=== PATIENT | female | born 1980 | race Caucasian/White ===

== ENCOUNTER 2017-05-14 09:42 | Emergency (ER) | payer BC ==
[2017-05-14 13:01] VITALS: BP 119/74
--- NOTE | 2017-05-14 14:42 | UC ---
Throat Pain/Nasal Amos HPI - HPI Summary HPI Summary: Patient presents with complaints of runny nose, sore throat and swollen glands x three days. SHe also complains of generalized fatigue and malaise. She states tomorrow is [place] and wants to feel better. She denies any chest pain, abdominal pain, nausea, vomiting or diarrhea. - History of Current Complaint Chief Complaint: UCRespiratory Stated Complaint: SINUS ISSUE Time Seen by Provider: 05/14/17 14:32 Hx Obtained From: Patient Hx Last Menstrual Period: 05/10/17 Onset/Duration: Gradual Onset, Lasting Days Severity: Mild Cough: Nonproductive Associated Signs & Symptoms: Positive: Sinus Discomfort, Nasal Discharge - Epiglottits Risk Factors Epiglottis Risk Factors: Negative - Allergies/Home Medications Allergies/Adverse Reactions: Allergies Allergy/AdvReac Type Severity Reaction Status Date / Time Azithromycin [From Zithromax] Allergy Severe Hives Verified 05/14/17 13:01 Red Dye Allergy Severe Hives Verified 05/14/17 13:01 Lactose Intolerance (GI) Allergy Mild GI Upset Verified 05/14/17 13:01 Clarithromycin [From Biaxin] Allergy Hives Verified 05/14/17 13:01 Penicillins Allergy Hives Verified 05/14/17 13:01 PMH/Surg Hx/FS Hx/Imm Hx Previously Healthy: Yes - Surgical History Surgical History: Yes Surgery Procedure, Year, and Place: Tonsillectomy. Laproscopy for Endometriosis. cholecystectomy July 2013. wisdom teeth - Family History Known Family History: Positive: Hypertension, Diabetes, Respiratory Disease - Social History Occupation: Employed Full-time Lives: Alone Alcohol Use: Occasionally Alcohol Amount: states a couple times a month Substance Use Type: None Smoking Status (MU): Former Smoker Type: Cigarettes Amount Used/How Often: 1/2PPD Length of Time of Smoking/Using Tobacco: 10YRS Have You Smoked in the Last Year: Yes When Did the Patient Quit Smoking/Using Tobacco: mar 2015 Household Exposure Type: Cigarettes - Immunization History Most Recent Influenza Vaccination: 2016 Most Recent Tetanus Shot: 2013 Most Recent Pneumonia Vaccination: NONE Review of Systems Constitutional: Negative Skin: Negative Eyes: Negative ENT: Sore Throat, Ear Ache, Nasal Discharge, Sinus Congestion, Sinus Pain/ Tenderness Respiratory: Negative Cardiovascular: Negative Gastrointestinal: Negative Genitourinary: Negative Motor: Negative Neurovascular: Negative Musculoskeletal: Negative Neurological: Negative Psychological: Negative Is Patient Immunocompromised?: No All Other Systems Reviewed And Are Negative: Yes Physical Exam Triage Information Reviewed: Yes Appearance: Well-Appearing Vital Signs: Initial Vital Signs Temp 98.9 F 05/14/17 12:55 Pulse 96 05/14/17 12:55 Resp 14 05/14/17 12:55 BP 119/74 05/14/17 12:55 Pulse Ox 100 05/14/17 12:55 Vital Signs Reviewed: Yes Eye Exam: Normal ENT Exam: Normal Neck exam: Normal Neck: Positive: 1 Respiratory Exam: Normal Cardiovascular Exam: Normal Abdominal Exam: Normal Musculoskeletal Exam: Normal Neurological Exam: Normal Psychological Exam: Normal Skin Exam: Normal Throat Pain/Nasal Course/Dx - Course Course Of Treatment: Patient presents with complaints of runny nose, sore throat and chest congestion. VSS. Nontoxic appearance. Rapid strep negative. Symtpoms consistent with viral syndrome. Recommend that the patient increase fluidis, rest, tylenol for pain or temp greater that 100. and if symptoms do not improve as anticipated to follow up with pcp. - Differential Dx/Diagnosis Differential Diagnosis/HQI/PQRI: URI Provider Diagnoses: uri Discharge - Discharge Plan Condition: Stable Disposition: HOME Patient Education Materials: Upper Respiratory Infection (ED) Referrals: Lucero Escalante NP [Primary Care Provider] -
== END 2017-05-14 15:00 | disposition home or self-care (01) ==
LOC: UCEAST 09:42
DX: J06.9 Acute upper respiratory infection, unspecified (principal); Z88.1 Allergy status to other antibiotic agents; Z88.0 Allergy status to penicillin; Z91.02 Food additives allergy status; Z91.011 Allergy to milk products; Z87.891 Personal history of nicotine dependence
CPT/HCPCS: 87651; 99211; G0463

== ENCOUNTER 2018-08-13 10:21 | Emergency (ER) | payer BC ==
[2018-08-13 10:49] VITALS: BP 109/71
--- NOTE | 2018-08-13 10:59 | UC ---
Throat Pain/Nasal Amos HPI - HPI Summary HPI Summary: started 5-6 days ago with sinus congestion. congestion is no better and now has facial pressure and ear pain - History of Current Complaint Chief Complaint: UCRespiratory Stated Complaint: SINUS COMPLAINT Time Seen by Provider: 08/13/18 10:46 Hx Obtained From: Patient Hx Last Menstrual Period: 05/10/17 ?: No Onset/Duration: Gradual Onset Severity: Moderate Pain Intensity: 7 Cough: None Associated Signs & Symptoms: Positive: Sinus Discomfort, Nasal Discharge Related History: Seasonal Allergies - Allergies/Home Medications Allergies/Adverse Reactions: Allergies Allergy/AdvReac Type Severity Reaction Status Date / Time azithromycin [From Zithromax] Allergy Hives Verified 08/13/18 10:50 clarithromycin [From Biaxin] Allergy Hives Verified 08/13/18 10:50 lactose Allergy GI Upset Verified 08/13/18 10:50 Penicillins Allergy Hives Verified 08/13/18 10:50 red dye Allergy Hives Verified 08/13/18 10:50 Home Medications: Home Medications Cholecalciferol (Vitamin D3) [Vitamin D3] 2,000 unit PO 08/13/18 [History] Multivitamin [Multivitamins] 1 cap PO 08/13/18 [History] PMH/Surg Hx/FS Hx/Imm Hx Previously Healthy: Yes - Surgical History Surgical History: Yes Surgery Procedure, Year, and Place: Tonsillectomy. Laproscopy for Endometriosis. cholecystectomy July 2013. wisdom teeth - Family History Known Family History: Positive: Hypertension, Diabetes, Respiratory Disease - Social History Occupation: Employed Full-time - cost accountant Lives: With Family Alcohol Use: Occasionally Alcohol Amount: states a couple times a month Substance Use Type: None Smoking Status (MU): Former Smoker Type: Cigarettes Amount Used/How Often: 1/2PPD Length of Time of Smoking/Using Tobacco: 10YRS Have You Smoked in the Last Year: Yes When Did the Patient Quit Smoking/Using Tobacco: mar 2015 Household Exposure Type: Cigarettes - Immunization History Most Recent Influenza Vaccination: 2016 Most Recent Tetanus Shot: 2012 Most Recent Pneumonia Vaccination: NONE Review of Systems All Other Systems Reviewed And Are Negative: Yes Constitutional: Positive: Fatigue Skin: Positive: Negative Eyes: Positive: Negative ENT: Positive: Ear Ache, Sinus Congestion, Sinus Pain/Tenderness. Negative: Sore Throat Respiratory: Positive: Negative. Negative: Cough Cardiovascular: Positive: Negative Musculoskeletal: Positive: Negative Neurological: Positive: Negative. Negative: Headache Psychological: Positive: Negative Is Patient Immunocompromised?: No Physical Exam Triage Information Reviewed: Yes Appearance: Well-Appearing, No Pain Distress, Well-Nourished Vital Signs: Initial Vital Signs Temp 98.5 F 08/13/18 10:46 Pulse 81 08/13/18 10:46 Resp 18 08/13/18 10:46 BP 109/71 08/13/18 10:46 Pulse Ox 98 08/13/18 10:46 Vital Signs Reviewed: Yes Eyes: Positive: Conjunctiva Clear ENT: Positive: Pharynx normal, Nasal congestion, Nasal drainage, TMs normal, Other - white PND Neck: Positive: Supple, No Lymphadenopathy Respiratory Exam: Normal Respiratory: Positive: Lungs clear Cardiovascular Exam: Normal Cardiovascular: Positive: RRR Neurological Exam: Normal Psychological Exam: Normal Skin Exam: Normal Skin: Negative: Rashes Throat Pain/Nasal Course/Dx - Differential Dx/Diagnosis Differential Diagnosis/HQI/PQRI: Influenza, Otitis Media, Pharyngitis, Sinusitis Provider Diagnosis: Sinusitis Discharge - Sign-Out/Discharge Documenting (check all that apply): Patient Departure All imaging exams completed and their final reports reviewed: No Studies - Discharge Plan Condition: Good Disposition: HOME Prescriptions: Doxycycline Hyclate 100 mg PO BID #20 tablet Patient Education Materials: Sinusitis (ED) Referrals: Lucero Escalante NP [Primary Care Provider] - 2 Days (if no better) Additional Instructions: drink plenty of fluids and rest use sudafed (from behind the counter) as directed start antibiotic and take as directed - Billing Disposition and Condition Condition: GOOD Disposition: Home
== END 2018-08-13 11:14 | disposition home or self-care (01) ==
LOC: UCEAST 10:21
DX: J32.9 Chronic sinusitis, unspecified (principal); Z87.891 Personal history of nicotine dependence; Z88.1 Allergy status to other antibiotic agents; Z88.0 Allergy status to penicillin; Z91.09 Other allergy status, other than to drugs and biological substances; Z91.011 Allergy to milk products
CPT/HCPCS: 99212; G0463

== ENCOUNTER → 2018-09-07 12:02 | Emergency (ER) | payer BC ==
[~2018-09-07 12:02] MED LIST: KCL 20 MEQ/100 ML IVPREMIX* 20 MEQ/100 ML BAG IV ONE; NS 0.9% 1000 ML** 2,000 ML IV ONE; Ondansetron INJ* 2 MG/ML VIAL IV ONE; Potassium Chloride LIQUID* 20 MEQ PACKET PO ONE
[2018-09-07 12:46] LABS: ABS Basophils 0 10^3/ul (0-0.2); ABS Eosinophils 0 10^3/ul (0-0.6); ABS Monocytes 0.3 10^3/ul (0-0.8); ABS Nucleated RBC 0 10^3/ul; Eosinophil % 0 %; Hematocrit 39 % (33-41); Hemoglobin 13.4 g/dL (12.0-16.0); Lymphocyte % 10.8 %; Mean Corpuscular HGB Conc 35 g/dL (31-36); Mean Corpuscular Hemoglobin 31 pg (27-31); Mean Corpuscular Volume 89 fL (80-97); Mean Platelet Volume 8.3 fL (7.4-10.4); Nucleated Red Blood Cells % 0.1; Platelet Count 225 10^3/uL (150-450); Red Blood Count 4.35 10^6 /uL (3.70-4.87); Red Cell Distribution Width 12 % (10.5-15); White Blood Count 9.3 10^3/uL (3.5-10.8)
[2018-09-07 13:11] LABS: ALT 15 U/L (7-52); AST 18 U/L (13-39); Albumin 4.4 g/dL (3.2-5.2); Albumin/Globulin Ratio 1.6 (1-3); Alkaline Phosphatase 71 U/L (34-104); Anion Gap 12 mmol/L (2-11); Blood Urea Nitrogen 18 mg/dL (6-24); C Reactive Protein 48.86 mg/L (<8.01); CO2 Carbon Dioxide 23 mmol/L (22-32); Calcium 9.3 mg/dL (8.6-10.3); Chloride 103 mmol/L (101-111); EGFR African American 104.6 (>60); EGFR Non-African American 86.5 (>60); Globulin 2.7 g/dL (2-4); Glucose 105 mg/dL (70-100); Magnesium 1.9 mg/dL (1.9-2.7); Potassium 2.8 mmol/L (3.5-5.0); Sodium 138 mmol/L (135-145); Total Protein 7.1 g/dL (6.4-8.9)
[2018-09-07 13:16] LABS: HCG Pregnancy < 0.60 mIU/mL
--- NOTE | 2018-09-07 13:34 | ED ---
GI/ HPI - HPI Summary HPI Summary: 38-year-old female presents with nausea and vomiting for the past day. She states she started to get some cramping into her hand. Patient been able to keep anything down. States she also has bilateral flank pain. She denies any dysuria but she states she cannot feel her urination at baseline. She denies any fever. has had intermittent abdominal pain. no cough, chest pain or SOB. - History of Current Complaint Chief Complaint: EDAbdPain Time Seen by Provider: 09/07/18 12:13 Stated Complaint: NAUSEA/VOMITING PER EMS Hx Last Menstrual Period: 05/10/17 Pain Intensity: 6 - Allergy/Home Medications Allergies/Adverse Reactions: Allergies Allergy/AdvReac Type Severity Reaction Status Date / Time azithromycin [From Zithromax] Allergy Hives Verified 09/07/18 12:13 clarithromycin [From Biaxin] Allergy Hives Verified 09/07/18 12:13 lactose Allergy GI Upset Verified 09/07/18 12:13 Penicillins Allergy Hives Verified 09/07/18 12:13 red dye Allergy Hives Verified 09/07/18 12:13 PMH/Surg Hx/FS Hx/Imm Hx Endocrine/Hematology History: Denies: Hx Diabetes, Hx Thyroid Disease Cardiovascular History: Denies: Hx Hypertension Respiratory History: Denies: Hx Asthma, Hx Chronic Obstructive Pulmonary Disease (COPD) GI History: Denies: Hx Ulcer - Cancer History Hx Chemotherapy: No Hx Radiation Therapy: No - Surgical History Surgery Procedure, Year, and Place: Tonsillectomy. Laproscopy for Endometriosis. cholecystectomy July 2013. wisdom teeth Hx Anesthesia Reactions: No - Immunization History Immunizations Up to Date: Yes Infectious Disease History: No Infectious Disease History: Denies: Hx Clostridium Difficile, Hx Hepatitis, Hx Human Immunodeficiency Virus (HIV), Hx of Known/Suspected MRSA, Hx Shingles, Hx Tuberculosis, Hx Known/ Suspected VRE, Hx Known/Suspected VRSA, History Other Infectious Disease, Traveled Outside the [place] in Last 30 Days - Family History Known Family History: Positive: Hypertension, Diabetes, Respiratory Disease - Social History Alcohol Use: Occasionally Alcohol Amount: states a couple times a month Substance Use Type: Reports: None Smoking Status (MU): Former Smoker Type: Cigarettes Amount Used/How Often: 1/2PPD Length of Time of Smoking/Using Tobacco: 10YRS Have You Smoked in the Last Year: Yes Review of Systems Negative: Fever Negative: Chest Pain Negative: Shortness Of Breath Positive: Abdominal Pain, Vomiting, Diarrhea, Nausea Positive: Other - muscle cramps All Other Systems Reviewed And Are Negative: Yes Physical Exam Triage Information Reviewed: Yes Vital Signs On Initial Exam: Initial Vitals Temp Pulse Resp BP Pulse Ox 99.5 F 88 18 109/87 100 09/07/18 12:06 09/07/18 12:06 09/07/18 12:06 09/07/18 12:06 09/07/18 12:06 Vital Signs Reviewed: Yes Appearance: Positive: Well-Appearing Skin: Positive: Warm, Dry Head/Face: Positive: Normal Head/Face Inspection Eyes: Positive: Normal, EOMI, TOMMY, Conjunctiva Clear ENT: Positive: Normal ENT inspection, Pharynx normal, TMs normal Respiratory/Lung Sounds: Positive: Clear to Auscultation, Breath Sounds Present Cardiovascular: Positive: Normal, RRR Abdomen Description: Positive: Nontender, Soft. Negative: CVA Tenderness (R), CVA Tenderness (L) Bowel Sounds: Positive: Present Musculoskeletal: Positive: Normal Neurological: Positive: Normal Psychiatric: Positive: Normal Diagnostics - Vital Signs Vital Signs Temp Pulse Resp BP Pulse Ox 09/07/18 12:51 90 120/82 99 09/07/18 12:09 97 109/87 100 09/07/18 12:07 91 100 09/07/18 12:06 99.5 F 88 18 109/87 100 - Laboratory Lab Results: Lab Results 09/07/18 09/07/18 09/07/18 Range/Units 12:38 12:38 12:38 WBC 9.3 (3.5-10.8) 10^3/uL RBC 4.35 (3.70-4.87) 10^6 /uL Hgb 13.4 (12.0-16.0) g/dL Hct 39 (33-41) % MCV 89 (80-97) fL MCH 31 (27-31) pg MCHC 35 (31-36) g/dL RDW 12 (10.5-15) % Plt Count 225 (150-450) 10^3/uL MPV 8.3 (7.4-10.4) fL Neut % (Auto) 85.4 % Lymph % (Auto) 10.8 % [place] % (Auto) 3.5 % Eos % (Auto) 0 % Baso % (Auto) 0.3 % Absolute Neuts (auto) 8.0 H (1.5-7.7) 10^3/ul Absolute Lymphs (auto) 1.0 (1.0-4.8) 10^3/ul Absolute Monos (auto) 0.3 (0-0.8) 10^3/ul Absolute Eos (auto) 0 (0-0.6) 10^3/ul Absolute Basos (auto) 0 (0-0.2) 10^3/ul Absolute Nucleated RBC 0 10^3/ul Nucleated RBC % 0.1 Sodium 138 (135-145) mmol/L Potassium 2.8 L (3.5-5.0) mmol/L Chloride 103 (101-111) mmol/L Carbon Dioxide 23 (22-32) mmol/L Anion Gap 12 H (2-11) mmol/L BUN 18 (6-24) mg/dL Creatinine 0.75 (0.51-0.95) mg/dL Est GFR ( Amer) 104.6 (>60) Est GFR (Non-Af Amer) 86.5 (>60) BUN/Creatinine Ratio 24.0 H (8-20) Glucose 105 H (70-100) mg/dL Lactic Acid 2.0 (0.5-2.0) mmol/L Calcium 9.3 (8.6-10.3) mg/dL Magnesium 1.9 (1.9-2.7) mg/dL Total Bilirubin 1.40 H (0.2-1.0) mg/dL AST 18 (13-39) U/L ALT 15 (7-52) U/L Alkaline Phosphatase 71 (34-104) U/L C-Reactive Protein 48.86 H (<8.01) mg/L Total Protein 7.1 (6.4-8.9) g/dL Albumin 4.4 (3.2-5.2) g/dL Globulin 2.7 (2-4) g/dL Albumin/Globulin Ratio 1.6 (1-3) Lipase < 10 L (11.0-82.0) U/L Beta HCG, Quant < 0.60 mIU/mL Result Diagrams: 09/07/18 12:38 09/07/18 12:38 Lab Statement: Any lab studies that have been ordered have been reviewed, and results considered in the medical decision making process. - EKG No standard instances Cardiac Rate: NL EKG Rhythm: Sinus Rhythm Summary of EKG Findings: sinus rhythm Re-Evaluation - Re-Evaluation First Eval Re-Evaluation Time: 13:33 Change: Improved Comment: feeling better Second Eval Re-Evaluation Time: 15:35 Comment: tolerating potassium oral Third Eval Re-Evaluation Time: 16:29 Change: Improved Comment: feeling ready to go home GIGU Course/Dx - Course Course Of Treatment: 38-year-old female presents with nausea and vomiting for the past day. She states she started to get some cramping into her hand. Patient been able to keep anything down. States she also has bilateral flank pain. She denies any dysuria but she states she cannot feel her urination at baseline. She denies any fever. has had intermittent abdominal pain. no cough, chest pain or SOB. on exam neg CVA tenderness. nontender abd. wbc normal. potassium 2.98 so gave run of potassium and oral potassium. urine no infection. patient is feeling better. will discharge with zofran and two dose of potassium for next two days. patient understand and agrees with plan. - Diagnoses Differential Diagnoses - Female: Gastroenteritis (Viral), Gastroenteritis ( Bacterial), Urinary Tract Infection Provider Diagnoses: Vomiting, Hypokalemia Discharge - Sign-Out/Discharge Documenting (check all that apply): Patient Departure Patient Received Moderate/Deep Sedation with Procedure: No - Discharge Plan Condition: Good Disposition: HOME Prescriptions: Ondansetron ODT TAB* [Zofran 4 MG Odt TAB*] 4 mg PO Q6H PRN #16 tab.odt PRN Reason: Nausea Potassium Chlor TAB* [Potassium Chlor TAB 20 MEQ*] 20 meq PO DAILY #2 tab.er Patient Education Materials: Acute Nausea and Vomiting (ED) Referrals: Lucero Escalante NP [Primary Care Provider] - Additional Instructions: Can take Zofran every 6 hours as needed for nausea take potassium daily for 2 more days Drink small amounts of fluid as tolerated When able to eat follow BRAT diet: Bananas, rice, applesauce, toast Take ibuprofen or Tylenol for pain as needed every 6 hours Follow up with primary within 5 days Return to ED if develop any new or worsening symptoms - Billing Disposition and Condition Condition: GOOD Disposition: Home
[2018-09-07 16:11] LABS: Urine Appearance Clear; Urine Bilirubin Negative (Negative); Urine Blood Negative (Negative); Urine Color Yellow; Urine Glucose Negative (Negative); Urine Ketones 1+ (Negative); Urine Nitrite Negative (Negative); Urine Protein Negative (Negative); Urine Specific Gravity 1.021 (1.010-1.030); Urine Urobilinogen Negative (Negative)
[2018-09-07 16:38] VITALS: BP 125/80
== END | disposition home or self-care (01) ==
LOC: ED 12:02
DX: R11.10 Vomiting, unspecified (principal); R94.31 Abnormal electrocardiogram [ECG] [EKG]; E87.6 Hypokalemia; Z88.3 Allergy status to other anti-infective agents; Z88.0 Allergy status to penicillin
CPT/HCPCS: 36415; 80053; 81003; 83605; 83690; 83735; 84702; 85025; 86140; 93005; 96361; 96365; 96366; 96375; 99283; A9270-GY; J2405; J3480

== ENCOUNTER 2018-11-30 12:44 | Observation (INO) | payer BC ==
--- OUTSIDE RECORDS SUMMARY | 2018-11-30 13:08 | XMS REPORT | Continuity of Care Document ---
:1980 External Reference #:[id number] Author Name Lucinda Mccurdy Care Team Providers Name Role Phone Dulce Cm MD Primary Care Physician Unavailable Payers Date Identification Numbers Payment Provider Subscriber Effective: 2013 Policy Number: [id number] [employer] Facets Theresa Marie PayID: [id number] [address] [address] [place] [address] Effective: 2010 Policy Number: [id number] [employer] Theresa Marie Expires: 2013 PayID: [id number] [address] [address] [place] [address] Problems Active Problems Provider Date Mixed hypercholesterolemia and Gerardo Gaviria NP Onset: 01/30/2015 hypertriglyceridemia Resolved Problems Tobacco user Myrna Li M.D. Onset: 08/25/2011 Resolved: 05/25/2017 Family History Date Family Member(s) Observation Comments Father NE (age 50's),Stents, HTN, Hyperlipidemia Age 66 Mother Hypercholesterolemia Arthritis - Total Knee Replacement Age 65 Siblings 3 2 Sisters - Healthy 1 Brother - Healthy, ? diverticulosis Paternal Grandfather Emphysema Pneumonia age 70 Paternal Grandmother Emphysema age 70 Maternal Grandfather Coronary Artery Disease (CAD) CABG 4 vessel at age 84 Age 85 Maternal Grandmother Cancer Maternal Grandmother Breast Cancer (postmenopausal) Social History Type Date Description Comments Sex Unknown ETOH Use Currently consumes 0 - 5 per week alcohol Tobacco Use Start: Unknown End: Patient is a former Started age 18; Quit Unknown smoker Mar 2015; smoked less than 10 cigs per day Smoking Status Reviewed: 11/29/18 Patient is a former Started age 18; Quit smoker Mar 2015; smoked less than 10 cigs per day Exercise Exercises sporadically Type/Frequency Allergies, Adverse Reactions, Alerts Active Allergies Reaction Severity Comments Date Zithromax hives Moderate 08/25/2011 Augmentin 04/01/2015 Penicillins 04/11/2015 Biaxin Nausea, Hives, swelling 05/27/2016 Medications Active Medications SIG Qnty Indications Ordering Date Provider Omeprazole 1 by mouth every 90caps R14.0 Arlene Marie, 11/16/[address] day 1/2 hour THERAPEUTIC RADIOLOGIST before breakfast Simethicone Extra one by mouth four 60caps R14.0 Lucero Escalante, 11/13/2018 Strength times a day as N.P. 125mg Capsules needed Ondansetron HCL one by mouth 30tabs Lucero Escalante, 11/10/2018 4mg Tablets every 6 hours as N.P. needed for nausea Sudafed 12 Hour 1 by mouth twice 14tabs Lucero Escalante, 10/31/2017 120mg day as needed N.P. Tablets ER 12HR Vitamin D-3 2 by mouth every Lucero Escalante, 11/01/2016 1000Unit day N.P. Capsules Aleve 1-2 po qd prn 60caps Unknown 220mg Capsules during periods Levocetirizine Unknown Dihydrochloride 5mg Tablets Nasonex Unknown 50mcg/Act Suspension Complete 1 by mouth every Unknown 14-0.4mg day Tablets Cranberry one daily Unknown 450mg Tablets Fibercon one to two Unknown 625mg Tablets tablets daily Miralax 17 grams by mouth Unknown Powder every day as needed Probiotic 1 by mouth every Unknown Capsules day History Medications Omeprazole 1 by mouth every 30tabs R14.0 Lucero Escalante, 09/12/2018 - 20mg day N.P. 11/16/2018 Tablets Doxycycline Hyclate Twice Daily 20tabs Unknown 08/13/2018 - 09/11/2018 100mg Tablets Doxycycline Hyclate 1 po bid x 10 20tabs L03.032 Lucero Escalante, 2018 - days N.P. 06/25/2018 100mg Tablets Doxycycline Hyclate 1 po bid x 10 20tabs L03.032 Lucero Escalante, 2017 - days N.P. 05/29/2018 100mg Tablets Levofloxacin one by mouth 7tabs J01.90 Lucero Escalante, 10/31/2017 - 500mg daily for 7 days N.P. 11/07/2017 Tablets Meclizine HCL take one tablet 30tabs H81.10 Jigar Martinez, PARUL 08/15/2017 - 25mg every 6 hours as 10/31/2017 Tablets needed for dizziness Doxycycline Hyclate 1 tablet twice a 20tabs J01.90 Azucena Grady, 2017 - day x 10 days M.D. 06/04/2017 100mg Tablets Ciprofloxacin HCL one by mouth 14tabs N39.0 Lucero Escalante, 11/01/2016 - twice a day for N.P. 11/08/2016 250mg Tablets 7 days Biaxin one by mouth 20tabs Z00.01 Lucero Escalante, 05/19/2016 - 500mg Tablets twice daily for N.P. 05/27/2016 10 days Vitamin D3 one by mouth 8caps Lucero Escalante, 04/26/2016 - [id number] once weekly N.P. 06/25/2016 Capsules Tobramycin 2 drops in 5ml H10.9 Dulce 10/21/2015 - 0.3% affected eye Cotton, M.D. 03/15/2016 Solution every 4 hours Biaxin one by mouth 20tabs Z00.01 Lucero Escalante, 04/11/2015 - 500mg Tablets twice daily for N.P. 04/21/2015 10 days Fluconazole one by mouth september 3tabs Z00.01 Lucero Escalante, 02/17/2015 - 150mg repeat in 3 days N.P. 04/11/2015 Tablets as needed Amoxicillin/Clavulan one tablet by 20tabs Z00.01 Lucero Escalante, 2014 - ate Potassium mouth twice N.P. 02/27/2015 daily for 10 875-125mg Tablets days Benadryl Allergy 1 tab as needed 2tabs Gerardo Gaviria, PARUL 02/06/2015 - 25mg 04/11/2015 Tablets Flonase Allergy Use as Directed 16units Lucero Escalante, 01/17/2015 - Relief 2 Sprays In Each N.P. 02/05/2015 50mcg/Act Nostril Daily as Suspension Needed Flonase Use as Directed 16units Jigar Martinez NP 01/17/2015 - 50mcg/Act 2 Sprays In Each 04/11/2015 Suspension Nostril Daily as Needed Benzonatate one by mouth 30caps 465.9 Lucero Renteriabrennan, 06/20/2014 - 200mg three times N.P. 02/05/2015 Capsules daily as needed for cough Biaxin one by mouth 20tabs 461.9 Lucero Renteriabrennan, 06/18/2014 - 500mg Tablets twice daily for N.P. 06/28/2014 10 days Benzonatate take one or two 30caps 465.9 Lucero Ava, 04/24/2014 - 100mg capsules every 8 N.P. 06/20/2014 Capsules hours as needed for cough. Cleocin-T apply thin layer 30units 706.1 Gerardo Gaviria NP 02/15/2014 - 1% Gel once daily as 10/14/2015 directed Loratadine 1 tablet by 30units 477.9 Myrna Li, 02/14/2013 - 10mg mouth daily as M.D. 04/11/2015 needed Kariva Take One Tablet 28tabs Lucero Escalante, 01/25/2013 - 0.15-0.02/0.01 By Mouth Once N.P. 04/23/2016 mg (21/5) Tablets Daily as Directed Ondansetron Odt take 1-2 tablets 60tabs 787.03 Myrna Li, 12/22/2012 - 4mg every 8hours as M.D. 02/14/2013 Tablets Dispers needed for nausea Tramadol HCL 1-2 tablets 30tabs 733.6 Myrna Li, 12/22/2012 - 50mg every 8 hours as M.D. 02/14/2013 Tablets needed Diflucan take 1 tablet 3tabs Myrna Li, 07/31/2012 - 150mg every 72 hrs for M.D. 12/22/2012 Tablets 3 doses Prednisone Take 2 tablets 30tabs Myrna Li, 07/14/2012 - 20mg twice daily for M.D. 07/28/2012 Tablets 5 days, then 1 tablet twice daily for 5 days Amoxicillin/Clavulan take 1 tablet 28tabs Myrna Li, 07/14/2012 - ate Potassium twice daily M.D. 12/22/2012 until gone. 500-125mg Tablets Tylenol prn Myrna Suarezell, 07/07/2012 - 325mg Tablets M.D. 02/14/2013 Biaxin one by mouth 20tabs 461.9 Lucero Escalante, 03/28/2012 - 500mg Tablets twice daily for N.P. 04/07/2012 10 days Benzonatate one by mouth 30caps 461.9 Lucero Escalante, 03/28/2012 - 100mg three times N.P. 04/11/2012 Capsules daily as needed for cough Mircette 1 po qd 30tabs Myrna Li, 02/28/2012 - M.D. 03/28/2012 0.15-0.02/0.01 mg (2 Tablets Cryselle-28 1 po qd 1tabs Myrna Guillermo, - M.D. 02/28/2012 0.3-30mg-mcg Tablets Kariva 1 po qd 28tabs Myrna Li, - 0.15-0.02/0.01 M.D. 01/25/2013 mg (2 Tablets Percocet 1-2 po q4-6h prn 60tabs Unknown - 5-325mg pain 02/15/2014 Tablets Ultracet 1 - 2 po q4-6hr 60tabs Unknown - 37.5-325mg prn pain 02/15/2014 Tablets Flonase Use as Directed 16units Jigar Martinez NP - 50mcg/Act 2 Sprays In Each 01/17/2015 Suspension Nostril Daily as Needed Immunizations CPT Code Status Date Vaccine Reaction Lot # [id number] Given 03/21/2018 Influenza Virus Vaccine, [id number] Quadrivalent, Split, Preservative Free 67529 Given 03/17/2017 Influenza Virus Vaccine, [id number] Quadrivalent, Split, Preservative Free 78156 Given 03/15/2016 Influ Virus Vaccine, no reaction noted ... [id number] Quadrivalent, Split Virus, [place] [address] Given 02/06/2015 Influenza Virus Vaccine, [id number] Quadrivalent, Split, Preservative Free 69243 Given 02/15/2014 Influenza Virus Vaccine, [id number] Quadrivalent, Split, Preservative Free 94331 Given 03/14/2013 Tdap - Tetanus/Diptheria/Acellular Pertussis 70841 Given 03/14/2013 Tdap - [id number] Tetanus/Diptheria/Acellular Pertussis 04069 Given 03/14/2013 Flu Vaccine Split Virus [id number] Preservative Free For Indiv 3Yr Older Vital Signs Date Vital Result Comment 11/29/2018 10:02am Height 62.5 inches 5'2.50" Weight 155.00 lb Heart Rate 91 /min BP Systolic 105 mmHg BP Diastolic 77 mmHg Body Temperature 100.6 F O2 % BldC Oximetry 99 % BMI (Body Mass Index) 27.9 kg/m2 11/16/2018 10:17am Height 62.5 inches 5'2.50" Weight 158.00 lb Heart Rate 67 /min BP Systolic 108 mmHg BP Diastolic 73 mmHg O2 % BldC Oximetry 100 % BMI (Body Mass Index) 28.4 kg/m2 11/13/2018 3:58pm Height 62.5 inches 5'2.50" Weight 159.25 lb Heart Rate 73 /min BP Systolic 104 mmHg BP Diastolic 69 mmHg Body Temperature 98.7 F O2 % BldC Oximetry 98 % BMI (Body Mass Index) 28.7 kg/m2 09/12/2018 4:03pm Height 62.5 inches 5'2.50" Weight 161.38 lb Heart Rate 65 /min BP Systolic 117 mmHg Body Temperature 98.3 F O2 % BldC Oximetry 98 % BMI (Body Mass Index) 29.0 kg/m2 06/15/2018 11:09am Height 62.5 inches 5'2.50" Heart Rate 67 /min BP Systolic 102 mmHg BP Diastolic 67 mmHg Body Temperature 98.0 F O2 % BldC Oximetry 96 % 05/19/2018 10:04am Height 62.5 inches 5'2.50" Weight 166.25 lb Heart Rate 72 /min BP Systolic 117 mmHg BP Diastolic 78 mmHg Body Temperature 98.9 F O2 % BldC Oximetry 98 % BMI (Body Mass Index) 29.9 kg/m2 03/21/2018 9:16am Height 62.5 inches 5'2.50" Weight 166.00 lb Heart Rate 89 /min BP Systolic 115 mmHg BP Diastolic 72 mmHg Body Temperature 97.2 F O2 % BldC Oximetry 98 % BMI (Body Mass Index) 29.9 kg/m2 10/31/2017 11:44am Weight 160.00 lb Heart Rate 88 /min BP Systolic 100 mmHg BP Diastolic 60 mmHg Body Temperature 99.2 F O2 % BldC Oximetry 98 % 08/15/2017 2:50pm Weight 160.50 lb Heart Rate 70 /min BP Systolic 124 mmHg BP Diastolic 76 mmHg Body Temperature 98.3 F O2 % BldC Oximetry 99 % 05/25/2017 1:30pm Weight 158.00 lb Heart Rate 87 /min BP Systolic Sitting 110 mmHg BP Diastolic Sitting 84 mmHg Body Temperature 98.7 F O2 % BldC Oximetry 97 % 03/17/2017 9:17am Height 62.5 inches 5'2.50" Weight 157.50 lb Heart Rate 74 /min BP Systolic 116 mmHg BP Diastolic 66 mmHg Body Temperature 97.5 F O2 % BldC Oximetry 97 % BMI (Body Mass Index) 28.3 kg/m2 11/01/2016 10:33am Weight 153.75 lb Heart Rate 63 /min BP Systolic 112 mmHg BP Diastolic 60 mmHg Body Temperature 98.6 F O2 % BldC Oximetry 98 % 05/19/2016 3:17pm Weight 156.00 lb with shoes Heart Rate 95 /min BP Systolic Sitting 100 mmHg BP Diastolic Sitting 70 mmHg Body Temperature 97.9 F O2 % BldC Oximetry 99 % 04/23/2016 9:52am Weight 157.00 lb Heart Rate 73 /min BP Systolic Sitting 114 mmHg BP Diastolic Sitting 74 mmHg O2 % BldC Oximetry 99 % 03/15/2016 1:41pm Height 61.5 inches 5'1.50" Weight 156.00 lb Heart Rate 73 /min BP Systolic 122 mmHg BP Diastolic 79 mmHg Body Temperature 99.4 F O2 % BldC Oximetry 98 % BMI (Body Mass Index) 29.0 kg/m2 10/21/2015 11:33am Heart Rate 82 /min BP Systolic Sitting 127 mmHg BP Diastolic Sitting 84 mmHg Body Temperature 99.1 F O2 % BldC Oximetry 98 % 10/14/2015 9:36am Heart Rate 87 /min BP Systolic Sitting 128 mmHg BP Diastolic Sitting 84 mmHg Body Temperature 98.8 F O2 % BldC Oximetry 98 % 04/11/2015 1:31pm Weight 144.00 lb Heart Rate 88 /min BP Systolic Sitting 108 mmHg BP Diastolic Sitting 64 mmHg Body Temperature 99.1 F O2 % BldC Oximetry 98 % 02/25/2015 1:19pm Heart Rate 89 /min BP Systolic Sitting 118 mmHg BP Diastolic Sitting 85 mmHg Body Temperature 99.1 F O2 % BldC Oximetry 98 % 02/17/2015 2:26pm Heart Rate 95 /min BP Systolic Sitting 117 mmHg BP Diastolic Sitting 81 mmHg Body Temperature 99.3 F O2 % BldC Oximetry 98 % 02/06/2015 9:55am Height 62 inches 5'2" Weight 139.12 lb Heart Rate 83 /min BP Systolic Sitting 116 mmHg BP Diastolic Sitting 72 mmHg Body Temperature 98.4 F O2 % BldC Oximetry 99 % BMI (Body Mass Index) 25.4 kg/m2 06/18/2014 4:13pm Height 62.75 inches 5'2.75" Weight 135.00 lb Heart Rate 97 /min BP Systolic Sitting 108 mmHg BP Diastolic Sitting 64 mmHg Body Temperature 98.2 F O2 % BldC Oximetry 98 % BMI (Body Mass Index) 24.1 kg/m2 04/24/2014 9:38am Height 62.75 inches 5'2.75" Weight 134.00 lb Heart Rate 76 /min BP Systolic 114 mmHg BP Diastolic 70 mmHg Body Temperature 98.5 F BMI (Body Mass Index) 23.9 kg/m2 02/15/2014 10:50am Height 62.75 inches 5'2.75" Weight 130.50 lb Heart Rate 76 /min BP Systolic Sitting 118 mmHg BP Diastolic Sitting 74 mmHg O2 % BldC Oximetry 98 % BMI (Body Mass Index) 23.3 kg/m2 08/03/2013 10:03am Weight 132.31 lb Heart Rate 72 /min BP Systolic Sitting 102 mmHg BP Diastolic Sitting 64 mmHg Body Temperature 98.1 F 06/28/2013 11:24am Weight 138.00 lb Heart Rate 76 /min BP Systolic Sitting 110 mmHg BP Diastolic Sitting 68 mmHg Body Temperature 98.5 F 02/14/2013 2:13pm Height 62.5 inches 5'2.50" Weight 133.00 lb Heart Rate 70 /min BP Systolic Sitting 104 mmHg BP Diastolic Sitting 60 mmHg BMI (Body Mass Index) 23.9 kg/m2 12/22/2012 2:31pm Weight 132.00 lb Heart Rate 82 /min BP Systolic Sitting 104 mmHg BP Diastolic Sitting 62 mmHg O2 % BldC Oximetry 98 % 07/28/2012 1:22pm Height 62 inches 5'2" Weight 137.75 lb Heart Rate 100 /min BP Systolic Sitting 118 mmHg BP Diastolic Sitting 70 mmHg Body Temperature 99.7 F BMI (Body Mass Index) 25.2 kg/m2 07/07/2012 11:36am Height 62 inches 5'2" Weight 133.00 lb Heart Rate 80 /min BP Systolic Sitting 110 mmHg BP Diastolic Sitting 70 mmHg Body Temperature 99.8 F BMI (Body Mass Index) 24.3 kg/m2 03/28/2012 10:41am Height 62 inches 5'2" Weight 138.00 lb Heart Rate 104 /min BP Systolic Sitting 122 mmHg BP Diastolic Sitting 68 mmHg Body Temperature 99.0 F BMI (Body Mass Index) 25.2 kg/m2 01/07/2012 2:01pm Height 62 inches 5'2" Weight 134.00 lb Heart Rate 76 /min BP Systolic Sitting 114 mmHg BP Diastolic Sitting 66 mmHg BMI (Body Mass Index) 24.5 kg/m2 11/03/2011 11:25am Height 62 inches 5'2" Weight 135.00 lb Heart Rate 72 /min BP Systolic Sitting 120 mmHg BP Diastolic Sitting 76 mmHg O2 % BldC Oximetry 98 % BMI (Body Mass Index) 24.7 kg/m2 08/25/2011 10:05am Height 62 inches 5'2" Weight 139.00 lb Heart Rate 74 /min BP Systolic Sitting 114 mmHg BP Diastolic Sitting 62 mmHg BMI (Body Mass Index) 25.4 kg/m2 Results Test Date Facility Test Result H/L Range Note Basic Metabolic 09/12/2018 [facility] Sodium 140 mmol/L N 135- [address] [place] [address] [phone] Potassium 3.9 mmol/L N 3.5-5.0 Chloride 107 mmol/L N 101-111 Co2 Carbon Dioxide 27 mmol/L N 22-32 Anion Gap 6 mmol/L N 2-11 Glucose 81 mg/dL N 70-100 Blood Urea Nitrogen 12 mg/dL N 6-24 Creatinine 0.75 mg/dL N 0.51-0.95 BUN/Creatinine Ratio 16.0 N 8-20 Calcium 9.1 mg/dL N 8.6-10.3 Egfr Non- 86.5 >60 Egfr 104.6 >60 1 Laboratory test 09/07/2018 [facility] Magnesium 1.9 mg/dL N 1.9-2.7 finding [address] [place] [address] [phone] Lipase < 10 U/L Low 11.0-82.0 C Reactive Protein 48.86 mg/L High <8.01 HCG < 0.60 mIU/mL 2 Lactic Acid 2.0 mmol/L N 0.5-2.0 3 Urinalysis Profile 09/07/2018 [facility] Urine Color Yellow [address] [place] [address] [phone] Urine Appearance Clear Urine Specific [place] 1.021 N 1.010-1.030 Urine pH 8.0 N 5-9 Urine Urobilinogen Negative Negative Urine Ketones 1+ Abnormal Negative Urine Protein Negative Negative Urine Leukocytes Negative Negative Urine Blood Negative Negative Urine Nitrite Negative Negative Urine Bilirubin Negative Negative Urine Glucose Negative Negative Comp Metabolic Panel 09/07/2018 [facility] Sodium 138 mmol/L N 135-145 [address] [place] [address] [phone] Potassium 2.8 mmol/L Low 3.5-5.0 Chloride 103 mmol/L N 101-111 Co2 Carbon Dioxide 23 mmol/L N 22-32 Anion Gap 12 mmol/L High 2-11 Glucose 105 mg/dL High 70-100 Blood Urea Nitrogen 18 mg/dL N 6-24 Creatinine 0.75 mg/dL N 0.51-0.95 BUN/Creatinine Ratio 24.0 High 8-20 Calcium 9.3 mg/dL N 8.6-10.3 Total Protein 7.1 g/dL N 6.4-8.9 Albumin 4.4 g/dL N 3.2-5.2 Globulin 2.7 g/dL N 2-4 Albumin/Globulin Ratio 1.6 N 1-3 Total Bilirubin 1.40 mg/dL High 0.2-1.0 Alkaline Phosphatase 71 U/L N 34-104 Alt 15 U/L N 7-52 Ast 18 U/L N 13-39 Egfr Non- 86.5 >60 Egfr 104.6 >60 4 CBC Auto Diff 09/07/2018 [facility] White Blood 9.3 10^3/uL N 3.5-10.[address] [place] [address] [phone] Red Blood Count 4.35 10^6/uL N 3.70-4.87 Hemoglobin 13.4 g/dL N 12.0-16.0 Hematocrit 39 % N 33-41 Mean Corpuscular Volume 89 fL N 80-97 Mean Corpuscular Hemoglobin 31 pg N 27-31 Mean Corpuscular HGB Conc 35 g/dL N 31-36 Red Cell Distribution Width 12 % N 10.5-15 Platelet Count 225 10^3/uL N 150-450 Mean Platelet Volume 8.3 fL N 7.4-10.4 Abs Neutrophils 8.0 10^3/uL High 1.5-7.7 Abs Lymphocytes 1.0 10^3/uL N 1.0-4.8 Abs Monocytes 0.3 10^3/uL N 0-0.8 Abs Eosinophils 0 10^3/uL N 0-0.6 Abs Basophils 0 10^3/uL N 0-0.2 Abs Nucleated RBC 0 10^3/uL Granulocyte % 85.4 % Lymphocyte % 10.8 % Monocyte % 3.5 % Eosinophil % 0 % Basophil % 0.3 % Nucleated Red Blood Cells % 0.1 Comp Metabolic Panel 03/09/2018 [facility] Sodium 139 mmol/L N 135-[address] [place] [address] [phone] Potassium 4.0 mmol/L N 3.5-5.0 Chloride 106 mmol/L N 101-111 Co2 Carbon Dioxide 26 mmol/L N 22-32 Anion Gap 7 mmol/L N 2-11 Glucose 90 mg/dL N 70-100 Blood Urea Nitrogen 13 mg/dL N 6-24 Creatinine 0.78 mg/dL N 0.51-0.95 BUN/Creatinine Ratio 16.7 N 8-20 Calcium 9.3 mg/dL N 8.6-10.3 Total Protein 6.5 g/dL N 6.4-8.9 Albumin 4.3 g/dL N 3.2-5.2 Globulin 2.2 g/dL N 2-4 Albumin/Globulin Ratio 2.0 N 1-3 Total Bilirubin 0.70 mg/dL N 0.2-1.0 Alkaline Phosphatase 67 U/L N 34-104 Alt 13 U/L N 7-52 Ast 16 U/L N 13-39 Egfr Non- 83.1 >60 Egfr 100.6 >60 5 Lipid Profile 03/09/2018 [facility] Triglycerides 233 mg/dL 6 (Trig/Chol/HDL) [address] [place] [address] [phone] Cholesterol 231 mg/dL 7 HDL Cholesterol 44.4 mg/dL 8 LDL Cholesterol 140 mg/dL 9 Laboratory test 05/14/2017 [facility] Rapid Strep Negative Negative 10 finding 101 [facility] [place] [address] [phone] Comp Metabolic 03/28/2017 [facility] Sodium 139 mmol/L N 133- 145 Panel [address] [place] [address] [phone] Potassium 4.1 mmol/L N 3.5-5.0 Chloride 104 mmol/L N 101-111 Co2 Carbon Dioxide 29 mmol/L N 22-32 Anion Gap 6 mmol/L N 2-11 Glucose 89 mg/dL N 70-100 Blood Urea Nitrogen 15 mg/dL N 6-24 Creatinine 0.81 mg/dL N 0.51-0.95 BUN/Creatinine Ratio 18.5 N 8-20 Calcium 9.6 mg/dL N 8.6-10.3 Total Protein 6.8 g/dL N 6.4-8.9 Albumin 4.2 g/dL N 3.2-5.2 Globulin 2.6 g/dL N 2-4 Albumin/Globulin Ratio 1.6 N 1-3 Total Bilirubin 0.60 mg/dL N 0.2-1.0 Alkaline Phosphatase 53 U/L N 34-104 Alt 15 U/L N 7-52 Ast 18 U/L N 13-39 Egfr Non- 80.0 N >60 Egfr 102.9 N >60 11 Lipid Profile 03/28/2017 [facility] Triglycerides 154 mg/dL N 12 (Trig/Chol/HDL) [address] [place] [address] [phone] Cholesterol 254 mg/dL N 13 HDL Cholesterol 52.8 mg/dL N 14 LDL Cholesterol 170 mg/dL N 15 Laboratory test 03/17/2017 [facility] Cytology SEE RESULT BELOW 16 finding [address] [place] [address] [phone] HPV Rna Ww/Reflex Genotype Negative N Negative 17 Urine Culture And 11/01/2016 [facility] Urine Culture SEE RESULT [address] [place] [address] [phone] Ua Routine 11/01/2016 [facility] Ua Specific 1015 [place] Ua PH 5 Ua Color yellow Ua Appera cloudy Ua WBC positive Ua Protein normal Ua Glucose negative Ua Ketones normal Ua Bilirubin negative Ua Urobilinogen normal Ua Nitrite negative Ua Occult Blood trace Laboratory test 06/23/2016 [facility] Vitamin D 41.1 ng/mL N 30-[address] Total 25(Oh) [place] [address] [phone] Laboratory test 04/23/2016 [facility] TSH (Thyroid 3.03 N 0.34 -5.[address] Stim Horm) mcIU/[place] [address] [phone] Comp Metabolic 04/23/2016 [facility] Sodium 138 mmol/L N 133- [address] [place] [address] [phone] Potassium 4.1 mmol/L N 3.5-5.0 Chloride 104 mmol/L N 101-111 Co2 Carbon Dioxide 26 mmol/L N 22-32 Anion Gap 8 mmol/L N 2-11 Glucose 85 mg/dL N 70-100 Blood Urea Nitrogen 13 mg/dL N 6-24 Creatinine 0.71 mg/dL N 0.51-0.95 BUN/Creatinine Ratio 18.3 N 8-20 Calcium 9.3 mg/dL N 8.6-10.3 Total Protein 6.5 g/dL N 6.4-8.9 Albumin 4.0 g/dL N 3.2-5.2 Globulin 2.5 g/dL N 2-4 Albumin/Globulin Ratio 1.6 N 1-3 Total Bilirubin 0.50 mg/dL N 0.2-1.0 Alkaline Phosphatase 60 U/L N 34-104 Alt 73 U/L High 7-52 Ast 48 U/L High 13-39 Egfr Non- 93.7 N >60 Egfr 120.5 N >60 19 CBC Auto Diff 04/23/2016 [facility] White Blood 7.6 10^3/uL N 3.5-10.[address] [place] [address] [phone] Red Blood Count 4.45 10^6/uL N 4.0-5.4 Hemoglobin 13.1 g/dL N 12.0-16.0 Hematocrit 39 % N 35-47 Mean Corpuscular Volume 88 fL N 80-97 Mean Corpuscular Hemoglobin 30 pg N 27-31 Mean Corpuscular HGB Conc 34 g/dL N 31-36 Red Cell Distribution Width 13 % N 10.5-15 Platelet Count 227 10^3/uL N 150-450 Mean Platelet Volume 8 um3 N 7.4-10.4 Abs Neutrophils 3.6 10^3/uL N 1.5-7.7 Abs Lymphocytes 3.4 10^3/uL N 1.0-4.8 Abs Monocytes 0.4 10^3/uL N 0-0.8 Abs Eosinophils 0.1 10^3/uL N 0-0.6 Abs Basophils 0 10^3/uL N 0-0.2 Abs Nucleated RBC 0 10^3/uL N Granulocyte % 47.3 % N 38-83 Lymphocyte % 45.1 % N 25-47 Monocyte % 5.8 % N 1-9 Eosinophil % 1.3 % N 0-6 Basophil % 0.5 % N 0-2 Nucleated Red Blood Cells % 0 N Laboratory test 04/23/2016 [facility] Ferritin 24.2 ng/mL N 11 -307 finding [address] [place] [address] [phone] Vitamin D Total 25(Oh) 18.4 ng/mL Low 30-50 Vitamin B12 467 pg/mL N 180-914 20 Lipid Profile 03/08/2016 [facility] Triglycerides 252 mg/dL N 21 (Trig/Chol/HDL) [address] [place] [address] [phone] Cholesterol 239 mg/dL N 22 HDL Cholesterol 58.2 mg/dL N 23 LDL Cholesterol 130 mg/dL N 24 Laboratory test 03/08/2016 [facility] Glucose 85 mg/dL N 70- 100 finding [address] [place] [address] [phone] Lipid Profile 01/30/2015 [facility] Triglycerides 359 mg/dL N 25 (Trig/Chol/HDL) [address] [place], [place] [id number] [phone] Cholesterol 275 mg/dL N 26 HDL Cholesterol 56.9 mg/dL N 27 LDL Cholesterol 146 mg/dL N 28 Laboratory test 01/30/2015 [facility] Glucose 87 mg/dL N 70- 100 [address] [place] [address] [phone] Throat-Beta 05/21/2014 [facility] Throat Beta Strep (SEE [address] Culture NOTE) [place] [address] [phone] Laboratory test 02/15/2014 [facility] Cytology RUN DATE: [address] 02/18/ [place] [address] <SEE [phone] NOTE> Lipid Profile 02/12/2014 [facility] Triglycerides 356 mg/dL N 32, 33 (Trig/Chol/HDL) [address] [place] [address] [phone] Cholesterol 257 mg/dL N 34 HDL Cholesterol 51.9 mg/dL N 35 LDL Cholesterol 134 mg/dL N 36 Comp Metabolic Panel 02/12/2014 [facility] Sodium 138 mmol/L N 133-[address] [place] [address] [phone] Potassium 3.8 mmol/L N 3.7-5.6 Chloride 104 mmol/L N 101-111 Co2 Carbon Dioxide 28 mmol/L N 22-32 Anion Gap 6 mmol/L N 2-11 Glucose 84 mg/dL N 70-100 Blood Urea Nitrogen 10 mg/dL N 6-24 Creatinine 0.86 mg/dL N 0.51-0.95 BUN/Creatinine Ratio 11.6 N 8-20 Calcium 9.3 mg/dL N 8.6-10.3 Total Protein 6.8 g/dL N 6.4-8.9 Albumin 4.2 g/dL N 3.2-5.2 Globulin 2.6 g/dL N 2-4 Albumin/Globulin Ratio 1.6 N 1-3 Total Bilirubin 0.40 mg/dL N 0.2-1.0 Alkaline Phosphatase 45 U/L N 34-104 Alt 11 U/L N 7-52 Ast 15 U/L N 13-39 Egfr Non- 76.0 N >60 Egfr 97.7 N >60 37 Laboratory test finding 08/03/2013 [facility] Amylase 35 U/L 29-[address] [place] [address] [phone] D Dimer Quantitative < 200 ng/mL Less Than 230 38 Throat-Beta 04/26/2013 [facility] Throat Beta Strep (SEE 39 Strept [address] [facility] Culture NOTE) [place] [address] [phone] Lipid Profile 02/20/2013 [facility] Triglycerides 240 mg/dL High 40-2 (Trig/Chol/HDL) [address] [place] [address] [phone] Cholesterol 275 mg/dL High Less than 200 HDL Cholesterol 65 mg/dL High 40-60 40 Cholesterol/HDL Ratio 4.2 Average 1-4.44 LDL Cholesterol 162.0 High Less Than 100 41 Laboratory test 02/20/2013 [facility] [facility] Glucose 79 mg/dL 70- 100 42 finding 101 [place] [address] [phone] Ua Routine 12/22/2012 Condition[facility] Tender In House Ua Specific 1.010 [place]vonia Ua PH 5 Ua Color bright orange Ua Appera clear Ua WBC trace Ua Protein 300+ Ua Glucose neg Ua Ketones neg Ua Bilirubin small Ua Urobilinogen neg Ua Nitrite neg Ua Occult Blood neg Laboratory test 08/25/2011 [facility] Cytology <SEE 43 finding 101 [facility] NOTE> [place] [address] [phone] GC/Chlamydia 08/25/2011 [facility] M <SEE [address] [place] [address] NOTE> [place] [address] [phone] 1 Because ethnic data is not always readily available, this report includes an eGFR for both -Americans and non- Americans. The National Kidney Disease Education Program (NKDEP) does not endorse the use of the MDRD equation for patients that are not between the ages of 18 and 70, are , have extremes of body size, muscle mass, or nutritional status, or are non- or non-. According to the National Kidney Foundation, irrespective of diagnosis, the stage of the disease is based on the level of kidney function: Stage Description GFR(mL/min/1.73 m(2)) 1 Kidney damage with normal or decreased GFR 90 2 Kidney damage with mild decrease in GFR 60-89 3 Moderate decrease in GFR 30-59 4 Severe decrease in GFR 15-29 5 Kidney failure <15 (or dialysis) 2 <5.0 Negative 5.0 - 25.0 Indeterminate (Repeat testing recommended after 72 hours) >25.0 Positive Perimenopausal women can display HCG levels of up to 20 mIU/mL 3 [facility] Severe Sepsis and Septic Shock Management Bundle Measure requires all lactic acids initially measuring >2.0 mmol/L be repeated. 4 Because ethnic data is not always readily available, this report includes an eGFR for both -Americans and non- Americans. The National Kidney Disease Education Program (NKDEP) does not endorse the use of the MDRD equation for patients that are not between the ages of 18 and 70, are , have extremes of body size, muscle mass, or nutritional status, or are non- or non-. According to the National Kidney Foundation, irrespective of diagnosis, the stage of the disease is based on the level of kidney function: Stage Description GFR(mL/min/1.73 m(2)) 1 Kidney damage with normal or decreased GFR 90 2 Kidney damage with mild decrease in GFR 60-89 3 Moderate decrease in GFR 30-59 4 Severe decrease in GFR 15-29 5 Kidney failure <15 (or dialysis) 5 Because ethnic data is not always readily available, this report includes an eGFR for both -Americans and non- Americans. The National Kidney Disease Education Program (NKDEP) does not endorse the use of the MDRD equation for patients that are not between the ages of 18 and 70, are , have extremes of body size, muscle mass, or nutritional status, or are non- or non-. According to the National Kidney Foundation, irrespective of diagnosis, the stage of the disease is based on the level of kidney function: Stage Description GFR(mL/min/1.73 m(2)) 1 Kidney damage with normal or decreased GFR 90 2 Kidney damage with mild decrease in GFR 60-89 3 Moderate decrease in GFR 30-59 4 Severe decrease in GFR 15-29 5 Kidney failure <15 (or dialysis) 6 Desirable: <150 Borderline High: 150-199 High: 200-499 Very High: >500 7 Desirable: <200 Borderline High: 200-239 High: >239 8 Low: <40 Desirable: 40-60 High: >60 9 Desirable: <100 Near Optimal: 100-129 Borderline High: 130-159 High: 160-189 Very High: >189 10 Fur Cleaner: [id number] 11 Because ethnic data is not always readily available, this report includes an eGFR for both -Americans and non- Americans. The National Kidney Disease Education Program (NKDEP) does not endorse the use of the MDRD equation for patients that are not between the ages of 18 and 70, are , have extremes of body size, muscle mass, or nutritional status, or are non- or non-. According to the National Kidney Foundation, irrespective of diagnosis, the stage of the disease is based on the level of kidney function: Stage Description GFR(mL/min/1.73 m(2)) 1 Kidney damage with normal or decreased GFR 90 2 Kidney damage with mild decrease in GFR 60-89 3 Moderate decrease in GFR 30-59 4 Severe decrease in GFR 15-29 5 Kidney failure <15 (or dialysis) 12 Desirable: <150 Borderline High: 150-199 High: 200-499 Very High: >500 13 Desirable: <200 Borderline High: 200-239 High: >239 14 Low: <40 Desirable: 40-60 High: >60 15 Desirable: <100 Near Optimal: 100-129 Borderline High: 130-159 High: 160-189 Very High: >189 16 SEE RESULT BELOW Name: THERESA MARIE : [address]: Lucero Escalante NP Acct: [id number] Unit: [id number] AGE: 36 Location: [facility] Re03/17/17 SEX: F Status: REG REF SPEC: [id number] URSZULA: 03/17/17-[address] [facility] [address]: Lucero Escalante THERAPEUTIC RADIOLOGIST REQ: [id number] RECD: 03/18/17 STATUS: SOUT _ ORDERED: TP IMAGE ANAL, HPV/Thin Prep, HPV 16/18 GENE COMMENTS: [id number] FINAL DIAGNOSIS Negative for Intraepithelial lesion or Malignancy A. Ectocervical/Endocervical Specimen Adequacy: Satisfactory of evaluation Transformation zone component identified Patient Information: HPV: High risk HPV RNA testing regardless of pap results. HPV 16/18 Genotype Reflex Actual Specimen Date: 03/17/17 Last Menstrual Date: 03/14/17 Spec Date if unknown: 2013 ?: N Post Menopausal?: N Hysterectomy?: N Previous Abnormal Pap Smears?:N Date Time Test Result Flag (u) Normal Range 03/17/17 1018 HPV RNA RFLX GE Negative Negative The high-risk HPV types detected by the assay include: 16, 18, 31, 33, 35, 39, 45, 51, 52, 56, 58, 59, 66, and 68. Signed (signature on file) TRUNG Hutton (ASCP) 03/21 1314 This Pap test was evaluated with the assistance of the StartersFundPrep Test Imaging System. Due to cytologic findings at the laser engraver microscope, comprehensive manual rescreening by a Flying I Instructor may be required. The Pap Smear is a screening test designed to aid in the detection of premalignant and malignant conditions of the uterine cervix. It is not a diagnostic procedure and should not be used as the sole means of detecting cervical cancer. Both false- positive and false- negative reports do occur. Depending on your risk status, a Pap smear should be obtained and evaluated every 1-3 years. END OF REPORT * ML=Testing performed at Main Lab DEPARTMENT OF PATHOLOGY, [address] [place] [address] RUN DATE: 03/21/17 [facility] LAB LIVE PAGE 1 Patient: THERESA MARIE [id number] (Continued) Reece Padilla M.D. Director [facility] # [id number] The high-risk HPV types detected by the assay include: 16, 18, 31, 33, 35, 39, 45, 51, 52, 56, 58, 59, 66, and 68. 18 SEE RESULT BELOW Name: THERESA MARIE : [address]: Lucero Escalante NP Acct: [id number] Unit: [id number] AGE: 36 Location: [facility] Re11/01/16 SEX: F Status: REG REF SPEC: [id number] URSZULA: 11/01/16-[address] [facility] [address]: Lucero Escalante NP REQ: [id number] RECD: 11/01/16 STATUS: COMP _ SOURCE: URINE SPDESC: ORDERED: Urine Culture COMMENTS: [id number] Urine Source: Random Procedure Result Reported Site Urine Culture Final 11/03/16- 722 ML Organism 1 ESCHERICHIA COLI Minerva Count 50-75,000 (Many) CFU/ML 1. ESCHERICHIA COLI M.I.C. RX --------- ------ Ampicillin <=2 S Cefazolin <=4 S Cefepime <=1 S Ceftriaxone <=1 S Ciprofloxacin <=0.25 S Gentamicin <=1 S Levofloxacin <=0.12 S Meropenem <=0.25 S Nitrofurantoin <=16 S Tetracycline <=1 S Pipercillin/Tazobactam <=4 S Trimethoprim/Sulfamethoxazole <=20 S Amoxicillin/Clavulanic Acid <=2 S Aztreonam <=1 S Contact the Microbiology Department for any additional antibiotic reporting. * ML - MAIN LAB ([facility]) . END OF REPORT * ML=Testing performed at Main Lab DEPARTMENT OF PATHOLOGY, [address] [place] [address] Reece Padilla M.D. Director [facility] # [id number] 19 Because ethnic data is not always readily available, this report includes an eGFR for both -Americans and non- Americans. The National Kidney Disease Education Program (NKDEP) does not endorse the use of the MDRD equation for patients that are not between the ages of 18 and 70, are , have extremes of body size, muscle mass, or nutritional status, or are non- or non-. According to the National Kidney Foundation, irrespective of diagnosis, the stage of the disease is based on the level of kidney function: Stage Description GFR(mL/min/1.73 m(2)) 1 Kidney damage with normal or decreased GFR 90 2 Kidney damage with mild decrease in GFR 60-89 3 Moderate decrease in GFR 30-59 4 Severe decrease in GFR 15-29 5 Kidney failure <15 (or dialysis) 20 Normal Range 180 to 914 Indeterminate Range 145 to 180 Deficient Range <145 21 Desirable <150 Borderline high 150-199 High 200-499 Very High >500 22 Desirable <200 Borderline high 200-239 High >239 23 Low <40 Desirable: 40-60 High: >60 24 Desirable: <100 mg/dL Near Optimal: 100-129 mg/dL Borderline High: 130-159 mg/dL High: 160-189 mg/dL Very High: >189 mg/dL 25 Desirable <150 Borderline high 150-199 High 200-499 Very High >500 26 Desirable <200 Borderline high 200-239 High >239 27 Low <40 Desirable: 40-60 High: >60 28 Desirable: <100 mg/dL Near Optimal: 100-129 mg/dL Borderline High: 130-159 mg/dL High: 160-189 mg/dL Very High: >189 mg/dL 29 FASTING 10 HOUR 30 RUN DATE: 05/24/14 [facility] LAB LIVE PAGE 1 RUN TIME: [address] [place] [address] Specimen Inquiry Name: FRANKTHERESA : [address]: Arthur Moore MD Acct: [id number] Unit: [id number] AGE: 34 Location: [facility] Re05/21/14 SEX: F Status: DEP ER SPEC: [id number] URSZULA: 05/21/[address] [facility] [address]: Arthur Moore MD REQ: [id number] RECD: 05/22/14 STATUS: ANGEL ELIZAB[facility] DR: Lucero Escalante THERAPEUTIC RADIOLOGIST _ SOURCE: THROAT SPDESC: ORDERED: Throat Beta Str Procedure Result Verified Site Throat Beta Strep Culture Final 05/24/14842 ML Negative For Group A Beta Streptococcus END OF REPORT * ML=Testing performed at Main Lab DEPARTMENT OF PATHOLOGY, [address] [place] [address] Reece Padilla M.D. Director [facility] # [id number] RUN DATE: 02/18/14 [facility] LAB LIVE PAGE 1 RUN TIME: 0542 007 [place], [place] [address] Specimen Inquiry Name: THERESA MARIE : [address]: Lucero Escalante NP Acct: [id number] Unit: [id number] AGE: 33 Location: [facility] Re02/15/14 SEX: F Status: REG REF SPEC: [id number] URSZULA: 02/15/14-[address] [facility] [address]: Lucero Escalante NP REQ: [id number] RECD: 02/17/14-3051 STATUS: SOUT _ ORDERED: IMAGE ANALYSIS FINAL DIAGNOSIS Negative for Intraepithelial lesion or Malignancy A. Ectocervical/Endocervical Specimen Adequacy: Satisfactory of evaluation Transformation zone component identified Patient Information: HPV: Thin Layer Pap Test w/reflex to high risk HPV DNA testing when ASCUS Actual Specimen Date: 02/15/14 Last Menstrual Date: 01/30/14 ?: N Post Menopausal?: N Hysterectomy?: N Previous Abnormal Pap Smears?:Y If Yes, enter Diagnosis: had abnormal pap in past, have been normal since. Signed (signature on file) TRUNG Hutton (ASCP) 02/18 1458 This Pap test was evaluated with the assistance of the Pogoappp Test Imaging System. Due to cytologic findings at the laser engraver microscope, comprehensive manual rescreening by a Flying I Instructor may be required. The Pap Smear is a screening test designed to aid in the detection of premalignant and malignant conditions of the uterine cervix. It is not a diagnostic procedure and should not be used as the sole means of detecting cervical cancer. Both false- positive and false- negative reports do occur. Depending on your risk status, a Pap smear shoudl be obtained and evaluated every 1-3 years. END OF REPORT * ML=Testing performed at Main Lab DEPARTMENT OF PATHOLOGY, [address] [place] [address] Reece Padilla M.D. Director [facility] # [id number] 32 FASTING 33 Desirable <150 Borderline high 150-199 High 200-499 Very High >500 34 Desirable <200 Borderline high 200-239 High >239 35 Low <40 Desirable: 40-60 High: >60 36 Desirable <100 Near Optimal 100-129 Borderline high 130-159 High 160-189 Very High >189 37 Because ethnic data is not always readily available, this report includes an eGFR for both -Americans and non- Americans. The National Kidney Disease Education Program (NKDEP) does not endorse the use of the MDRD equation for patients that are not between the ages of 18 and 70, are , have extremes of body size, muscle mass, or nutritional status, or are non- or non-. According to the National Kidney Foundation, irrespective of diagnosis, the stage of the disease is based on the level of kidney function: Stage Description GFR(mL/min/1.73 m(2)) 1 Kidney damage with normal or decreased GFR 90 2 Kidney damage with mild decrease in GFR 60-89 3 Moderate decrease in GFR 30-59 4 Severe decrease in GFR 15-29 5 Kidney failure <15 (or dialysis) 38 Please note: The following may produce a false positive D Dimer test: - Rheumatoid factor greater than 60 IU/ml - Plasma hemoglobin greater than 0.05 gm/dl - Bilirubin greater than 50 mg/dl - Lipids greater than 1000 mg/dl - FDP greater than 20 ug/ml 39 RUN DATE: 04/28/13 [facility] LAB LIVE PAGE 1 RUN TIME: [address] [place] [address] Specimen Inquiry Name: THERESA MARIE : [address]: Arthur Moore MD Acct: [id number] Unit: [id number] AGE: 32 Location: [facility] Re04/26/13 SEX: F Status: DEP ER SPEC: [id number] URSZULA: 04/26/[address] [facility] [address]: Arthur Moore MD REQ: [id number] RECD: 04/26/136 STATUS: COMP FITOHR DR: Myrna Li MD _ SOURCE: THROAT SPDESC: ORDERED: Throat Beta Str Procedure Result Verified Site Throat Beta Strep Culture Final 04/28/13- 810 ML Negative For Group A Beta Streptococcus END OF REPORT * ML=Testing performed at Main Lab DEPARTMENT OF PATHOLOGY, [address] [place] [address] Reece Padilla M.D. Director [facility] Permit #[id number] HDL Interpretation: Undesirable: High Risk: Less than 40 mg/dL Desirable: Low Risk: Greater than 60 mg/dL 41 LDL Interpretation: Low Risk Optimal Level: LDL Less than 100 mg/dL Near or Above Optimal: LDL 100-129 mg/dL Borderline High Risk: LDL 130-159 mg/dL High Risk: LDL 160-189 mg/dL Very High Risk: LDL Greater than 189 mg/dL 42 FASTING 10 HOUR 43 ---- RUN DATE: 08/26/11 [facility] NMI LIVE PAGE 1 RUN TIME: 1331 Specimen Inquiry RUN USER: INTERFACE -- Name: THERESA MARIE Status: REG REF Re08/25/11 Age/Sex: 31/F Unit#: [id number] Location: [facility] : [birth year] -- Specimen: [id number] SOUT Spec Date:08/25/11-[address]: Myrna Ryan Spec Type: CYTOLOGY Received:08/26/114400 Copies to: SOURCE ECTOCERVICAL/ENDOCERVICAL Thin Prep with Reflex HPV Test PATIENT INFORMATION ACTUAL COLLECTION DATE: 08/25/11 ? No POST MENOPAUSAL? No HYSTERECTOMY? No PREVIOUS ABNORMAL PAP SMEARS Yes If YES, diagnosis: Pt unsre, a few yrs ago, Normal since LAST MENSTRUAL PERIOD: 08/18/11 ADEQUACY OF SPECIMEN Satisfactory for evaluation * Transformation zone component identified * DIAGNOSIS NEGATIVE FOR INTRAEPITHELIAL LESION OR MALIGNANCY * This Pap test was evaluated with the assistance of the ThinPrep Pap Test Imaging System. The Pap Smear is a screening test designed to aid in the detection of premalign ant and malignant conditions of the uterine cervix. It is not a diagnostic procedure a nd should not be used as the sole means of detecting cervical cancer. Both false- positiv e and false-negative reports do occur. Depending on your risk status, a Pap smear gary uld be obtained and evaluated every one to three years. Final Interpretation electronically signed by: Connor VILLAR([facility]) 08/26/11 133 1 -- -- DEPARTMENT OF PATHOLOGY, [address] [place] [address] [facility] Permit #[id number] Ramírez Ovalles M.D. Assistant Dir ector -- 44 RUN DATE: 08/27/11 [facility] NMI LIVE PAGE 1 RUN TIME: 1358 Specimen Inquiry RUN USER: INTERFACE Name: THERESA MARIE Status: REG REF Re08/25/11 Age/Sex: 31/F Unit#: [id number] Location: [facility] : 80 SPEC #: [id number] URSZULA: 08/25/11 STATUS: COMP REQ #: [id number] RECD: 08/25/[address]: Myrna Li MD SOURCE: ENDOCERVIX ENTR: 08/25/[address]: JOAN: ORDERED: GC/CHL APTIMA QUERIES: MEDENT REQUISITION # [id number] ACT WKST: GCCHL 08/27/11 #1 Procedure Result Verified Site > CHLAMYDIA TRACHOMATIS RNA Final 08/27/11- 1357 ML NEGATIVE FOR CHLAMYDIA TRACHOMATIS rRNA A negative result does not preclude the presence of a C.trachomatis or N.gonorrhoeae infection because results are dependent on adequate specimen collection, absence of inhibitors, and sufficient rRNA to be detected. Test results may be affected by improper specimen collection, improper specimen storage, technical error, or specimen mixup. Limitations of the Procedure: The Aptima Combo 2 Assay is not intended for the evaluation of suspected sexual abuse or for other medico-legal indications. For those patients for whom a false positive result may have adverse psychosocial impact, the CDC recommends retesting by a method using an alternate technology. Therapeutic failure or success cannot be determined with the Aptima Combo 2 Assay since nucleic acid may persist following appropriate antimicrobial therapy. Results from the APTIMA Combo 2 Assay should be interpreted in conjunction with other laboraotry and clinical data available to the clinician. Performance characteristics for detecting C. trachomatis and N. gonorrhoeae are derived from high prevalence populations. Positive results in low prevalence populations should be interpreted carefully with the understanding that the likelihood of a false positive may be higher than a true positive. DEPARTMENT OF PATHOLOGY, [address] [place] [address] [facility] Permit #[id number] Reece Padilla M.D. Director Juancarlos Hartmann M.D. Manager Inpatient RUN DATE: 08/27/11 [facility] NMI LIVE PAGE 2 RUN TIME: 1358 Specimen Inquiry RUN USER: INTERFACE Name: THERESA MARIE Deepti Status: REG REF Re08/25/11 Age/Sex: 31/F Unit#: [id number] Location: [facility] : [birth year] -- -- CONTINU ED Procedure Result Verified Site > GC (N. GONORRHOEAE) RNA Final 08/27/11- 1357 ML NEGATIVE FOR NEISSERIA GONORRHOEAE rRNA A negative result does not preclude the presence of a C.trachomatis or N.gonorrhoeae infection because results are dependent on adequate specimen collection, absence of inhibitors, and sufficient rRNA to be detected. Test results may be affected by improper specimen collection, improper specimen storage, technical error, or specimen mixup. Limitations of the Procedure: The Aptima Combo 2 Assay is not intended for the evaluation of suspected sexual abuse or for other medico-legal indications. For those patients for whom a false positive result may have adverse psychosocial impact, the CDC recommends retesting by a method using an alternate technology. Therapeutic failure or success cannot be determined with the Aptima Combo 2 Assay since nucleic acid may persist following appropriate antimicrobial therapy. Results from the APTIMA Combo 2 Assay should be interpreted in conjunction with other laboraotry and clinical data available to the clinician. Performance characteristics for detecting C. trachomatis and N. gonorrhoeae are derived from high prevalence populations. Positive results in low prevalence populations should be interpreted carefully with the understanding that the likelihood of a false positive may be higher than a true positive. - [facility] Permit #[id number] [address] [place] [address] DEPARTMENT OF PATHOLOGY, [address] [place] [address] [facility] Permit #[id number] Reece Padilla M.D. Director Juancarlos Hartmann M.D. Manager Inpatient Procedures Date Code Description Status 04/27/2016 [id number] Mammogram Completed Encounters Type Date Location Provider Dx Diagnosis Office Visit 11/13/2018 Flavia Escalante, R14.0 Abdominal 3:40p Medicine - [facility] N.P. distension (gaseous) Office Visit 09/12/2018 [facility] Corky Escalante, R11.2 Nausea with 4:00p Medicine - [facility] N.P. vomiting, unspecified Office Visit 06/15/2018 [facility] Internal Lucero Escalante, L03.032 Cellulitis of left 11:00a Medicine - [facility] N.P. toe Office Visit 05/19/2018 DoNotUse Flavia Escalante, L60.0 Ingrowing nail 10:20a Internal N.P. Medicine-Arrowwo od Office Visit 03/21/2018 [facility] Internal Lucero Escalante, Z00.00 Encntr for general 9:20a Medicine - Ccmob N.P. adult medical exam w/o abnormal findings E78.00 Pure hypercholesterolemia, unspecified Z23 Encounter for immunization Office Visit 10/31/2017 11:40a [facility] Internal Lucero Escalante, J01.90 Acute sinusitis, Medicine - N.P. unspecified Ccmob Office Visit 08/15/2017 2:40p [facility] Internal Jigar Martinez, THERAPEUTIC RADIOLOGIST H81.10 Benign paroxysmal Medicine - vertigo, [facility]ob unspecified ear Office Visit 05/25/2017 1:40p Leticia [facility] Azucena Grady, J01.90 Acute sinusitis, Internal M.D. unspecified Medicine-Arroww ood Office Visit 03/17/2017 9:00a [facility] Internal Lucero Escalante, Z00.01 Encounter for Medicine - N.P. general adult Ccmob medical exam w abnormal findings E78.00 Pure hypercholesterolemia, unspecified J30.9 Allergic rhinitis, unspecified Z11.51 Encounter for screening for human papillomavirus (HPV) Z23 Encounter for immunization Z00.00 Encntr for general adult medical exam w/o abnormal findings Office Visit 11/01/2016 10:20a [facility] Internal Lucero Escalante, N39.0 Urinary tract Medicine - N.P. infection, site Ccmob not specified Office Visit 05/19/2016 3:20p [facility] Internal Lucero Escalante, J01.00 Acute maxillary Medicine - N.P. sinusitis, Ccmob unspecified Office Visit 04/23/2016 9:40a [facility] Internal Lucero Escalante, R53.81 Other malaise Medicine - N.P. Ccmob Office Visit 03/15/2016 1:40p [facility] Internal Lucero Escalante, Z00.01 Encounter for Medicine - N.P. general adult Ccmob medical exam w abnormal findings Z12.31 Encntr screen mammogram for malignant neoplasm of breast E78.00 Pure hypercholesterolemia, unspecified J30.9 Allergic rhinitis, unspecified Z23 Encounter for immunization Office Visit 10/21/2015 [facility] Internal Dulce H10.9 Unspecified 11:20a Isai Cm M.D. conjunctivitis Ccmob Office Visit 10/14/2015 [facility] Internal Lucero Escalante, J06.9 Acute upper 9:40a Medicine - N.P. respiratory Ccmob infection, unspecified Office Visit 04/11/2015 [facility] Internal Lucero Escalante, J01.00 Acute maxillary 1:20p Medicine - N.P. sinusitis, Ccmob unspecified Office Visit 02/25/2015 [facility] Internal Lucero Escalante, R21 Rash and other 11:40a Medicine - N.P. nonspecific skin Ccmob eruption Office Visit 02/17/2015 [facility] Internal Lucero Escalante, J01.00 Acute maxillary 2:20p Medicine - N.P. sinusitis, Ccmob unspecified Office Visit 02/06/2015 [facility] Internal Gerardo Gaviria, V70.0 Examination General 10:00a Medicine - THERAPEUTIC RADIOLOGIST Medical Routine AT [facility] V72.31 Routine Vice President Fixed Income Examination 272.2 Hyperlipidemia Mixed 706.1 Acne Other V25.09 Contraceptive Management Other V04.81 Need For Prophylactic Vaccination & Inoculation/Influenza 305.1 Tobacco Use Disorder Office Visit 06/18/2014 4:20p [facility] Internal Lucero Escalante, 461.9 Sinusitis Acute Medicine - N.P. Unspec Ccmob Office Visit 04/24/2014 9:30a [facility] Internal Jigar Martinez NP 465.9 URI Upper Medicine - Respiratory Ccmob Infections Acute Unspec Sites Office Visit 02/15/2014 10:40a [facility] Internal Lucero Escalante, V70.0 Examination Medicine - N.P. General [facility] Routine [facility] V72.31 Routine Vice President Fixed Income Examination 305.1 Tobacco Use Disorder V04.81 Need For Prophylactic Vaccination & Inoculation/Influenza 272.4 Hyperlipidemia Other Unspec 706.1 Acne Other Office Visit 08/03/2013 9:40a [facility] Internal Lucero Escalante, 789.01 Pain Abdominal Medicine - N.P. Right Upper [facility] Quadrant Office Visit 06/28/2013 11:20a [facility] Internal Lucero Escalante, 465.9 URI Upper Medicine - N.P. Respiratory [facility] Infections Acute Unspec Sites Office Visit 02/14/2013 2:00p [facility] Internal Myrna Li, 305.1 Tobacco Use Medicine - M.D. Disorder [facility] 477.9 Rhinitis Allergic Cause Unspec V70.0 Examination General Medical Routine AT [facility] V25.09 Contraceptive Management Other Office Visit 12/22/2012 2:20p [facility] Internal Myrna Li, 789.01 Pain Abdominal Medicine - [facility] M.D. Right Upper Quadrant 305.1 Tobacco Use Disorder 733.6 Tietzes Disease 787.03 Vomiting Alone Office Visit 07/28/2012 1:20p [facility] Internal Lucero Escalante, 787.03 Vomiting Alone Medicine - [facility] N.P. Office Visit 07/07/2012 11:20a [facility] Internal Myrna Li, 305.1 Tobacco Use Medicine - [facility] M.D. Disorder 473.8 Sinusitis Chronic Other Office Visit 03/28/2012 10:40a [facility] Internal Lucero Escalante, 461.9 Sinusitis Acute Medicine - [facility] N.P. Unspec Office Visit 01/07/2012 2:00p [facility] Internal Myrna Li, 305.1 Tobacco Use Medicine - [facility] M.D. Disorder V25.09 Contraceptive Management Other Office Visit 11/03/2011 11:20a [facility] Internal Lucero Escalante, 733.6 Tietzes Disease Medicine - N.P. [facility] Office Visit 08/25/2011 10:00a [facility] Internal Myrna Li, V72.31 Routine Vice President Fixed Income Medicine - M.D. Examination [facility] V76.2 Screening Malignant Neoplasm Cervix 305.1 Tobacco Use Disorder Plan of Treatment Future Appointment(s):12/14/2018 10:15 am - Arlene Marie NP at [facility] Enoiatmxhvtuqdqz57/31/2019 10:00 am - Lucero Escalante, N.P. at [facility] Internal Medicine - [facility]11/29/2018 - [place]ero Escalante, N.P.R10.31 Right lower quadrant painNew Xrays:CT Abd/Pel W, Ordered: 11/29/18
--- OUTSIDE RECORDS SUMMARY | 2018-11-30 13:08 | XMS REPORT | Continuity of Care Document ---
:1980 External Reference #:[id number] Author Name Lucinda Mccurdy Care Team Providers Name Role Phone Dulce Cm MD Primary Care Physician Unavailable Payers Date Identification Numbers Payment Provider Subscriber Effective: 2013 Policy Number: [id number] [employer] Theresa Marie PayID: [id number] [address] [address] [place] [address] Effective: 2010 Policy Number: [id number] [employer] Theresa Marie Expires: 2013 PayID: [id number] [address] [address] [place] [address] Problems Active Problems Provider Date Mixed hypercholesterolemia and Gerardo Gaviria NP Onset: 01/30/2015 hypertriglyceridemia Resolved Problems Tobacco user Myrna Li M.D. Onset: 08/25/2011 Resolved: 05/25/2017 Family History Date Family Member(s) Observation Comments Father DC (age 50's),Stents, HTN, Hyperlipidemia Age 66 Mother [...] 11/16/[address] day 1/2 hour ASSISTANT DIRECTOR OF SECURITY before breakfast Simethicone Extra one by mouth [...] by mouth 8caps Lucero Escalante, 04/26/2016 - 44939Amyo once weekly N.P. 06/25/2016 Capsules Tobramycin 2 [...] Code Status Date Vaccine Reaction Lot # [id number] Given 03/21/2018 Influenza Virus Vaccine, [id number] Quadrivalent, Split, Preservative Free 46413 Given 03/17/2017 Influenza Virus Vaccine, [id number] Quadrivalent, Split, Preservative Free 56141 Given 03/15/2016 Influ Virus Vaccine, no reaction noted ... [id number] Quadrivalent, Split Virus, [place] [address] Given 02/06/2015 Influenza Virus Vaccine, [id number] Quadrivalent, Split, Preservative Free 99313 Given 02/15/2014 Influenza Virus Vaccine, [id number] Quadrivalent, Split, Preservative Free 55207 Given 03/14/2013 Tdap - Tetanus/Diptheria/Acellular Pertussis 40355 Given 03/14/2013 Tdap - [id number] Tetanus/Diptheria/Acellular Pertussis 87077 Given 03/14/2013 Flu Vaccine Split Virus [id number] Preservative Free For Indiv 3Yr Older Vital [...] Result H/L Range Note Basic Metabolic 09/12/2018 [facility] Sodium 140 mmol/L N 135- [address] [place] [address] [phone] Potassium 3.9 mmol/L N 3.5-5.0 Chloride 107 mmol/L N 101-111 Co2 Carbon Dioxide 27 mmol/L N 22-32 Anion Gap 6 mmol/L N 2-11 Glucose 81 mg/dL N 70-100 Blood Urea Nitrogen 12 mg/dL N 6-24 Creatinine 0.75 mg/dL N 0.51-0.95 BUN/Creatinine Ratio 16.0 N 8-20 Calcium 9.1 mg/dL N 8.6-10.3 Egfr Non- 86.5 >60 Egfr 104.6 >60 1 Laboratory test 09/07/2018 [facility] Magnesium 1.9 mg/dL N 1.9-2.7 finding [address] [place] [address] [phone] Lipase < 10 U/L Low 11.0-82.0 C Reactive Protein 48.86 mg/L High <8.01 HCG < 0.60 mIU/mL 2 Lactic Acid 2.0 mmol/L N 0.5-2.0 3 Urinalysis Profile 09/07/2018 [facility] Urine Color Yellow [address] [place] [address] [phone] Urine Appearance Clear Urine Specific [place] 1.021 N 1.010-1.030 Urine pH 8.0 N 5-9 Urine Urobilinogen Negative Negative Urine Ketones 1+ Abnormal Negative Urine Protein Negative Negative Urine Leukocytes Negative Negative Urine Blood Negative Negative Urine Nitrite Negative Negative Urine Bilirubin Negative Negative Urine Glucose Negative Negative Comp Metabolic Panel 09/07/2018 [facility] Sodium 138 mmol/L N 135-145 [address] [place] [address] [phone] Potassium 2.8 mmol/L Low 3.5-5.0 Chloride 103 [...] 104.6 >60 4 CBC Auto Diff 09/07/2018 [facility] White Blood 9.3 10^3/uL N 3.5-10.[address] [place] [address] [phone] Red Blood Count 4.35 10^6/uL N 3.70-4.87 [...] Cells % 0.1 Comp Metabolic Panel 03/09/2018 [facility] Sodium 139 mmol/L N 135-[address] [place] [address] [phone] Potassium 4.0 mmol/L N 3.5-5.0 Chloride 106 [...] Egfr 100.6 >60 5 Lipid Profile 03/09/2018 [facility] Triglycerides 233 mg/dL 6 (Trig/Chol/HDL) [address] [place] [address] [phone] Cholesterol 231 mg/dL 7 HDL Cholesterol 44.4 mg/dL 8 LDL Cholesterol 140 mg/dL 9 Laboratory test 05/14/2017 [facility] Rapid Strep Negative Negative 10 finding 101 [facility] [place] [address] [phone] Comp Metabolic 03/28/2017 [facility] Sodium 139 mmol/L N 133- 145 Panel [address] [place] [address] [phone] Potassium 4.1 mmol/L N 3.5-5.0 Chloride 104 [...] 102.9 N >60 11 Lipid Profile 03/28/2017 [facility] Triglycerides 154 mg/dL N 12 (Trig/Chol/HDL) [address] [place] [address] [phone] Cholesterol 254 mg/dL N 13 HDL Cholesterol 52.8 mg/dL N 14 LDL Cholesterol 170 mg/dL N 15 Laboratory test 03/17/2017 [facility] Cytology SEE RESULT BELOW 16 finding [address] [place] [address] [phone] HPV Rna Ww/Reflex Genotype Negative N Negative 17 Urine Culture And 11/01/2016 [facility] Urine Culture SEE RESULT [address] [place] [address] [phone] Ua Routine 11/01/2016 Public Address System Installer In House Ua Specific 101[address] [place] Ua PH 5 Ua Color yellow Ua Appera cloudy Ua WBC positive Ua Protein normal Ua Glucose negative Ua Ketones normal Ua Bilirubin negative Ua Urobilinogen normal Ua Nitrite negative Ua Occult Blood trace Laboratory test 06/23/2016 [facility] Vitamin D 41.1 ng/mL N 30-[address] Total 25(Oh) [place] [address] [phone] Laboratory test 04/23/2016 [facility] TSH (Thyroid 3.03 N 0.34 -5.[address] Stim Horm) mcIU/[place] [address] [phone] Comp Metabolic 04/23/2016 [facility] Sodium 138 mmol/L N 133- [address] [place] [address] [phone] Potassium 4.1 mmol/L N 3.5-5.0 Chloride 104 [...] N >60 19 CBC Auto Diff 04/23/2016 [facility] White Blood 7.6 10^3/uL N 3.5-10.[address] [place] [address] [phone] Red Blood Count 4.45 10^6/uL N 4.0-5.4 [...] Cells % 0 N Laboratory test 04/23/2016 [facility] Ferritin 24.2 ng/mL N 11 -307 finding [address] [place] [address] [phone] Vitamin D Total 25(Oh) 18.4 ng/mL Low 30-50 Vitamin B12 467 pg/mL N 180-914 20 Lipid Profile 03/08/2016 [facility] Triglycerides 252 mg/dL N 21 (Trig/Chol/HDL) [address] [place] [address] [phone] Cholesterol 239 mg/dL N 22 HDL Cholesterol 58.2 mg/dL N 23 LDL Cholesterol 130 mg/dL N 24 Laboratory test 03/08/2016 [facility] Glucose 85 mg/dL N 70- 100 finding [address] [place] [address] [phone] Lipid Profile 01/30/2015 [facility] Triglycerides 359 mg/dL N 25 (Trig/Chol/HDL) [address] [place], [place] [address] [phone] Cholesterol 275 mg/dL N 26 HDL Cholesterol 56.9 mg/dL N 27 LDL Cholesterol 146 mg/dL N 28 Laboratory test 01/30/2015 [facility] Glucose 87 mg/dL N 70- 100 [address] [place] [address] [phone] Throat-Beta 05/21/2014 [facility] Throat Beta Strep (SEE [address] Culture NOTE) [place] [address] [phone] Laboratory test 02/15/2014 [facility] Cytology RUN DATE: [address] 02/18/ [place] [address] <SEE [phone] NOTE> Lipid Profile 02/12/2014 [facility] Triglycerides 356 mg/dL N 32, 33 (Trig/Chol/HDL) [address] [place] [address] [phone] Cholesterol 257 mg/dL N 34 HDL Cholesterol 51.9 mg/dL N 35 LDL Cholesterol 134 mg/dL N 36 Comp Metabolic Panel 02/12/2014 [facility] Sodium 138 mmol/L N 133-[address] [place] [address] [phone] Potassium 3.8 mmol/L N 3.7-5.6 Chloride 104 [...] N >60 37 Laboratory test finding 08/03/2013 [facility] Amylase 35 U/L 29-[address] [place] [address] [phone] D Dimer Quantitative < 200 ng/mL Less Than 230 38 Throat-Beta 04/26/2013 [facility] Throat Beta Strep (SEE 39 Strept 101 [facility] Culture NOTE) [place] [address] [phone] Lipid Profile 02/20/2013 [facility] Triglycerides 240 mg/dL High 40-2 (Trig/Chol/HDL) [address] [place] [address] [phone] Cholesterol 275 mg/dL High Less than 200 HDL Cholesterol 65 mg/dL High 40-60 40 Cholesterol/HDL Ratio 4.2 Average 1-4.44 LDL Cholesterol 162.0 High Less Than 100 41 Laboratory test 02/20/2013 [facility] Glucose 79 mg/dL 70- 100 42 finding [address] [place] [address] [phone] Ua Routine 12/22/2012 [employer] [facility] Install[facility] In House Ua Specific 1.010 [place] Ua PH 5 Ua Color bright orange Ua Appera clear Ua WBC trace Ua Protein 300+ Ua Glucose neg Ua Ketones neg Ua Bilirubin small Ua Urobilinogen neg Ua Nitrite neg Ua Occult Blood neg Laboratory test 08/25/2011 [facility] Cytology <SEE 43 finding 101 [facility] NOTE> [place] [address] [phone] GC/Chlamydia 08/25/2011 [facility] M <SEE [address] [place] [address] NOTE> [place] [address] [phone] 1 Because ethnic data is not always [...] levels of up to 20 mIU/mL 3 [facility] Severe Sepsis and Septic Shock Management Bundle [...] 130-159 High: 160-189 Very High: >189 10 Ophthalmic Photographer: [id number] 11 Because ethnic data is not always [...] [address]: Lucero Escalante NP Acct: [id number] Unit: [id number] AGE: 36 Location: [facility] Re03/17/17 SEX: F Status: REG REF SPEC: [id number] URSZULA: 03/17/17-101[address] [facility] [address]: Lucero Escalante ASSISTANT DIRECTOR OF SECURITY REQ: [id number] RECD: 03/18/17 STATUS: SOUT _ ORDERED: TP IMAGE ANAL, HPV/Thin Prep, HPV 16/18 GENE COMMENTS: [id number] FINAL DIAGNOSIS Negative for Intraepithelial lesion or [...] was evaluated with the assistance of the [employer] Test Imaging System. Due to cytologic findings at the customs investigator microscope, comprehensive manual rescreening by a Airport Security Screener may be required. The Pap Smear is [...] performed at Main Lab DEPARTMENT OF PATHOLOGY, [address] [place] [address] RUN DATE: 03/21/17 [facility] LAB LIVE PAGE 1 Patient: THERESA MARIE [id number] (Continued) Reece Padilla M.D. Director [facility] # [id number] 17 The high-risk HPV types detected by the assay include: 16, 18, 31, 33, 35, 39, 45, 51, 52, 56, 58, 59, 66, and 68. 18 SEE RESULT BELOW Name: THERESA MARIE : [address]: Lucero Escalante NP Acct: [id number] Unit: [id number] AGE: 36 Location: [facility] Re11/01/16 SEX: F Status: REG REF SPEC: [id number] URSZULA: 11/01/16-[address] [facility] [address]: Lucero Escalante NP REQ: [id number] RECD: 11/01/16 STATUS: COMP _ SOURCE: URINE SPDESC: ORDERED: Urine Culture COMMENTS: [id number] Urine Source: Random Procedure Result Reported Site Urine Culture Final 11/03/16- 722 ML Organism 1 ESCHERICHIA COLI [place] Count 50-75,000 (Many) CFU/ML 1. ESCHERICHIA COLI [...] antibiotic reporting. * ML - MAIN LAB ([facility]) . END OF REPORT * ML=Testing performed at Main Lab DEPARTMENT OF PATHOLOGY, [address] [place] [address] Reece Padilla M.D. Director [facility] # [id number] 19 Because ethnic data is not always [...] FASTING 10 HOUR 30 RUN DATE: 05/24/14 [facility] LAB LIVE PAGE 1 RUN TIME: [address] [place] [address] Specimen Inquiry Name: FRANKTHERESA : [address]: Arthur Moore MD Acct: [id number] Unit: [id number] AGE: 34 Location: [facility] Re05/21/14 SEX: F Status: DEP ER SPEC: [id number] URSZULA: 05/21/14 [facility] [address]: Arthur Moore MD REQ: [id number] RECD: 05/22/14 STATUS: ANGEL ELIZABETH DR: Lucero Escalante ASSISTANT DIRECTOR OF SECURITY _ SOURCE: THROAT SPDESC: ORDERED: Throat Beta Str Procedure Result Verified Site Throat Beta Strep Culture Final 05/24/14842 ML Negative For Group A Beta Streptococcus END OF REPORT * ML=Testing performed at Main Lab DEPARTMENT OF PATHOLOGY, [address] [place] [address] Reece Padilla M.D. Director [facility] # [id number] 31 RUN DATE: 02/18/14 [facility] LAB LIVE PAGE 1 RUN TIME: 5[address] [place], [place] [address] Specimen Inquiry Name: THERESA MARIE : [address]: Lucero Escalante NP Acct: [id number] Unit: [id number] AGE: 33 Location: [facility] Re02/15/14 SEX: F Status: REG REF SPEC: [id number] URSZULA: 02/15/14-[address] [facility] [address]: Lucero Escalante NP REQ: [id number] RECD: 02/17/14-7465 STATUS: SOUT _ ORDERED: IMAGE ANALYSIS FINAL [...] was evaluated with the assistance of the [employer]p Test Imaging System. Due to cytologic findings at the customs investigator microscope, comprehensive manual rescreening by a Airport Security Screener may be required. The Pap Smear is [...] performed at Main Lab DEPARTMENT OF PATHOLOGY, [address] [place] [address] Reece Padilla M.D. Director [facility] # [id number] 32 FASTING 33 Desirable <150 Borderline high [...] than 20 ug/ml 39 RUN DATE: 04/28/13 [facility] LAB LIVE PAGE 1 RUN TIME: [address] [place] [address] Specimen Inquiry Name: THERESA MARIE : [address]: Arthur Moore MD Acct: [id number] Unit: [id number] AGE: 32 Location: [facility] Re04/26/13 SEX: F Status: DEP ER SPEC: [id number] URSZULA: 04/26/13 [facility] [address]: Arthur Moore MD REQ: [id number] RECD: 04/26/136 STATUS: COMP FITOHR DR: Myrna Li MD _ SOURCE: THROAT SPDESC: ORDERED: Throat Beta Str Procedure Result Verified Site Throat Beta Strep Culture Final 04/28/13- 810 ML Negative For Group A Beta Streptococcus END OF REPORT * ML=Testing performed at Main Lab DEPARTMENT OF PATHOLOGY, [address] [place] [address] Reece Padilla M.D. Director [facility] Permit #[id number] 40 HDL Interpretation: Undesirable: High Risk: Less [...] 10 HOUR 43 ---- RUN DATE: 08/26/11 [facility] NMI LIVE PAGE 1 RUN TIME: 1331 Specimen Inquiry RUN USER: INTERFACE -- Name: THERESA MARIE Status: REG REF Re08/25/11 Age/Sex: 31/F Unit#: [id number] Location: [facility] : [birth year] -- Specimen: [id number] SOUT Spec Date:08/25/11-[address]: Myrna Ryan Spec Type: CYTOLOGY Received:08/26/113454 Copies to: SOURCE ECTOCERVICAL/ENDOCERVICAL Thin Prep with [...] years. Final Interpretation electronically signed by: Connor VILLAR([facility]) 08/26/11 133 1 -- -- DEPARTMENT OF PATHOLOGY, [address] [place] [address] [facility] Permit #[id number] Ramírez Ovalles M.D. Assistant Dir ector -- 44 RUN DATE: 08/27/11 [facility] NMI LIVE PAGE 1 RUN TIME: 1358 Specimen Inquiry RUN USER: INTERFACE Name: THERESA MARIE Status: REG REF Re08/25/11 Age/Sex: 31/F Unit#: [id number] Location: [facility] : 80 SPEC #: [id number] URSZULA: 08/25/11 STATUS: COMP REQ #: [id number] RECD: 08/25/[address]: Myrna Li MD SOURCE: ENDOCERVIX ENTR: 08/25/[address]: JOAN: ORDERED: GC/CHL APTIMA QUERIES: MEDENT REQUISITION # [id number] ACT WKST: GCCHL 08/27/11 #1 Procedure Result [...] than a true positive. DEPARTMENT OF PATHOLOGY, [address] [place] [address] [facility] Permit #[id number] Reece Padilla M.D. Director Juancarlos Hartmann M.D. Parking Meter Servicer RUN DATE: 08/27/11 [facility] NMI LIVE PAGE 2 RUN TIME: 1358 Specimen Inquiry RUN USER: INTERFACE Name: THERESA MARIE Deepti Status: REG REF Re08/25/11 Age/Sex: 31/F Unit#: [id number] Location: [facility] : 80 -- -- CONTINU [...] be higher than a true positive. - [facility] State Permit #[id number] [address] [place] [address] DEPARTMENT OF PATHOLOGY, [address] [place] [address] [facility] Permit #[id number] Reece Padilla M.D. Director Juancarlos Hartmann M.D. Parking Meter Servicer Procedures Date Code Description Status 04/27/2016 [id number] Mammogram Completed Encounters Type Date Location Provider Dx Diagnosis Office Visit 11/13/2018 Flavia Escalante, R14.0 Abdominal 3:40p Medicine - [facility] N.P. distension (gaseous) Office Visit 09/12/2018 [facility] Corky Escalante, R11.2 Nausea with 4:00p Medicine - [facility] N.P. vomiting, unspecified Office Visit 06/15/2018 [facility] Internal Lucero Escalante, L03.032 Cellulitis of left 11:00a Medicine - [facility] N.P. toe Office Visit 05/19/2018 [facility] Flavia Escalante, L60.0 Ingrowing nail 10:20a Internal N.P. Medicine-Arrowwo od Office Visit 03/21/2018 [facility] Internal Lucero Escalante, Z00.00 Encntr for general 9:20a Medicine - [facility] N.P. adult medical exam w/o abnormal findings E78.00 Pure hypercholesterolemia, unspecified Z23 Encounter for immunization Office Visit 10/31/2017 11:40a [facility] Internal Lucero Escalante, J01.90 Acute sinusitis, Medicine - N.P. unspecified [facility] Office Visit 08/15/2017 2:40p [facility] Internal Jigar Martinez, ASSISTANT DIRECTOR OF SECURITY H81.10 Benign paroxysmal Medicine - vertigo, [facility] unspecified ear Office Visit 05/25/2017 1:40p Leticia [facility] Azucena Grady, J01.90 Acute sinusitis, Internal M.D. unspecified Medicine-Arroww ood Office Visit 03/17/2017 9:00a [facility] Internal Lucero Escalante, Z00.01 Encounter for Medicine - N.P. general adult [facility] medical exam w abnormal findings E78.00 Pure hypercholesterolemia, unspecified J30.9 Allergic rhinitis, unspecified Z11.51 Encounter for screening for human papillomavirus (HPV) Z23 Encounter for immunization Z00.00 Encntr for general adult medical exam w/o abnormal findings Office Visit 11/01/2016 10:20a [facility] Internal Lucero Escalante, N39.0 Urinary tract Medicine - N.P. infection, site [facility] not specified Office Visit 05/19/2016 3:20p [facility] Internal Lucero Escalante, J01.00 Acute maxillary Medicine - N.P. sinusitis, [facility] unspecified Office Visit 04/23/2016 9:40a [facility] Internal Lucero Escalante, R53.81 Other malaise Medicine - N.P. [facility] Office Visit 03/15/2016 1:40p [facility] Internal Lucero Escalante, Z00.01 Encounter for Medicine - N.P. general adult [facility] medical exam w abnormal findings Z12.31 Encntr screen mammogram for malignant neoplasm of breast E78.00 Pure hypercholesterolemia, unspecified J30.9 Allergic rhinitis, unspecified Z23 Encounter for immunization Office Visit 10/21/2015 [facility] Internal Dulce H10.9 Unspecified 11:20a Isai Cm M.D. conjunctivitis [facility] Office Visit 10/14/2015 [facility] Internal Lucero Escalante, J06.9 Acute upper 9:40a Medicine - N.P. respiratory [facility] infection, unspecified Office Visit 04/11/2015 [facility] Internal Lucero Escalante, J01.00 Acute maxillary 1:20p Medicine - N.P. sinusitis, [facility] unspecified Office Visit 02/25/2015 [facility] Internal Lucero Escalante, R21 Rash and other 11:40a Medicine - N.P. nonspecific skin [facility] eruption Office Visit 02/17/2015 [facility] Internal Lucero Escalante, J01.00 Acute maxillary 2:20p Medicine - N.P. sinusitis, [facility] unspecified Office Visit 02/06/2015 [facility] Internal Gerardo Gaviria, V70.0 Examination General 10:00a Medicine - ASSISTANT DIRECTOR OF SECURITY Medical Routine AT [facility] V72.31 Routine Flat Lock Machine Operator Examination 272.2 Hyperlipidemia Mixed 706.1 Acne Other V25.09 Contraceptive Management Other V04.81 Need For Prophylactic Vaccination & Inoculation/Influenza 305.1 Tobacco Use Disorder Office Visit 06/18/2014 4:20p [facility] Internal Lucero Escalante, 461.9 Sinusitis Acute Medicine - N.P. Unspec [facility] Office Visit 04/24/2014 9:30a [facility] Internal Jigar Martinez NP 465.9 URI Upper Medicine - Respiratory [facility] Infections Acute Unspec Sites Office Visit 02/15/2014 10:40a [facility] Internal Lucero Escalante, V70.0 Examination Medicine - N.P. General Medical [facility] Routine AT Health Care Facility V72.31 Routine Flat Lock Machine Operator Examination 305.1 Tobacco Use Disorder V04.81 Need For Prophylactic Vaccination & Inoculation/Influenza 272.4 Hyperlipidemia Other Unspec 706.1 Acne Other Office Visit 08/03/2013 9:40a [facility] Internal Lucero Escalante, 789.01 Pain Abdominal Medicine - N.P. Right Upper [facility] Quadrant Office Visit 06/28/2013 11:20a [facility] Internal Lucero Escalante, 465.9 URI Upper Medicine - N.P. Respiratory [facility] Infections Acute Unspec Sites Office Visit 02/14/2013 2:00p [facility] Internal Myrna Guillermo, 305.1 Tobacco Use Medicine - M.D. Disorder [facility] 477.9 Rhinitis Allergic Cause Unspec V70.0 Examination General Medical Routine AT Health Care Facility V25.09 Contraceptive Management Other Office Visit 12/22/2012 2:20p [facility] Internal Myrna Guillermo, 789.01 Pain Abdominal Medicine - [facility] M.D. Right Upper Quadrant 305.1 Tobacco Use Disorder 733.6 Tietzes Disease 787.03 Vomiting Alone Office Visit 07/28/2012 1:20p [facility] Internal Lucero Escalante, 787.03 Vomiting Alone Medicine - [facility] N.P. Office Visit 07/07/2012 11:20a [facility] Internal Myrna Guillermo, 305.1 Tobacco Use Medicine - [facility] M.D. Disorder 473.8 Sinusitis Chronic Other Office Visit 03/28/2012 10:40a [facility] Internal Lucero Escalante, 461.9 Sinusitis Acute Medicine - [facility] N.P. Unspec Office Visit 01/07/2012 2:00p [facility] Internal Myrna Guillermo, 305.1 Tobacco Use Medicine - [facility] M.D. Disorder V25.09 Contraceptive Management Other Office Visit 11/03/2011 11:20a [facility] Internal Lucero Escalante, 733.6 Tietzes Disease Medicine - N.P. [facility] Office Visit 08/25/2011 10:00a [facility] Internal Myrnapage Li, V72.31 Routine Flat Lock Machine Operator Medicine - M.D. Examination [facility] V76.2 Screening Malignant Neoplasm Cervix 305.1 Tobacco Use Disorder Plan of Treatment Future Appointment(s):12/14/2018 10:15 am - Arlene Marie NP at [facility] [email or web address]/31/2019 10:00 am - Lucero Escalante, N.P. at [facility] Internal Medicine - [facility]11/29/2018 - Lucero Escalante, N.P.R10.31 Right lower quadrant painNew Xrays:CT Abd/Pel W, Ordered: 11/29/18Comments:I am sending you for imaging to figure out what is going on. I will talk to you once your CT is doneto give you your results.
--- OUTSIDE RECORDS SUMMARY | 2018-11-30 13:09 | XMS REPORT | Continuity of Care Document ---
:1980 External Reference #:[id number] Author Name Huan Tejada MD Address [address] [place] [address] Care Team Providers Name Role Phone Lucero Escalante NP Care Team Information Sustainability Project Coordinator Unavailable Lucero Escalante NP Primary Care Physician Unavailable Payers Date Identification Numbers Payment Provider Subscriber Policy Number: [id number] [employer] Theresa Betancourt PayID: [id number] [address] [address] [place] [address] Problems Active Problems Provider Date Allergic urticaria Huan Tejada MD Onset: 11/10/2016 Allergic rhinitis Huan Tejada MD Onset: 04/09/2015 Allergic rhinitis due to pollen Huan Tejada MD Onset: 04/09/2015 Allergy status to unspecified drugs, Huan Tejada MD Onset: 2014 medicaments and biological substances status Allergy status to penicillin Huan Tejada MD Onset: 03/19/2015 Family History Date Family Member(s) Observation Comments Father Allergies PCN and pollen Social History Type Date Description Comments Sex Unknown Tobacco Use Start: Unknown Home is not smoke-free Pets 2 dogs Tobacco Use Start: Unknown Patient is a current smoker, down to 5 per day - - quit smokes every day date is in 3 wks Allergies, Adverse Reactions, Alerts Active Allergies Reaction Severity Comments Date Zithromax hives 03/19/2015 Penicillin 04/09/2015 Biaxin 11/10/2016 Medications Active Medications SIG Qnty Indications Ordering Provider Date Mometasone Furoate Use 2 Sprays 17units Nidhi Perez NP 06/26/2018 In Each 50mcg/Act Suspension Nostril Once Daily Levocetirizine Take One 30tabs Nidhi Perez NP 06/26/2018 Dihydrochloride Tablet By 5mg Mouth Once Tablets Daily as Needed Nasonex spray 2 sprays 17units J30.1 Huan Nieves 04/09/2015 50mcg/Act into each MD [place] Suspension nostril once daily. Benadryl Allergy Unknown 25mg Capsules Vitamin D-3 Unknown Multivitamin/Fluoride Unknown 0.25mg Chewtabs Cranberry Unknown 400mg Capsules Omeprazole Lucero Escalante NP 20mg Capsules DR Ondansetron Unknown 4mg Tablets Dispers History Medications Xyzal Allergy 24HR Take One Tablet 30tabs J30.1 Huan Nieves 11/09/2017 - By Mouth Once MD Terrell 11/10/2018 5mg Tablets Daily as Needed Xyzal Take One Tablet 30tabs J30.1 Huan Nieves 04/09/2015 - 5mg Tablets By Mouth Once MD [place]rell 11/09/2017 Daily as Needed Pimtrea Unknown - 11/09/2017 0.15-0.02/0.01 mg (10/10) Tablets Claritin one tablet by Unknown - 10mg mouth every 10/29/2015 Tablets morning prn Flonase Allergy Unknown - Relief 04/23/2015 50mcg/Act Suspension Loratadine 2 tab everyday Unknown - 10mg as needed 04/23/2015 Tablets Vital Signs Date Vital Result Comment 11/10/2018 1:32pm BP Systolic 102 mmHg BP Diastolic 64 mmHg Height 62 inches 5'2" Weight 163.00 lb BMI (Body Mass Index) 29.8 kg/m2 Heart Rate 64 /min Respiratory Rate 16 /min Body Temperature 98.2 F O2 % BldC Oximetry 98 % 11/09/2017 8:36am BP Systolic 114 mmHg BP Diastolic 76 mmHg Height 62 inches 5'2" Weight 163.00 lb BMI (Body Mass Index) 29.8 kg/m2 Heart Rate 76 /min Respiratory Rate 18 /min Body Temperature 98.2 F O2 % BldC Oximetry 99 % 11/10/2016 9:39am BP Systolic 102 mmHg BP Diastolic 67 mmHg Height 62 inches 5'2" Weight 150.00 lb BMI (Body Mass Index) 27.4 kg/m2 Heart Rate 60 /min Respiratory Rate 14 /min Body Temperature 98.2 F O2 % BldC Oximetry 98 % 10/29/2015 10:06am BP Systolic 111 mmHg BP Diastolic 73 mmHg Height 62 inches 5'2" Weight 145.00 lb BMI (Body Mass Index) 26.5 kg/m2 Heart Rate 63 /min Respiratory Rate 12 /min 04/23/2015 2:54pm BP Systolic 108 mmHg BP Diastolic 66 mmHg Height 62 inches 5'2" Weight 135.00 lb BMI (Body Mass Index) 24.7 kg/m2 Heart Rate 72 /min Respiratory Rate 20 /min 04/09/2015 1:40pm BP Systolic 108 mmHg BP Diastolic 74 mmHg Height 62 inches 5'2" Weight 135.00 lb BMI (Body Mass Index) 24.7 kg/m2 Heart Rate 76 /min Respiratory Rate 16 /min 03/19/2015 10:02am BP Systolic 118 mmHg BP Diastolic 88 mmHg Height 62 inches 5'2" Weight 135.00 lb BMI (Body Mass Index) 24.7 kg/m2 Heart Rate 76 /min Respiratory Rate 16 /min Procedures Date Code Description Status 03/28/2015 34613 Ingestion Challenge Test Sequential & Incremental Completed 03/28/2015 22241 Ingestion Challenge Test Sequential & Incremental Completed 03/19/2015 32992 Allergy Testing Any Combination Of Percutaneous W/Drugs Completed Encounters Type Date Location Provider Dx Diagnosis Office Visit 11/10/2018 1:30p Dilia Perez NP J30.89 Other allergic rhinitis L50.0 Allergic urticaria Office Visit 11/09/2017 8:30a Valeriano Albrecht30.1 Allergic rhinitis MD due to pollen J30.89 Other allergic rhinitis Office Visit 11/10/2016 9:30a Valeriano Albrecht30.1 Allergic rhinitis MD due to pollen J30.89 Other allergic rhinitis L50.0 Allergic urticaria Office Visit 10/29/2015 10:00a Valeriano Albrecht30.1 Allergic rhinitis MD due to pollen J30.89 Other allergic rhinitis Office Visit 04/23/2015 2:30p Valeriano Albrecht30.1 Allergic rhinitis MD due to pollen J30.89 Other allergic rhinitis Z88.0 Allergy status to penicillin Office Visit 04/09/2015 1:30p [place] Huan Tejada J30.1 Allergic rhinitis due to pollen J30.89 Other allergic rhinitis Office Visit 03/19/2015 9:15a [place] Huan Tejada, Z88.0 Allergy status to penicillin Z88.9 Allergy status to unsp drug/meds/biol subst status Plan of Treatment Future Appointment(s):11/16/2019 2:00 pm - Nidhi Perez NP at [id number] - Nidhi Perez NPJ30.89 Other allergic rhinitisComments:Patient presents with annual allergic rhinitis symptoms well controlled with mometasone and Xyzal. No change in current medical plan. Follow-up in one year.L50.0 Allergic urticariaComments:Patient has had no recurrence of urticaria, she reports these developed in the setting of a penicillin allergy. She continue to avoid all penicillin medications. No other medications or treatment indicated at this time.Follow-up in one year.Greater than 50% of the 15-minute visit was spent in discussion of the testing results and treatment options.
--- OUTSIDE RECORDS SUMMARY | 2018-11-30 13:09 | XMS REPORT | Continuity of Care Document ---
:1980 External Reference #:[id number] Author Name Lucinda Mccurdy Care Team Providers Name Role Phone Dulce Cm MD Primary Care Physician Unavailable Payers Date Identification Numbers Payment Provider Subscriber Effective: 2013 Policy Number: [id number] [employer] Facets Theresa Marie PayID: [id number] [address] [address] [place] [address] Effective: 2010 Policy Number: [id number] [employer] Facets Theresa Marie Expires: 2013 PayID: [id number] [address] [address] [place] [address] Problems Active Problems Provider Date Mixed hypercholesterolemia and Gerardo Gaviria NP Onset: 01/30/2015 hypertriglyceridemia Resolved Problems Tobacco user Myrna Li M.D. Onset: 08/25/2011 Resolved: 05/25/2017 Family History Date Family Member(s) Observation Comments Father [place] (age 50's),Stents, HTN, Hyperlipidemia Age 66 Mother [...] 10 cigs per day Smoking Status Reviewed: 11/13/18 Patient is a former Started age 18; Quit smoker Mar 2015; smoked less than 10 cigs per day Exercise Exercises sporadically Type/Frequency Allergies, Adverse Reactions, Alerts Active Allergies Reaction Severity Comments Date Zithromax hives Moderate 08/25/2011 Augmentin 04/01/2015 Penicillins 04/11/2015 Biaxin Nausea, Hives, swelling 05/27/2016 Medications Active Medications SIG Qnty Indications Ordering Date Provider Simethicone Extra one by mouth 60caps R11.2 Lucero Escalante, 11/13/2018 Strength four times a N.P. 125mg Capsules day as needed Ondansetron HCL one by mouth 30tabs Lucero Escalante, 11/10/2018 4mg Tablets every 6 hours N.P. as needed for nausea Omeprazole 1 by mouth 30tabs R11.2 Lucero Escalante, 09/12/[address] every day N.P. Sudafed 12 Hour 1 by mouth 14tabs Lucero Escalante, 10/31/2017 120mg Tablets twice day as N.P. ER 12HR needed Vitamin D-3 2 by mouth Lucero Escalante, 11/01/2016 1000Unit Capsules every day N.P. Aleve 1-2 po qd prn 60caps Unknown 220mg Capsules Levocetirizine Unknown Dihydrochloride 5mg Tablets Nasonex Unknown 50mcg/Act Suspension Complete 1 by mouth Unknown 14-0.4mg every day Tablets Cranberry one daily Unknown 450mg Tablets History Medications Doxycycline Hyclate Twice Daily 20tabs Unknown 08/13/2018 [...] HCL take one tablet 30tabs H81.10 Jigar Martinez NP 08/15/2017 - 25mg every 6 hours as 10/31/2017 Tablets needed for dizziness Doxycycline Hyclate 1 tablet twice a 20tabs J01.90 Azucena Grady, 2017 - day x 10 days M.D. 06/04/2017 100mg Tablets Ciprofloxacin HCL one by mouth 14tabs N39.0 Lucero Escalante, 11/01/2016 - 250mg twice a day for N.P. 11/08/2016 Tablets 7 days Biaxin one by mouth 20tabs Z00.01 Lucero Escalante, 05/19/2016 - 500mg Tablets twice daily for N.P. 05/27/2016 10 days Vitamin D3 one by mouth 8caps Lucero Escalante, 04/26/2016 - 15619Yoby once weekly N.P. 06/25/2016 Capsules Tobramycin 2 drops in 5ml H10.9 Dulce 10/21/2015 - 0.3% affected eye Cotton, M.D. 03/15/2016 Solution every 4 hours Biaxin one by mouth 20tabs Z00.01 Lucero Escalante, 04/11/2015 - 500mg Tablets twice daily for N.P. 04/21/2015 10 days Amoxicillin/Clavulana one tablet by 20tabs Z00.01 Lucero Escalante, 2014 - te Potassium mouth twice N.P. 02/27/2015 875-125mg daily for 10 Tablets days Fluconazole one by mouth september 3tabs Z00.01 Lucero Escalante, 02/17/2015 - 150mg repeat in 3 days N.P. 04/11/2015 Tablets as needed Benadryl Allergy 1 tab as needed 2tabs Gerardo Gaviria NP 02/06/2015 - 25mg 04/11/2015 Tablets Flonase Allergy Use as Directed 16units Lucero Escalante, 01/17/2015 - Relief 2 Sprays In Each N.P. 02/05/2015 50mcg/Act Nostril Daily as Suspension Needed Flonase Use as Directed 16unsana Martinez NP 01/17/2015 - 50mcg/Act 2 Sprays In Each 04/11/2015 Suspension Nostril Daily as Needed Benzonatate one by mouth 30caps 465.9 Lucero Escalante, 06/20/2014 - 200mg three times N.P. 02/05/2015 Capsules daily as needed for cough Biaxin one by mouth 20tabs 461.9 Lucero Escalante, 06/18/2014 - 500mg Tablets twice daily for N.P. 06/28/2014 10 days Benzonatate take one or two 30caps 465.9 Lucero Escalante, 04/24/2014 - 100mg capsules every 8 N.P. [...] 0.15-0.02/0.01 By Mouth Once N.P. 04/23/2016 mg (/) Tablets Daily as Directed Ondansetron Odt take 1-2 tablets 60tabs 787.03 Myrna Li, 12/22/2012 - 4mg every 8hours as M.D. 02/14/2013 Tablets Dispers needed for nausea Tramadol HCL 1-2 tablets 30tabs 733.6 Myrna Li, 12/22/2012 - 50mg every 8 hours as M.D. 02/14/2013 Tablets needed Diflucan take 1 tablet 3tabs Myrna Li, 07/31/2012 - 150mg Tablets every 72 hrs for M.D. 12/22/2012 3 doses Prednisone Take 2 tablets 30tabs Myrna Li, 07/14/2012 - 20mg Tablets twice daily for M.D. 07/28/2012 5 days, then 1 tablet twice daily for 5 days Amoxicillin/Clavulana take 1 tablet 28tabs Myrna Li, 07/14/2012 - te Potassium twice daily M.D. 12/22/2012 500-125mg until gone. Tablets Tylenol prn Myrna Li, 07/07/2012 - 325mg Tablets M.D. 02/14/2013 Biaxin one by mouth 20tabs 461.9 Lucero Escalante, 03/28/2012 - 500mg Tablets twice daily for N.P. 04/07/2012 10 days Benzonatate one by mouth 30caps 461.9 Lucero Escalante, 03/28/2012 - 100mg three times N.P. 04/11/2012 Capsules daily as needed for cough Mircette 1 po qd 30tabs Myrna Li, 02/28/2012 - 0.15-0.02/0.01 M.D. 03/28/2012 mg (2 Tablets Cryselle-28 1 po qd 1tabs Myrna Li, - M.D. 02/28/2012 0.3-30mg-mcg Tablets Kariva 1 po qd 28tabs Myrna Li, - 0.15-0.02/0.01 M.D. 01/25/2013 mg (2 Tablets Percocet 1-2 po q4-6h prn 60tabs Unknown - 5-325mg pain 02/15/2014 Tablets Ultracet 1 - 2 po q4-6hr 60tabs Unknown - 37.5-325mg prn pain 02/15/2014 Tablets Flonase Use as Directed 16units Jigar Martinez, PARUL - 50mcg/Act 2 Sprays In Each 01/17/2015 Suspension Nostril Daily as Needed Immunizations CPT Code Status Date Vaccine Reaction Lot # [id number] Given 03/21/2018 Influenza Virus Vaccine, [id number] Quadrivalent, Split, Preservative Free 28163 Given 03/17/2017 Influenza Virus Vaccine, [id number] Quadrivalent, Split, Preservative Free 86979 Given 03/15/2016 Influ Virus Vaccine, no reaction noted ... [id number] Quadrivalent, Split Virus, [place] [address] Given 02/06/2015 Influenza Virus Vaccine, [id number] Quadrivalent, Split, Preservative Free 06412 Given 02/15/2014 Influenza Virus Vaccine, [id number] Quadrivalent, Split, Preservative Free 55678 Given 03/14/2013 Tdap - Tetanus/Diptheria/Acellular Pertussis 67913 Given 03/14/2013 Tdap - [id number] Tetanus/Diptheria/Acellular Pertussis 19149 Given 03/14/2013 Flu Vaccine Split Virus [id number] Preservative Free For Indiv 3Yr Older Vital Signs Date Vital Result Comment 11/13/2018 3:58pm Height 62.5 inches 5'2.50" Weight [...] Result H/L Range Note Basic Metabolic 09/12/2018 [facility] Sodium 140 mmol/L N 135- [address] [place] [address] [phone] Potassium 3.9 mmol/L N 3.5-5.0 Chloride 107 mmol/L N 101-111 Co2 Carbon Dioxide 27 mmol/L N 22-32 Anion Gap 6 mmol/L N 2-11 Glucose 81 mg/dL N 70-100 Blood Urea Nitrogen 12 mg/dL N 6-24 Creatinine 0.75 mg/dL N 0.51-0.95 BUN/Creatinine Ratio 16.0 N 8-20 Calcium 9.1 mg/dL N 8.6-10.3 Egfr Non- 86.5 >60 Egfr 104.6 >60 1 Urinalysis Profile 09/07/2018 [facility] Urine Color Yellow [address] [place] [address] [phone] Urine Appearance Clear Urine Specific Only 1.021 N 1.010-1.030 Urine pH 8.0 N 5-9 Urine Urobilinogen Negative Negative Urine Ketones 1+ Abnormal Negative Urine Protein Negative Negative Urine Leukocytes Negative Negative Urine Blood Negative Negative Urine Nitrite Negative Negative Urine Bilirubin Negative Negative Urine Glucose Negative Negative CBC Auto Diff 09/07/2018 [facility] White Blood 9.3 10^3/uL N 3.5-10.[address] [place] [address] [phone] Red Blood Count 4.35 10^6/uL N 3.70-4.87 [...] Blood Cells % 0.1 Comp Metabolic Panel 09/07/2018 [facility] Sodium 138 mmol/L N 135-[address] [place] [address] [phone] Potassium 2.8 mmol/L Low 3.5-5.0 Chloride 103 [...] Egfr Non- 86.5 >60 Egfr 104.6 >60 2 Laboratory test 09/07/2018 [facility] Magnesium 1.9 mg/dL N 1.9-2.[address] [place] [address] [phone] Lipase < 10 U/L Low 11.0-82.0 C Reactive Protein 48.86 mg/L High <8.01 HCG < 0.60 mIU/mL 3 Lactic Acid 2.0 mmol/L N 0.5-2.0 4 Comp Metabolic Panel 03/09/2018 [facility] Sodium 139 mmol/L N 135-145 [address] [place] [address] [phone] Potassium 4.0 mmol/L N 3.5-5.0 Chloride 106 [...] Egfr 100.6 >60 5 Lipid Profile 03/09/2018 [facility] Triglycerides 233 mg/dL 6 (Trig/Chol/HDL) [address] [place] [address] [phone] Cholesterol 231 mg/dL 7 HDL Cholesterol 44.4 mg/dL 8 LDL Cholesterol 140 mg/dL 9 Laboratory test 05/14/2017 [facility] Rapid Strep Negative Negative 10 finding [address] [place] [address] [phone] Lipid Profile 03/28/2017 [facility] Triglycerides 154 mg/dL N 11 (Trig/Chol/HDL) [address] [place] [address] [phone] Cholesterol 254 mg/dL N 12 HDL Cholesterol 52.8 mg/dL N 13 LDL Cholesterol 170 mg/dL N 14 Comp Metabolic Panel 03/28/2017 [facility] Sodium 139 mmol/L N 133-[address] [place] [address] [phone] Potassium 4.1 mmol/L N 3.5-5.0 Chloride 104 [...] 80.0 N >60 Egfr 102.9 N >60 15 Laboratory test 03/17/2017 [facility] Cytology SEE RESULT BELOW [address] [place] [address] [phone] HPV Rna Ww/Reflex Genotype Negative N Negative 17 Ua Routine 11/01/2016 [employer] Ua Specific Only 1015 Ua PH 5 Ua Color yellow Ua Appera cloudy Ua WBC positive Ua Protein normal Ua Glucose negative Ua Ketones normal Ua Bilirubin negative Ua Urobilinogen normal Ua Nitrite negative Ua Occult Blood trace Urine Culture And 11/01/2016 [facility] Urine Culture SEE RESULT [address] [place] [address] [phone] Laboratory test 06/23/2016 [facility] Vitamin D 41.1 ng/mL N 30-[address] Total 25(Oh) [place] [address] [phone] Laboratory test 04/23/2016 [facility] TSH (Thyroid 3.03 mcIU/mL N 0.34- finding [address] Stim Horm) 5.60 [place] [address] [phone] Comp Metabolic 04/23/2016 [facility] Sodium 138 mmol/L N 133- [address] [place] [address] [phone] Potassium 4.1 mmol/L N 3.5-5.0 Chloride 104 [...] N >60 19 CBC Auto Diff 04/23/2016 [facility] White Blood 7.6 10^3/uL N 3.5-10.[address] [place] [address] [phone] Red Blood Count 4.45 10^6/uL N 4.0-5.4 [...] Cells % 0 N Laboratory test 04/23/2016 [facility] Ferritin 24.2 ng/mL N 11 -[address] [place] [address] [phone] Vitamin D Total 25(Oh) 18.4 ng/mL Low 30-50 Vitamin B12 467 pg/mL N 180-914 20 Laboratory test 03/08/2016 [facility] Glucose 85 mg/dL N 70- [address] [place] [address] [phone] Lipid Profile 03/08/2016 [facility] Triglycerides 252 mg/dL N 21 (Trig/Chol/HDL) [address] [place] [address] [phone] Cholesterol 239 mg/dL N 22 HDL Cholesterol 58.2 mg/dL N 23 LDL Cholesterol 130 mg/dL N 24 Lipid Profile 01/30/2015 [facility] Triglycerides 359 mg/dL N 25 (Trig/Chol/HDL) [address] [place] [address] [phone] Cholesterol 275 mg/dL N 26 HDL Cholesterol 56.9 mg/dL N 27 LDL Cholesterol 146 mg/dL N 28 Laboratory test 01/30/2015 [facility] Glucose 87 mg/dL N 70- 100 [address] [place] [address] [phone] Throat-Beta 05/21/2014 [facility] Throat Beta Strep (SEE [address] Culture NOTE) [place] [address] [phone] Laboratory test 02/15/2014 [facility] Cytology RUN DATE: [address] 02/18/ [place] [address] <SEE [phone] NOTE> Lipid Profile 02/12/2014 [facility] Triglycerides 356 mg/dL N 32, 33 (Trig/Chol/HDL) [address] [place] [address] [phone] Cholesterol 257 mg/dL N 34 HDL Cholesterol 51.9 mg/dL N 35 LDL Cholesterol 134 mg/dL N 36 Comp Metabolic Panel 02/12/2014 [facility] Sodium 138 mmol/L N 133-[address] [place] [address] [phone] Potassium 3.8 mmol/L N 3.7-5.6 Chloride 104 [...] N >60 37 Laboratory test finding 08/03/2013 [facility] Amylase 35 U/L 29-[address] [place] [address] [phone] D Dimer Quantitative < 200 ng/mL Less Than 230 38 Throat-Beta 04/26/2013 [facility] Throat Beta Strep (SEE [address] Culture NOTE) [place] [address] [phone] Laboratory test 02/20/2013 [facility] Glucose 79 mg/dL 70-[address] [place] [address] [phone] Lipid Profile 02/20/2013 [facility] Triglycerides 240 mg/dL High 40-2 (Trig/Chol/HDL) [address] [place] [address] [phone] Cholesterol 275 mg/dL High Less than 200 HDL Cholesterol 65 mg/dL High 40-60 41 Cholesterol/HDL Ratio 4.2 Average 1-4.44 LDL Cholesterol 162.0 High Less Than 100 42 Ua Routine 12/22/2012 [facility] Ua Specific Only 1.010 Ua PH 5 Ua Color bright orange Ua Appera clear Ua WBC trace Ua Protein 300+ Ua Glucose neg Ua Ketones neg Ua Bilirubin small Ua Urobilinogen neg Ua Nitrite neg Ua Occult Blood neg Laboratory test 08/25/2011 [facility] Cytology <SEE [address] NOTE> [place] [address] [phone] GC/Chlamydia 08/25/2011 [facility] M <SEE [address] NOTE> [place] [address] [phone] 1 Because ethnic data is not always [...] 5 Kidney failure <15 (or dialysis) 2 Because ethnic data is not always readily [...] 15-29 5 Kidney failure <15 (or dialysis) 3 <5.0 Negative 5.0 - 25.0 Indeterminate (Repeat testing recommended after 72 hours) >25.0 Positive Perimenopausal women can display HCG levels of up to 20 mIU/mL 4 [facility] Severe Sepsis and Septic Shock Management Bundle Measure requires all lactic acids initially measuring >2.0 mmol/L be repeated. 5 Because ethnic data is not always [...] 130-159 High: 160-189 Very High: >189 10 Aircraft Inspection Record Clerk: [id number] Desirable: <150 Borderline High: 150-199 High: 200-499 Very High: >500 12 Desirable: <200 Borderline High: 200-239 High: >239 13 Low: <40 Desirable: 40-60 High: >60 14 Desirable: <100 Near Optimal: 100-129 Borderline High: 130-159 High: 160-189 Very High: >189 15 Because ethnic data is not always readily [...] 15-29 5 Kidney failure <15 (or dialysis) 16 SEE RESULT BELOW Name: THERESA MARIE : [address]: Lucero Escalante NP Acct: [id number] Unit: [id number] AGE: 36 Location: [facility] Re03/17/17 SEX: F Status: REG REF SPEC: [id number] URSZULA: 03/17/17-1018 [facility] DR: Lucero Escalante NP REQ: [id number] RECD: 03/18/17 STATUS: SOUT _ ORDERED: TP IMAGE ANAL, HPV/Thin Prep, HPV 16/18 GENE COMMENTS: [id number] FINAL DIAGNOSIS Negative for Intraepithelial lesion or [...] was evaluated with the assistance of the De Correspondent Test Imaging System. Due to cytologic findings at the electric knife operator microscope, comprehensive manual rescreening by a Parcel Post Carrier may be required. The Pap Smear is [...] performed at Main Lab DEPARTMENT OF PATHOLOGY, [address] [place] [address] RUN DATE: 03/21/17 [facility] LAB LIVE PAGE 1 Patient: THERESA MARIE [id number] (Continued) Reece Padilla M.D. Director [facility] # [id number] 17 The high-risk HPV types detected by the assay include: 16, 18, 31, 33, 35, 39, 45, 51, 52, 56, 58, 59, 66, and 68. 18 SEE RESULT BELOW Name: THERESA MARIE : [address]: Lucero Escalante NP Acct: [id number] Unit: [id number] AGE: 36 Location: [facility] Re11/01/16 SEX: F Status: REG REF SPEC: [id number] URSZULA: 11/01/16-[address]: Lucero Escalante NP REQ: [id number] RECD: 11/01/16 STATUS: COMP _ SOURCE: URINE SPDESC: ORDERED: Urine Culture COMMENTS: [id number] Urine Source: Random Procedure Result Reported Site Urine Culture Final 11/03/16- 0723 ML Organism 1 ESCHERICHIA COLI [place] Count 50-75,000 (Many) CFU/ML 1. ESCHERICHIA COLI [...] antibiotic reporting. * ML - MAIN LAB ([facility]) . END OF REPORT * ML=Testing performed at Main Lab DEPARTMENT OF PATHOLOGY, [address] [place] [address] Reece Padilla M.D. Director [facility] # [id number] 19 Because ethnic data is not always [...] FASTING 10 HOUR 30 RUN DATE: 05/24/14 [facility] LAB LIVE PAGE 1 RUN TIME: [address] [place] [address] Specimen Inquiry Name: THERESA MARIE : [address]: Arthur Moore MD Acct: [id number] Unit: [id number] AGE: 34 Location: [facility] Re05/21/14 SEX: F Status: DEP ER SPEC: [id number] URSZULA: 05/21/14-1734 [facility] DR: Arthur Moore MD REQ: [id number] RECD: 05/22/14-1204 STATUS: ANGEL ELIZABETH DR: Lucero Escalante RADIOSONDE OPERATOR _ SOURCE: THROAT SPDESC: ORDERED: Throat Beta Str Procedure Result Verified Site Throat Beta Strep Culture Final 05/24/14- 842 ML Negative For Group A Beta Streptococcus END OF REPORT * ML=Testing performed at Main Lab DEPARTMENT OF PATHOLOGY, [facility] [employer] [place] [address] Reece Padilla M.D. Director [facility] # [id number] RUN DATE: 02/18/14 [facility] LAB LIVE PAGE 1 RUN TIME: 6256 [facility] [employer] [place], [place] [address] Specimen Inquiry Name: THERESA MARIE : [address]: Lucero Escalante NP Acct: [id number] Unit: [id number] AGE: 33 Location: [facility] Re02/15/14 SEX: F Status: REG REF SPEC: [id number] URSZULA: 02/15/14-1149 [facility] DR: Lucero Escalante RADIOSONDE OPERATOR REQ: [id number] RECD: 02/17/14-1541 STATUS: SOUT _ ORDERED: IMAGE ANALYSIS FINAL [...] since. Signed (signature on file) TRUNG Hutton (ASC) 02/18 1458 This Pap test was evaluated with the assistance of the ThinPrep Test Imaging System. Due to cytologic findings at the electric knife operator microscope, comprehensive manual rescreening by a Parcel Post Carrier may be required. The Pap Smear is [...] performed at Main Lab DEPARTMENT OF PATHOLOGY, [address] [place] [address] Reece Padilla M.D. Director [facility] # [id number] 32 FASTING 33 Desirable <150 Borderline high [...] than 20 ug/ml 39 RUN DATE: 04/28/13 [facility] LAB LIVE PAGE 1 RUN TIME: [address] [place] [address] Specimen Inquiry Name: THERESA MARIE : [address]: Arthur Moore MD Acct: [id number] Unit: [id number] AGE: 32 Location: [facility] Re04/26/13 SEX: F Status: DEP ER SPEC: [id number] URSZULA: 04/26/13 [facility] DR: Arthur Moore MD REQ: [id number] RECD: 04/26/13 STATUS: COMP OTHR DR: Myrna Li MD _ SOURCE: THROAT SPDESC: ORDERED: Throat Beta Str Procedure Result Verified Site Throat Beta Strep Culture Final 04/28/13810 ML Negative For Group A Beta Streptococcus END OF REPORT * ML=Testing performed at Main Lab DEPARTMENT OF PATHOLOGY, [address] [place] [address] Reece Padilla M.D. Director [facility] Permit #[id number] FASTING 10 HOUR 41 HDL Interpretation: Undesirable: High Risk: Less than 40 mg/dL Desirable: Low Risk: Greater than 60 mg/dL 42 LDL Interpretation: Low Risk Optimal Level: LDL Less than 100 mg/dL Near or Above Optimal: LDL 100-129 mg/dL Borderline High Risk: LDL 130-159 mg/dL High Risk: LDL 160-189 mg/dL Very High Risk: LDL Greater than 189 mg/dL 43 ---- RUN DATE: 08/26/11 [facility] NMI LIVE PAGE 1 RUN TIME: 1331 Specimen Inquiry RUN USER: INTERFACE -- Name: THERESA MARIE Accnithya#: [id number] Status: REG REF Re08/25/11 Age/Sex: 31/F Unit#: [id number] Location: [facility] : [birth year] -- Specimen: [id number] SOUT Spec Date:08/25/11 [facility] Dr: Myrna Ryan Spec Type: CYTOLOGY Received:08/26/11 Copies to: SOURCE ECTOCERVICAL/ENDOCERVICAL Thin Prep with [...] was evaluated with the assistance of the Figleaves.comPrep Pap Test Imaging System. The Pap Smear [...] years. Final Interpretation electronically signed by: Connor VILLAR(ASC) 08/26/11 133 1 -- -- DEPARTMENT OF PATHOLOGY, [address] [place] [address] [facility] Permit #[id number] Reece Padilla M.D. Director Juancarlos Hartmann M.D. Chef Concierge Dir bita -- 44 RUN DATE: 08/27/11 [facility] NMI LIVE PAGE 1 RUN TIME: 0009 Specimen Inquiry RUN USER: INTERFACE Name: THERESA MARIE Status: REG REF Re08/25/11 Age/Sex: 31/F Unit#: [id number] Location: [email or web address] : [birth year] SPEC #: [id number] URSZULA: 08/25/11 STATUS: COMP REQ #: [id number] RECD: 08/25/[address]: Myrna Li MD SOURCE: ENDOCERVIX ENTR: 08/25/[address]: JOAN: ORDERED: GC/CHL APTIMA QUERIES: MEDENT REQUISITION # [id number] ACT WKST: GCCHL 08/27/11 #1 Procedure Result [...] result may have adverse psychosocial impact, the [facility] recommends retesting by a method using an [...] than a true positive. DEPARTMENT OF PATHOLOGY, [address] [place] [address] [facility] Permit #[id number] Ramírez Ovalles M.D. [employer] Worker Helper RUN DATE: 08/27/11 [facility] NMI LIVE PAGE 2 RUN TIME: 1358 Specimen Inquiry RUN USER: INTERFACE Name: THERESA MARIE Status: REG REF Re08/25/11 Age/Sex: 31/F Unit#: [id number] Location: [facility] : [birth year] -- -- CONTINU ED Procedure [...] may be higher than a true positive. [facility] Permit #[id number] [address] [place] [address] DEPARTMENT OF PATHOLOGY, [address] [place] [address] [facility] Permit #[id number] Reece Padilla M.D. Director Juancarlos Hartmann M.D. [employer] Worker Helper Procedures Date Code Description Status 04/27/2016 [id number] Mammogram Completed Encounters Type Date Location Provider Dx Diagnosis Office Visit 09/12/2018 [facility] Internal Lucero Escalante, R11.2 Nausea with 4:00p Medicine - Ccmob N.P. vomiting, unspecified Office Visit 06/15/2018 [facility] Internal Lucero Escalante, L03.032 Cellulitis of left 11:00a Medicine - Ccmob N.P. toe Office Visit 05/19/2018 Leticia Escalante L60.0 Ingrowing nail 10:20a Internal N.P. Medicine-Arrowwo od Office Visit 03/21/2018 [facility] Internal Lucero Escalante, Z00.00 Encntr for general 9:20a Medicine - Ccmob N.P. adult medical exam w/o abnormal findings E78.00 Pure hypercholesterolemia, unspecified Z23 Encounter for immunization Office Visit 10/31/2017 11:40a [facility] Internal Valeriano Simental01.90 Acute sinusitis, Medicine - N.P. unspecified Ccmob Office Visit 08/15/2017 2:40p [facility] Internal Jigar Martinez NP H81.10 Benign paroxysmal Medicine - vertigo, Ccmob unspecified ear Office Visit 05/25/2017 1:40p [employer] [facility] Valeriano Pop01.90 Acute sinusitis, Internal MKim unspecified Medicine-Arroww ood Office Visit 03/17/2017 9:00a [facility] Internal Lucero Escalante, Z00.01 Encounter for Medicine - N.P. general adult Ccmob medical exam w abnormal findings E78.00 Pure hypercholesterolemia, unspecified J30.9 Allergic rhinitis, unspecified Z11.51 Encounter for screening for human papillomavirus (HPV) Z23 Encounter for immunization Z00.00 Encntr for general adult medical exam w/o abnormal findings Office Visit 11/01/2016 10:20a [facility] Lucero Escalante, N39.0 Urinary tract Medicine - N.P. infection, site Ccmob not specified Office Visit 05/19/2016 3:20p [facility] Lucero Escalante J01.00 Acute maxillary Medicine - N.P. sinusitis, Ccmob unspecified Office Visit 04/23/2016 9:40a [facility] Lucero Escalante, R53.81 Other malaise Medicine - N.P. Ccmob Office Visit 03/15/2016 1:40p [facility] Lucero Escalante, Z00.01 Encounter for Medicine - N.P. general adult Ccmob medical exam w abnormal findings Z12.31 Encntr screen mammogram for malignant neoplasm of breast E78.00 Pure hypercholesterolemia, unspecified J30.9 Allergic rhinitis, unspecified Z23 Encounter for immunization Office Visit 10/21/2015 [facility] Dulce H10.9 Unspecified 11:20a Isai Cm M.D. conjunctivitis Ccmob Office Visit 10/14/2015 [facility] Lucero Escalante, J06.9 Acute upper 9:40a Medicine - N.P. respiratory Ccmob infection, unspecified Office Visit 04/11/2015 [facility] Lucero Escalante, J01.00 Acute maxillary 1:20p Medicine - N.P. sinusitis, Ccmob unspecified Office Visit 02/25/2015 [facility] Lucero Escalante, R21 Rash and other 11:40a Medicine - N.P. nonspecific skin Ccmob eruption Office Visit 02/17/2015 [facility] Lucero Escalante, J01.00 Acute maxillary 2:20p Medicine - N.P. sinusitis, Ccmob unspecified Office Visit 02/06/2015 [facility] Gerardo Gaviria, V70.0 Examination General 10:00a Medicine - RADIOSONDE OPERATOR Medical Routine AT [facility] V72.31 Routine Coconut Jelly Roller Examination 272.2 Hyperlipidemia Mixed 706.1 Acne Other V25.09 Contraceptive Management Other V04.81 Need For Prophylactic Vaccination & Inoculation/Influenza 305.1 Tobacco Use Disorder Office Visit 06/18/2014 4:20p [facility] Lucero Escalante, 461.9 Sinusitis Acute Medicine - N.P. Unspec Ccmob Office Visit 04/24/2014 9:30a [facility] Jigar Martinez RADIOSONDE OPERATOR 465.9 URI Upper Medicine - Respiratory Ccmob Infections Acute Unspec Sites Office Visit 02/15/2014 10:40a [facility] Lucero Escalante, V70.0 Examination Medicine - N.P. General Medical Ccmob Routine AT [facility] V72.31 Routine Coconut Jelly Roller Examination 305.1 Tobacco Use Disorder V04.81 Need For Prophylactic Vaccination & Inoculation/Influenza 272.4 Hyperlipidemia Other Unspec 706.1 Acne Other Office Visit 08/03/2013 9:40a [facility] Lucero Escalante, 789.01 Pain Abdominal Medicine - N.P. Right Upper Ccmob Quadrant Office Visit 06/28/2013 11:20a [facility] Lucero Escalante, 465.9 URI Upper Medicine - N.P. Respiratory Ccmob Infections Acute Unspec Sites Office Visit 02/14/2013 2:00p [facility] Corky Li, 305.1 Tobacco Use Medicine - M.D. Disorder Ccmob 477.9 Rhinitis Allergic Cause Unspec V70.0 Examination General Medical Routine AT [facility] V25.09 Contraceptive Management Other Office Visit 12/22/2012 2:20p [facility] Corky Li, 789.01 Pain Abdominal Medicine - Ccmob M.D. 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 Office Visit 07/07/2012 11:20a [facility] Corky Li, 305.1 Tobacco Use Medicine - Ccmob M.D. Disorder 473.8 Sinusitis Chronic Other Office Visit 03/28/2012 10:40a [facility] Lucero Escalante, 461.9 Sinusitis Acute Medicine - Ccmob N.P. Unspec Office Visit 01/07/2012 2:00p [facility] Myrna Guillermo, 305.1 [facility] V25.09 Contraceptive Management Other Office Visit 11/03/2011 11:20a [facility] Lucero Escalante, 733.6 Tietzes Disease Medicine - N.P. Ccmob Office Visit 08/25/2011 10:00a [facility] Myrna Li, V72.31 Routine Coconut Jelly Roller Medicine - [facility] Screening Malignant Neoplasm Cervix 305.1 Tobacco Use Disorder Plan of Treatment Future Appointment(s):03/22/2019 10:00 am - Lucero Escalante N.P. at [facility] Lucero Escalante N.P.R11.2 Nausea with vomiting, unspecifiedNew Medication:Simethicone Extra Strength 125 mg - one by mouth four times a day as neededComments:For your nausea, bloating, and abdominal pain I want you to take the Omeprazole. If needed take the Ondansetron. To help with the bloating and gas I have prescribed Simethicone 150 mg. You make take this 4 times daily.Since you are continuing to have issues, I am referring you to a GI specialist.Referral:Arlene Marie, RADIOSONDE OPERATOR, Family/RADIOSONDE OPERATOR
--- OUTSIDE RECORDS SUMMARY | 2018-11-30 13:09 | XMS REPORT | Continuity of Care Document ---
:1980 External Reference #:[id number] Author Name Stacey Titus Care Team Providers Name Role Phone Dulce Cm MD Primary Care Physician Unavailable Payers Date Identification Numbers Payment Provider Subscriber Effective: 2013 Policy Number: [id number] BS Facets Theresa Marie PayID: [id number] [address] [address] [place] [address] Effective: 2010 Policy Number: [id number] [employer] Facets Theresa Marie Expires: 2013 PayID: [id number] [address] [address] [place] [address] Problems Active Problems Provider Date Mixed hypercholesterolemia and Gerardo Gaviria NP Onset: 01/30/2015 hypertriglyceridemia Resolved Problems Tobacco user Myrna Li M.D. Onset: 08/25/2011 Resolved: 05/25/2017 Family History Date Family Member(s) Observation Comments Father [place] (age 50's),Stents, HTN, Hyperlipidemia Age 66 Mother [...] by mouth 8caps Lucero Escalante, 04/26/2016 - 62076Lswf once weekly N.P. 06/25/2016 Capsules Tobramycin 2 [...] Code Status Date Vaccine Reaction Lot # 11922 Given 03/21/2018 Influenza Virus Vaccine, [id number] Quadrivalent, Split, Preservative Free 74997 Given 03/17/2017 Influenza Virus Vaccine, [id number] Quadrivalent, Split, Preservative Free 25949 Given 03/15/2016 Influ Virus Vaccine, no reaction noted ... [id number] Quadrivalent, Split Virus, [place] [address] Given 02/06/2015 Influenza Virus Vaccine, [id number] Quadrivalent, Split, Preservative Free 32402 Given 02/15/2014 Influenza Virus Vaccine, [id number] Quadrivalent, Split, Preservative Free 19624 Given 03/14/2013 Tdap - Tetanus/Diptheria/Acellular Pertussis 12522 Given 03/14/2013 Tdap - [id number] Tetanus/Diptheria/Acellular Pertussis 94789 Given 03/14/2013 Flu Vaccine Split Virus [id number] Preservative Free For Indiv 3Yr Older Vital [...] Result H/L Range Note Basic Metabolic 09/12/2018 [facility] Sodium 140 mmol/L N 135- [address] [place] [address] [phone] Potassium 3.9 mmol/L N 3.5-5.0 Chloride 107 mmol/L N 101-111 Co2 Carbon Dioxide 27 mmol/L N 22-32 Anion Gap 6 mmol/L N 2-11 Glucose 81 mg/dL N 70-100 Blood Urea Nitrogen 12 mg/dL N 6-24 Creatinine 0.75 mg/dL N 0.51-0.95 BUN/Creatinine Ratio 16.0 N 8-20 Calcium 9.1 mg/dL N 8.6-10.3 Egfr Non- 86.5 >60 Egfr 104.6 >60 1 Urinalysis Profile 09/07/2018 [facility] Urine Color Yellow [address] [place] [address] [phone] Urine Appearance Clear Urine Specific [place] 1.021 N 1.010-1.030 Urine pH 8.0 N 5-9 Urine Urobilinogen Negative Negative Urine Ketones 1+ Abnormal Negative Urine Protein Negative Negative Urine Leukocytes Negative Negative Urine Blood Negative Negative Urine Nitrite Negative Negative Urine Bilirubin Negative Negative Urine Glucose Negative Negative CBC Auto Diff 09/07/2018 [facility] White Blood 9.3 10^3/uL N 3.5-10.[address] [place] [address] [phone] Red Blood Count 4.35 10^6/uL N 3.70-4.87 [...] Cells % 0.1 Comp Metabolic Panel 09/07/2018 [facility] Sodium 138 mmol/L N 135-[address] [place] [address] [phone] Potassium 2.8 mmol/L Low 3.5-5.0 Chloride 103 [...] Egfr 104.6 >60 2 Laboratory test 09/07/2018 [facility] Magnesium 1.9 mg/dL N 1.9-2.[address] [place] [address] [phone] Lipase < 10 U/L Low 11.0-82.0 C Reactive Protein 48.86 mg/L High <8.01 HCG < 0.60 mIU/mL 3 Lactic Acid 2.0 mmol/L N 0.5-2.0 4 Comp Metabolic Panel 03/09/2018 [facility] Sodium 139 mmol/L N 135-145 [address] [place] [address] [phone] Potassium 4.0 mmol/L N 3.5-5.0 Chloride 106 [...] Egfr 100.6 >60 5 Lipid Profile 03/09/2018 [facility] Triglycerides 233 mg/dL 6 (Trig/Chol/HDL) [address] [place] [address] [phone] Cholesterol 231 mg/dL 7 HDL Cholesterol 44.4 mg/dL 8 LDL Cholesterol 140 mg/dL 9 Laboratory test 05/14/2017 [facility] Rapid Strep Negative Negative 10 finding [address] [place] [address] [phone] Lipid Profile 03/28/2017 [facility] Triglycerides 154 mg/dL N 11 (Trig/Chol/HDL) [address] [place] [address] [phone] Cholesterol 254 mg/dL N 12 HDL Cholesterol 52.8 mg/dL N 13 LDL Cholesterol 170 mg/dL N 14 Comp Metabolic Panel 03/28/2017 [facility] Sodium 139 mmol/L N 133-[address] [place] [address] [phone] Potassium 4.1 mmol/L N 3.5-5.0 Chloride 104 [...] 102.9 N >60 15 Laboratory test 03/17/2017 [facility] Cytology SEE RESULT BELOW [address] [place] [address] [phone] HPV Rna Ww/Reflex Genotype Negative N Negative 17 Ua Routine 11/01/2016 [employer] House Ua Specific [place] 1015 Ua PH 5 Ua Color yellow Ua Appera cloudy Ua WBC positive Ua Protein normal Ua Glucose negative Ua Ketones normal Ua Bilirubin negative Ua Urobilinogen normal Ua Nitrite negative Ua Occult Blood trace Urine Culture And 11/01/2016 [facility] Urine Culture SEE RESULT [address] [place] [address] [phone] Laboratory test 06/23/2016 [facility] Vitamin D 41.1 ng/mL N 30-[address] Total 25(Oh) [place] [address] [phone] Laboratory test 04/23/2016 [facility] TSH (Thyroid 3.03 mcIU/mL N 0.34- finding [address] Stim Horm) 5.60 [place] [address] [phone] Comp Metabolic 04/23/2016 [facility] Sodium 138 mmol/L N 133- [address] [place] [address] [phone] Potassium 4.1 mmol/L N 3.5-5.0 Chloride 104 [...] N >60 19 CBC Auto Diff 04/23/2016 [facility] White Blood 7.6 10^3/uL N 3.5-10.[address] [place] [address] [phone] Red Blood Count 4.45 10^6/uL N 4.0-5.4 [...] Cells % 0 N Laboratory test 04/23/2016 [facility] Ferritin 24.2 ng/mL N 11 -[address] [place] [address] [phone] Vitamin D Total 25(Oh) 18.4 ng/mL Low 30-50 Vitamin B12 467 pg/mL N 180-914 20 Laboratory test 03/08/2016 [facility] Glucose 85 mg/dL N 70- [address] [place] [address] [phone] Lipid Profile 03/08/2016 [facility] Triglycerides 252 mg/dL N 21 (Trig/Chol/HDL) [address] [place] [address] [phone] Cholesterol 239 mg/dL N 22 HDL Cholesterol 58.2 mg/dL N 23 LDL Cholesterol 130 mg/dL N 24 Lipid Profile 01/30/2015 [facility] Triglycerides 359 mg/dL N 25 (Trig/Chol/HDL) [address] [place] [address] [phone] Cholesterol 275 mg/dL N 26 HDL Cholesterol 56.9 mg/dL N 27 LDL Cholesterol 146 mg/dL N 28 Laboratory test 01/30/2015 [facility] Glucose 87 mg/dL N 70- 100 [address] [place] [address] [phone] Throat-Beta 05/21/2014 [facility] Throat Beta Strep (SEE [address] Culture NOTE) [place] [address] [phone] Laboratory test 02/15/2014 [facility] Cytology RUN DATE: [address] 02/18/ [place] [address] <SEE [phone] NOTE> Lipid Profile 02/12/2014 [facility] Triglycerides 356 mg/dL N 32, 33 (Trig/Chol/HDL) [address] [place] [address] [phone] Cholesterol 257 mg/dL N 34 HDL Cholesterol 51.9 mg/dL N 35 LDL Cholesterol 134 mg/dL N 36 Comp Metabolic Panel 02/12/2014 [facility] Sodium 138 mmol/L N 133-[address] [place] [address] [phone] Potassium 3.8 mmol/L N 3.7-5.6 Chloride 104 [...] N >60 37 Laboratory test finding 08/03/2013 [facility] Amylase 35 U/L 29-[address] [place] [address] [phone] D Dimer Quantitative < 200 ng/mL Less Than 230 38 Throat-Beta 04/26/2013 [facility] Throat Beta Strep (SEE [address] Culture NOTE) [place] [address] [phone] Laboratory test 02/20/2013 [facility] Glucose 79 mg/dL 70-[address] [place] [address] [phone] Lipid Profile 02/20/2013 [facility] Triglycerides 240 mg/dL High 40-2 (Trig/Chol/HDL) [address] [place] [address] [phone] Cholesterol 275 mg/dL High Less than 200 HDL Cholesterol 65 mg/dL High 40-60 41 Cholesterol/HDL Ratio 4.2 Average 1-4.44 LDL Cholesterol 162.0 High Less Than 100 42 Ua Routine 12/22/2012 [employer] [facility] Ua Specific [place] 1.010 Ua PH 5 Ua Color bright orange Ua Appera clear Ua WBC trace Ua Protein 300+ Ua Glucose neg Ua Ketones neg Ua Bilirubin small Ua Urobilinogen neg Ua Nitrite neg Ua Occult Blood neg Laboratory test 08/25/2011 [facility] Cytology <SEE [address] NOTE> [place] [address] [phone] GC/Chlamydia 08/25/2011 [facility] M <SEE [address] NOTE> [place] [address] [phone] 1 Because ethnic data is not always [...] levels of up to 20 mIU/mL 4 [facility] Severe Sepsis and Septic Shock Management Bundle [...] 130-159 High: 160-189 Very High: >189 10 Tank Stave Assembler: [id number] Desirable: <150 Borderline High: 150-199 High: [...] [address]: Lucero Escalante NP Acct: [id number] Unit: [id number] AGE: 36 Location: [facility] Re03/17/17 SEX: F Status: REG REF SPEC: [id number] URSZULA: 03/17/17-[address] [facility] [address]: Lucero Escalante NP REQ: [id number] RECD: 03/18/17 STATUS: SOUT _ ORDERED: TP IMAGE ANAL, HPV/Thin Prep, HPV 16/18 GENE COMMENTS: [id number] FINAL DIAGNOSIS Negative for Intraepithelial lesion or [...] was evaluated with the assistance of the [employer] Test Imaging System. Due to cytologic findings at the information technology account manager microscope, comprehensive manual rescreening by a Millwright Helper may be required. The Pap Smear is [...] performed at Main Lab DEPARTMENT OF PATHOLOGY, [address] [place] [address] RUN DATE: 03/21/17 [facility] LAB LIVE PAGE 1 Patient: THERESA MARIE [id number] (Continued) Reece Padilla M.D. Director [facility] # [id number] 17 The high-risk HPV types detected by the assay include: 16, 18, 31, 33, 35, 39, 45, 51, 52, 56, 58, 59, 66, and 68. 18 SEE RESULT BELOW Name: THERESA MARIE : [address]: Lucero Escalante NP Acct: [id number] Unit: [id number] AGE: 36 Location: [facility] Re11/01/16 SEX: F Status: REG REF SPEC: [id number] URSZULA: 11/01/16-[address]: Lucero Escalante NP REQ: [id number] RECD: 11/01/16 STATUS: COMP _ SOURCE: URINE SPDESC: ORDERED: Urine Culture COMMENTS: [id number] Urine Source: Random Procedure Result Reported Site Urine Culture Final 11/03/16- 0723 ML Organism 1 ESCHERICHIA COLI [place] Count 50-75,000 (Many) CFU/ML 1. ESCHERICHIA COLI [...] antibiotic reporting. * ML - MAIN LAB ([facility]) . END OF REPORT * ML=Testing performed at Main Lab DEPARTMENT OF PATHOLOGY, [address] [place] [address] Reece Padilla M.D. Director [facility] # [id number] 19 Because ethnic data is not always [...] FASTING 10 HOUR 30 RUN DATE: 05/24/14 [facility] LAB LIVE PAGE 1 RUN TIME: [address] [place] [address] Specimen Inquiry Name: THERESA MARIE : [address]: Arthur Moore MD Acct: [id number] Unit: [id number] AGE: 34 Location: [facility] Re05/21/14 SEX: F Status: DEP ER SPEC: [id number] URSZULA: 05/21/14-[address] [facility] [address]: Arthur Moore MD REQ: [id number] RECD: 05/22/14-1204 STATUS: ANGEL ELIZABETH DR: Lucero Escalante POWER SYSTEM ELECTRICAL ENGINEER _ SOURCE: THROAT SPDESC: ORDERED: Throat Beta Str Procedure Result Verified Site Throat Beta Strep Culture Final 05/24/14- 842 ML Negative For Group A Beta Streptococcus END OF REPORT * ML=Testing performed at Main Lab DEPARTMENT OF PATHOLOGY, [facility] [place] [facility] [employer] [place] [address] Reece Padilla M.D. Director [facility] # [id number] 31 RUN DATE: 02/18/14 [facility] LAB LIVE PAGE 1 RUN TIME: 3533 [facility] [place] [facility] [employer] [place], [place] [address] Specimen Inquiry Name: THERESA MARIE : [address]: Lucero Escalante NP Acct: [id number] Unit: [id number] AGE: 33 Location: [facility] Re02/15/14 SEX: F Status: REG REF SPEC: [id number] URSZULA: 02/15/14-[address] [facility] [address]: Lucero Escalante POWER SYSTEM ELECTRICAL ENGINEER REQ: [id number] RECD: 02/17/14-1541 STATUS: SOUT _ ORDERED: IMAGE [...] System. Due to cytologic findings at the information technology account manager microscope, comprehensive manual rescreening by a Millwright Helper may be required. The Pap Smear is [...] performed at Main Lab DEPARTMENT OF PATHOLOGY, [address] [place] [address] Reece Padilla M.D. Director [facility] # [id number] 32 FASTING 33 Desirable <150 Borderline high [...] than 20 ug/ml 39 RUN DATE: 04/28/13 [facility] LAB LIVE PAGE 1 RUN TIME: [address] [place] [address] Specimen Inquiry Name: THERESA MARIE : [address]: Arthur Moore MD Acct: [id number] Unit: [id number] AGE: 32 Location: [facility] Re04/26/13 SEX: F Status: DEP ER SPEC: [id number] URSZULA: 04/26/[address] [facility] [address]: Arthur Moore MD REQ: [id number] RECD: 04/26/13 STATUS: COMP OTHR DR: Myrna Li MD _ SOURCE: THROAT SPDESC: ORDERED: Throat Beta Str Procedure Result Verified Site Throat Beta Strep Culture Final 04/28/13810 ML Negative For Group A Beta Streptococcus END OF REPORT * ML=Testing performed at Main Lab DEPARTMENT OF PATHOLOGY, [address] [place] [address] Reece Padilla M.D. Director [facility] Permit #[id number] 40 FASTING 10 HOUR 41 HDL Interpretation: [...] 189 mg/dL 43 ---- RUN DATE: 08/26/11 [facility] NMI LIVE PAGE 1 RUN TIME: 1331 Specimen Inquiry RUN USER: INTERFACE -- Name: THERESA MARIE Accnithya#: [id number] Status: REG REF Re08/25/11 Age/Sex: 31/F Unit#: [id number] Location: [facility] : [birth year] -- Specimen: [id number] SOUT Spec Date:08/25/[address] [facility] [address]: Myrna yRan Spec Type: CYTOLOGY Received:08/26/11 Copies to: SOURCE [...] was evaluated with the assistance of the [employer] Pap Test Imaging System. The Pap Smear [...] 133 1 -- -- DEPARTMENT OF PATHOLOGY, [address] [place] [address] [facility] Permit #[id number] Reece Padilla M.D. Director Juancarlos Hartmann M.D. Air Battle Manager Dir bita -- 44 RUN DATE: 08/27/11 [facility] NMI LIVE PAGE 1 RUN TIME: 7676 Specimen Inquiry RUN USER: INTERFACE Name: THERESA MARIE Status: REG REF Re08/25/11 Age/Sex: 31/F Unit#: [id number] Location: [facility] : 80 SPEC #: [id number] URSZULA: 08/25/11 STATUS: COMP REQ #: [id number] RECD: 08/25/[address]: Myrna Li MD SOURCE: ENDOCERVIX ENTR: 08/25/[address]: JOAN: ORDERED: GC/CHL APTIMA QUERIES: MEDENT REQUISITION # [id number] ACT WKST: GCCHL 08/27/11 #1 Procedure Result [...] result may have adverse psychosocial impact, the [facility] recommends retesting by a method using an [...] than a true positive. DEPARTMENT OF PATHOLOGY, [address] [place] [address] [facility] Permit #[id number] Ramírez Ovalles M.D. Magazine Grinder Loader RUN DATE: 08/27/11 [facility] NMI LIVE PAGE 2 RUN TIME: 1358 Specimen Inquiry RUN USER: INTERFACE Name: THERESA MARIE Status: REG REF Re08/25/11 Age/Sex: 31/F Unit#: [id number] Location: [facility] : 80 -- -- CONTINU ED [...] may be higher than a true positive. [facility] Permit #[id number] [address] [place] [address] DEPARTMENT OF PATHOLOGY, [address] [place] [address] [facility] Permit #[id number] Reece Padilla M.D. Director Juancarlos Hartmann M.D. Magazine Grinder Loader Procedures Date Code Description Status 04/27/2016 [id number] Mammogram Completed Encounters Type Date Location Provider Dx Diagnosis Office Visit 09/12/2018 [facility] Internal Lucero Escalante, R11.2 Nausea with 4:00p Medicine - [facility] N.P. vomiting, unspecified Office Visit 06/15/2018 [facility] Internal Lucero Escalante, L03.032 Cellulitis of left 11:00a Medicine - [facility] N.P. toe Office Visit 05/19/2018 Leticia Escalante L60.0 Ingrowing nail 10:20a Internal N.P. Medicine-Arrowwo od Office Visit 03/21/2018 [facility] Internal Lucero Escalante, Z00.00 Encntr for general 9:20a Medicine - [facility] N.P. adult medical exam w/o abnormal findings E78.00 Pure hypercholesterolemia, unspecified Z23 Encounter for immunization Office Visit 10/31/2017 11:40a [facility] Internal Valeriano Simental01.90 Acute sinusitis, Medicine - N.P. unspecified [facility] Office Visit 08/15/2017 2:40p [facility] Internal Jigar Martinez NP H81.10 Benign paroxysmal Medicine - vertigo, [facility] unspecified ear Office Visit 05/25/2017 1:40p [employer] [facility] Valeriano Pop01.90 Acute sinusitis, Internal MKim unspecified Medicine-Arroww ood Office Visit 03/17/2017 9:00a [facility] Internal Lucero Escalante, Z00.01 Encounter for Medicine - N.P. general adult [facility] medical exam w abnormal findings E78.00 Pure hypercholesterolemia, unspecified J30.9 Allergic rhinitis, unspecified Z11.51 Encounter for screening for human papillomavirus (HPV) Z23 Encounter for immunization Z00.00 Encntr for general adult medical exam w/o abnormal findings Office Visit 11/01/2016 10:20a [facility] Internal Lucero Escalante, N39.0 Urinary tract Medicine - N.P. infection, site [facility] not specified Office Visit 05/19/2016 3:20p [facility] Internal Lucero Escalante J01.00 Acute maxillary Medicine - N.P. sinusitis, [facility] unspecified Office Visit 04/23/2016 9:40a [facility] Internal Lucero Escalante, R53.81 Other malaise Medicine - N.P. [facility] Office Visit 03/15/2016 1:40p [facility] Internal Lucero Escalante, Z00.01 Encounter for Medicine - N.P. general adult [facility] medical exam w abnormal findings Z12.31 Encntr screen mammogram for malignant neoplasm of breast E78.00 Pure hypercholesterolemia, unspecified J30.9 Allergic rhinitis, unspecified Z23 Encounter for immunization Office Visit 10/21/2015 [facility] Internal Dulce H10.9 Unspecified 11:20a Isai Cm M.D. conjunctivitis [facility] Office Visit 10/14/2015 [facility] Internal Lucero Escalante, J06.9 Acute upper 9:40a Medicine - N.P. respiratory [facility] infection, unspecified Office Visit 04/11/2015 [facility] Internal Lucero Escalante, J01.00 Acute maxillary 1:20p Medicine - N.P. sinusitis, [facility] unspecified Office Visit 02/25/2015 [facility] Internal Lucero Escalante, R21 Rash and other 11:40a Medicine - N.P. nonspecific skin [facility] eruption Office Visit 02/17/2015 [facility] Internal Lucero Escalante, J01.00 Acute maxillary 2:20p Medicine - N.P. sinusitis, [facility] unspecified Office Visit 02/06/2015 [facility] Internal Gerardo Gaviria, V70.0 Examination General 10:00a Medicine - POWER SYSTEM ELECTRICAL ENGINEER Medical Routine AT [facility] R [facility] V72.31 Routine Manager Social Work Examination 272.2 Hyperlipidemia Mixed 706.1 Acne Other V25.09 Contraceptive Management Other V04.81 Need For Prophylactic Vaccination & Inoculation/Influenza 305.1 Tobacco Use Disorder Office Visit 06/18/2014 4:20p [facility] Internal Lucero Escalante, 461.9 Sinusitis Acute Medicine - N.P. Unspec [facility] Office Visit 04/24/2014 9:30a [facility] Internal Jigar Martinez POWER SYSTEM ELECTRICAL ENGINEER 465.9 URI Upper Medicine - Respiratory [facility] Infections Acute Unspec Sites Office Visit 02/15/2014 10:40a [facility] Internal Lucero Escalante, V70.0 Examination Medicine - N.P. General Medical [facility] Routine AT [facility] V72.31 Routine Manager Social Work Examination 305.1 Tobacco Use Disorder V04.81 Need For Prophylactic Vaccination & Inoculation/Influenza 272.4 Hyperlipidemia Other Unspec 706.1 Acne Other Office Visit 08/03/2013 9:40a [facility] Internal Lucero Escalante, 789.01 Pain Abdominal Medicine - N.P. Right Upper [facility] Quadrant Office Visit 06/28/2013 11:20a [facility] Internal Lucero Escalante, 465.9 URI Upper Medicine - N.P. Respiratory [facility] Infections Acute Unspec Sites Office Visit 02/14/2013 2:00p [facility] Corky Li, 305.1 Tobacco Use Medicine - M.D. Disorder [facility] 477.9 Rhinitis Allergic Cause Unspec V70.0 Examination General Medical Routine AT [facility] V25.09 Contraceptive Management Other Office Visit 12/22/2012 2:20p [facility] Corky Li, 789.01 Pain Abdominal Medicine - [facility] M.D. Right Upper Quadrant 305.1 Tobacco Use Disorder 733.6 Tietzes Disease 787.03 Vomiting Alone Office Visit 07/28/2012 1:20p [facility] Corky Escalante, 787.03 Vomiting Alone Medicine - [facility] N.P. Office Visit 07/07/2012 11:20a [facility] Corky Li, 305.1 Tobacco Use Medicine - [facility] M.D. Disorder 473.8 Sinusitis Chronic Other Office Visit 03/28/2012 10:40a [facility] Internal Lucero Escalante, 461.9 Sinusitis Acute Medicine - [facility] N.P. Unspec Office Visit 01/07/2012 2:00p [facility] Internal Myrna Guillermo, 305.1 Tobacco [facility] V25.09 Contraceptive Management Other Office Visit 11/03/2011 11:20a [facility] Internal Lucero Escalante, 733.6 Tietzes Disease Medicine - N.P. [facility] Office Visit 08/25/2011 10:00a [facility] Internal Myrna Li, V72.31 Routine Manager Social Work Medicine - M.D. Examination [facility] V76.2 Screening Malignant Neoplasm Cervix 305.1 Tobacco Use Disorder Plan of Treatment Future Appointment(s):03/22/2019 10:00 am - Lucero Escalante N.P. at [facility] Internal [facility] - Lucero Escalante N.P.R11.2 Nausea with [...] referring you to a GI specialist.Referral:Arlene Marie, POWER SYSTEM ELECTRICAL ENGINEER, Family/POWER SYSTEM ELECTRICAL ENGINEER
--- OUTSIDE RECORDS SUMMARY | 2018-11-30 13:09 | XMS REPORT | Continuity of Care Document ---
:1980 External Reference #:[id number] Author Name Geneva Polo Care Team Providers Name Role Phone Lucero Escalante NP Care Team Information Hacksaw Inspector Unavailable Lucero Escalante NP Primary Care Physician Unavailable Payers Date Identification Numbers Payment Provider Subscriber Policy Number: [id number] [employer] Theresa Betancourt PayID: [id number] [address] [address] [place] [address] Problems Active Problems Provider Date Allergic urticaria [...] Date Mometasone Furoate Use 2 Sprays 17units Huan Nieves 06/26/2018 In Each MD [facility] 50mcg/Act Suspension Nostril Once Daily Levocetirizine Take One 30tabs Huan Nieves 06/26/2018 Dihydrochloride Tablet By MD [facility] 5mg Mouth Once Tablets Daily as Needed Nasonex spray 2 sprays 17units J30.1 Huan Nieves 04/09/2015 50mcg/Act into each MD [facility]rell Suspension nostril once daily. Benadryl Allergy Unknown 25mg Capsules Vitamin D-3 Unknown Multivitamin/Fluoride Unknown 0.25mg Chewtabs Cranberry Unknown 400mg Capsules Omeprazole Lucero Escalante NP 20mg Capsules Ondansetron Unknown 4mg Tablets Dispers History Medications Xyzal Allergy 24HR Take One Tablet 30tabs J30.1 Huan Nieves 11/09/2017 - By Mouth Once MD Terrell 11/10/2018 5mg Tablets Daily as Needed Xyzal Take One Tablet 30tabs J30.1 Huan Nieves 04/09/2015 - 5mg Tablets By Mouth Once MD eTrrell 11/09/2017 Daily as Needed Pimtrea Unknown - [...] /min Procedures Date Code Description Status 03/28/2015 80553 Ingestion Challenge Test Sequential & Incremental Completed 03/28/2015 66892 Ingestion Challenge Test Sequential & Incremental Completed 03/19/2015 72984 Allergy Testing Any Combination Of Percutaneous W/Drugs Completed Encounters Type Date Location Provider Dx Diagnosis Office Visit 11/09/2017 Anurag Albrecht.1 Allergic rhinitis 8:30a MD due to pollen J30.89 Other allergic rhinitis Office Visit 11/10/2016 9:30a Anurag Albrecht.1 Allergic rhinitis MD due to pollen J30.89 Other allergic rhinitis L50.0 Allergic urticaria Office Visit 10/29/2015 10:00a Anurag Albrecht.1 Allergic rhinitis MD due to pollen J30.89 Other allergic rhinitis Office Visit 04/23/2015 2:30p Valeriano Albrecht30.1 Allergic rhinitis MD due to pollen J30.89 Other allergic rhinitis Z88.0 Allergy status to penicillin Office Visit 04/09/2015 1:30p Anurag Albrecht.1 Allergic rhinitis MD due to pollen J30.89 Other allergic rhinitis Office Visit 03/19/2015 9:15a [place] H[place], Z88.0 Allergy status to MD lambert Z88.9 Allergy status to unsp drug/meds/biol subst status Plan of Treatment 11/09/2017 - Huan Tejada MDJ30.1 Allergic rhinitis due to pollenNew Medication:Xyzal Allergy 24HR 5 mg - Take One Tablet By Mouth Once Daily as NxdxrjC48.89 Other allergic rhinitis
--- OUTSIDE RECORDS SUMMARY | 2018-11-30 13:09 | XMS REPORT | Continuity of Care Document ---
:1980 External Reference #:[id number] Author Name Stacey Titus Care Team Providers Name Role Phone Dulce Cm MD Primary Care Physician Unavailable Payers Date Identification Numbers Payment Provider Subscriber Effective: 2013 Policy Number: [id number] BS Facets Tehresa Marie PayID: [id number] [address] [address] [place] [address] Effective: 2010 Policy Number: [id number] BS Facets Theresa Marie Expires: 2013 PayID: [id number] [address] [address] [place] [address] Problems Active Problems Provider Date Mixed hypercholesterolemia and Gerardo Gaviria NP Onset: 01/30/2015 hypertriglyceridemia Resolved Problems Tobacco user Myrna Li M.D. Onset: 08/25/2011 Resolved: 05/25/2017 Family History Date Family Member(s) Observation Comments Father [place] (age 50's),Stents, HTN, Hyperlipidemia Age 66 Mother [...] by mouth 8caps Lucero Escalante, 04/26/2016 - [id number] once weekly N.P. 06/25/2016 Capsules Tobramycin 2 [...] (2 Tablets Cryselle-28 1 po qd 1tabs Myran Li, - M.D. 02/28/2012 0.3-30mg-mcg Tablets Kariva [...] Code Status Date Vaccine Reaction Lot # [id number] Given 03/21/2018 Influenza Virus Vaccine, [id number] Quadrivalent, Split, Preservative Free 47958 Given 03/17/2017 Influenza Virus Vaccine, [id number] Quadrivalent, Split, Preservative Free 71274 Given 03/15/2016 Influ Virus Vaccine, no reaction noted ... [id number] Quadrivalent, Split Virus, [place] [address] Given 02/06/2015 Influenza Virus Vaccine, [id number] Quadrivalent, Split, Preservative Free 31772 Given 02/15/2014 Influenza Virus Vaccine, [id number] Quadrivalent, Split, Preservative Free 68573 Given 03/14/2013 Tdap - Tetanus/Diptheria/Acellular Pertussis 21467 Given 03/14/2013 Tdap - [id number] Tetanus/Diptheria/Acellular Pertussis 18236 Given 03/14/2013 Flu Vaccine Split Virus [id number] Preservative Free For Indiv 3Yr Older Vital [...] Result H/L Range Note Basic Metabolic 09/12/2018 [facility] Sodium 140 mmol/L N 135- [address] [place] [address] [phone] Potassium 3.9 mmol/L N 3.5-5.0 Chloride 107 mmol/L N 101-111 Co2 Carbon Dioxide 27 mmol/L N 22-32 Anion Gap 6 mmol/L N 2-11 Glucose 81 mg/dL N 70-100 Blood Urea Nitrogen 12 mg/dL N 6-24 Creatinine 0.75 mg/dL N 0.51-0.95 BUN/Creatinine Ratio 16.0 N 8-20 Calcium 9.1 mg/dL N 8.6-10.3 Egfr Non- 86.5 >60 Egfr 104.6 >60 1 Urinalysis Profile 09/07/2018 [facility] Urine Color Yellow [address] [place] [address] [phone] Urine Appearance Clear Urine Specific [place] 1.021 N 1.010-1.030 Urine pH 8.0 N 5-9 Urine Urobilinogen Negative Negative Urine Ketones 1+ Abnormal Negative Urine Protein Negative Negative Urine Leukocytes Negative Negative Urine Blood Negative Negative Urine Nitrite Negative Negative Urine Bilirubin Negative Negative Urine Glucose Negative Negative CBC Auto Diff 09/07/2018 [facility] White Blood 9.3 10^3/uL N 3.5-10.[address] [place] [address] [phone] Red Blood Count 4.35 10^6/uL N 3.70-4.87 [...] Cells % 0.1 Comp Metabolic Panel 09/07/2018 [facility] Sodium 138 mmol/L N 135-[address] [place] [address] [phone] Potassium 2.8 mmol/L Low 3.5-5.0 Chloride 103 [...] Egfr 104.6 >60 2 Laboratory test 09/07/2018 [facility] Magnesium 1.9 mg/dL N 1.9-2.[address] [place] [address] [phone] Lipase < 10 U/L Low 11.0-82.0 C Reactive Protein 48.86 mg/L High <8.01 HCG < 0.60 mIU/mL 3 Lactic Acid 2.0 mmol/L N 0.5-2.0 4 Comp Metabolic Panel 03/09/2018 [facility] Sodium 139 mmol/L N 135-145 [address] [place] [address] [phone] Potassium 4.0 mmol/L N 3.5-5.0 Chloride 106 [...] Egfr 100.6 >60 5 Lipid Profile 03/09/2018 [facility] Triglycerides 233 mg/dL 6 (Trig/Chol/HDL) [address] [place] [address] [phone] Cholesterol 231 mg/dL 7 HDL Cholesterol 44.4 mg/dL 8 LDL Cholesterol 140 mg/dL 9 Laboratory test 05/14/2017 [facility] Rapid Strep Negative Negative 10 finding [address] [place] [address] [phone] Lipid Profile 03/28/2017 [facility] Triglycerides 154 mg/dL N 11 (Trig/Chol/HDL) [address] [place] [address] [phone] Cholesterol 254 mg/dL N 12 HDL Cholesterol 52.8 mg/dL N 13 LDL Cholesterol 170 mg/dL N 14 Comp Metabolic Panel 03/28/2017 [facility] Sodium 139 mmol/L N 133-[address] [place] [address] [phone] Potassium 4.1 mmol/L N 3.5-5.0 Chloride 104 [...] 102.9 N >60 15 Laboratory test 03/17/2017 [facility] Cytology SEE RESULT BELOW [address] [place] [address] [phone] HPV Rna Ww/Reflex Genotype Negative N Negative 17 Ua Routine 11/01/2016 [employer] In House Ua Specific [place] 1015 Ua PH 5 Ua Color yellow Ua Appera cloudy Ua WBC positive Ua Protein normal Ua Glucose negative Ua Ketones normal Ua Bilirubin negative Ua Urobilinogen normal Ua Nitrite negative Ua Occult Blood trace Urine Culture And 11/01/2016 [facility] Urine Culture SEE RESULT [address] [place] [address] [phone] Laboratory test 06/23/2016 [facility] Vitamin D 41.1 ng/mL N 30-[address] Total 25(Oh) [place] [address] [phone] Laboratory test 04/23/2016 [facility] TSH (Thyroid 3.03 mcIU/mL N 0.34- finding [address] Stim Horm) 5.60 [place] [address] [phone] Comp Metabolic 04/23/2016 [facility] Sodium 138 mmol/L N 133- [address] [place] [address] [phone] Potassium 4.1 mmol/L N 3.5-5.0 Chloride 104 [...] N >60 19 CBC Auto Diff 04/23/2016 [facility] White Blood 7.6 10^3/uL N 3.5-10.[address] [place] [address] [phone] Red Blood Count 4.45 10^6/uL N 4.0-5.4 [...] Cells % 0 N Laboratory test 04/23/2016 [facility] Ferritin 24.2 ng/mL N 11 -[address] [place] [address] [phone] Vitamin D Total 25(Oh) 18.4 ng/mL Low 30-50 Vitamin B12 467 pg/mL N 180-914 20 Laboratory test 03/08/2016 [facility] Glucose 85 mg/dL N 70- [address] [place] [address] [phone] Lipid Profile 03/08/2016 [facility] Triglycerides 252 mg/dL N 21 (Trig/Chol/HDL) [address] [place] [address] [phone] Cholesterol 239 mg/dL N 22 HDL Cholesterol 58.2 mg/dL N 23 LDL Cholesterol 130 mg/dL N 24 Lipid Profile 01/30/2015 [facility] Triglycerides 359 mg/dL N 25 (Trig/Chol/HDL) [address] [place] [address] [phone] Cholesterol 275 mg/dL N 26 HDL Cholesterol 56.9 mg/dL N 27 LDL Cholesterol 146 mg/dL N 28 Laboratory test 01/30/2015 [facility] Glucose 87 mg/dL N 70- 100 [address] [place] [address] [phone] Throat-Beta 05/21/2014 [facility] Throat Beta Strep (SEE [address] Culture NOTE) [place] [address] [phone] Laboratory test 02/15/2014 [facility] Cytology RUN DATE: [address] 02/18/ [place] [address] <SEE [phone] NOTE> Lipid Profile 02/12/2014 [facility] Triglycerides 356 mg/dL N 32, 33 (Trig/Chol/HDL) [address] [place] [address] [phone] Cholesterol 257 mg/dL N 34 HDL Cholesterol 51.9 mg/dL N 35 LDL Cholesterol 134 mg/dL N 36 Comp Metabolic Panel 02/12/2014 [facility] Sodium 138 mmol/L N 133-[address] [place] [address] [phone] Potassium 3.8 mmol/L N 3.7-5.6 Chloride 104 [...] N >60 37 Laboratory test finding 08/03/2013 [facility] Amylase 35 U/L 29-[address] [place] [address] [phone] D Dimer Quantitative < 200 ng/mL Less Than 230 38 Throat-Beta 04/26/2013 [facility] Throat Beta Strep (SEE [address] Culture NOTE) [place] [address] [phone] Laboratory test 02/20/2013 [facility] Glucose 79 mg/dL 70-[address] [place] [address] [phone] Lipid Profile 02/20/2013 [facility] Triglycerides 240 mg/dL High 40-2 (Trig/Chol/HDL) [address] [place] [address] [phone] Cholesterol 275 mg/dL High Less than 200 HDL Cholesterol 65 mg/dL High 40-60 41 Cholesterol/HDL Ratio 4.2 Average 1-4.44 LDL Cholesterol 162.0 High Less Than 100 42 Ua Routine 12/22/2012 [employer] In House Ua Specific [place] 1.010 Ua PH 5 Ua Color bright orange Ua Appera clear Ua WBC trace Ua Protein 300+ Ua Glucose neg Ua Ketones neg Ua Bilirubin small Ua Urobilinogen neg Ua Nitrite neg Ua Occult Blood neg Laboratory test 08/25/2011 [facility] Cytology <SEE [address] NOTE> [place] [address] [phone] GC/Chlamydia 08/25/2011 [facility] M <SEE [address] NOTE> [place] [address] [phone] 1 Because ethnic data is not always [...] levels of up to 20 mIU/mL 4 [facility] Severe Sepsis and Septic Shock Management Bundle [...] 130-159 High: 160-189 Very High: >189 10 Thread Milling Machine Set Up Operator: [id number] Desirable: <150 Borderline High: 150-199 High: [...] [address]: Lucero Escalante NP Acct: [id number] Unit: [id number] AGE: 36 Location: [facility] Re03/17/17 SEX: F Status: REG REF SPEC: [id number] URSZULA: 03/17/17-[address] [facility] [address]: Lucero Escalante NP REQ: [id number] RECD: 03/18/17 STATUS: SOUT _ ORDERED: TP IMAGE ANAL, HPV/Thin Prep, HPV 16/18 GENE COMMENTS: [id number] FINAL DIAGNOSIS Negative for Intraepithelial lesion or [...] was evaluated with the assistance of the [employer] Test Imaging System. Due to cytologic findings at the surgical coordinator microscope, comprehensive manual rescreening by a Paper Bag Inspector may be required. The Pap Smear is [...] performed at Main Lab DEPARTMENT OF PATHOLOGY, [address] [place] [address] RUN DATE: 03/21/17 [facility] LAB LIVE PAGE 1 Patient: THERESA MARIE [id number] (Continued) Reece Padilla M.D. Director [facility] # [id number] 17 The high-risk HPV types detected by the assay include: 16, 18, 31, 33, 35, 39, 45, 51, 52, 56, 58, 59, 66, and 68. 18 SEE RESULT BELOW Name: THERESA MARIE : [address]: Lucero Escalante NP Acct: [id number] Unit: [id number] AGE: 36 Location: [facility] Re11/01/16 SEX: F Status: REG REF SPEC: [id number] URSZULA: 11/01/16-[address]: Lucero Escalante NP REQ: [id number] RECD: 11/01/16 STATUS: COMP _ SOURCE: URINE SPDESC: ORDERED: Urine Culture COMMENTS: [id number] Urine Source: Random Procedure Result Reported Site Urine Culture Final 11/03/16- 0723 ML Organism 1 ESCHERICHIA COLI Hallie Count 50-75,000 (Many) CFU/ML 1. ESCHERICHIA COLI [...] antibiotic reporting. * ML - MAIN LAB ([facility]) . END OF REPORT * ML=Testing performed at Main Lab DEPARTMENT OF PATHOLOGY, [address] [place] [address] Reece Padilla M.D. Director [facility] # [id number] 19 Because ethnic data is not always [...] FASTING 10 HOUR 30 RUN DATE: 05/24/14 [facility] LAB LIVE PAGE 1 RUN TIME: [address] [place] [address] Specimen Inquiry Name: THERESA MARIE : [address]: Arthur Moore MD Acct: [id number] Unit: [id number] AGE: 34 Location: [facility] Re05/21/14 SEX: F Status: DEP ER SPEC: [id number] URSZULA: 05/21/14-[address] [facility] [address]: Arthur Moore MD REQ: [id number] RECD: 05/22/14-1204 STATUS: ANGEL ELIZABETH DR: Lucero Escalante RUBBER LINER _ SOURCE: THROAT SPDESC: ORDERED: Throat Beta Str Procedure Result Verified Site Throat Beta Strep Culture Final 05/24/14- 842 ML Negative For Group A Beta Streptococcus END OF REPORT * ML=Testing performed at Main Lab DEPARTMENT OF PATHOLOGY, [facility] Guide [place] [address] Reece Padilla M.D. Director [facility] # [id number] 31 RUN DATE: 02/18/14 [facility] LAB LIVE PAGE 1 RUN TIME: 1353 [facility] [employer] [place], [place] [address] Specimen Inquiry Name: THERESA MARIE : [address]: Lucero Escalante NP Acct: [id number] Unit: [id number] AGE: 33 Location: [facility] Re02/15/14 SEX: F Status: REG REF SPEC: [id number] URSZULA: 02/15/14-[address] [facility] [address]: Lucero Escalante RUBBER LINER REQ: [id number] RECD: 02/17/14-1541 STATUS: SOUT _ ORDERED: IMAGE [...] System. Due to cytologic findings at the surgical coordinator microscope, comprehensive manual rescreening by a Paper Bag Inspector may be required. The Pap Smear is [...] performed at Main Lab DEPARTMENT OF PATHOLOGY, [address] [place] [address] Reece Padilla M.D. Director [facility] # [id number] 32 FASTING 33 Desirable <150 Borderline high [...] than 20 ug/ml 39 RUN DATE: 04/28/13 [facility] LAB LIVE PAGE 1 RUN TIME: [address] [place] [address] Specimen Inquiry Name: THERESA MARIE : [address]: Arthur Moore MD Acct: [id number] Unit: [id number] AGE: 32 Location: [facility] Re04/26/13 SEX: F Status: DEP ER SPEC: [id number] URSZULA: 04/26/[address] [facility] [address]: Arthur Moore MD REQ: [id number] RECD: 04/26/13 STATUS: COMP OTHR DR: Myrna Li MD _ SOURCE: THROAT SPDESC: ORDERED: Throat Beta Str Procedure Result Verified Site Throat Beta Strep Culture Final 04/28/13810 ML Negative For Group A Beta Streptococcus END OF REPORT * ML=Testing performed at Main Lab DEPARTMENT OF PATHOLOGY, [address] [place] [address] Reece Padilla M.D. Director [facility] Permit #[id number] 40 FASTING 10 HOUR 41 HDL Interpretation: [...] 189 mg/dL 43 ---- RUN DATE: 08/26/11 [facility] NMI LIVE PAGE 1 RUN TIME: 1331 Specimen Inquiry RUN USER: INTERFACE -- Name: THERESA MARIE Accnithya#: [id number] Status: REG REF Re08/25/11 Age/Sex: 31/F Unit#: [id number] Location: [facility] : [birth year] -- Specimen: [id number] SOUT Spec Date:08/25/[address] [facility] Dr: Myrna Ryan Spec Type: CYTOLOGY [...] was evaluated with the assistance of the [employer]Prep Pap Test Imaging System. The Pap Smear [...] 133 1 -- -- DEPARTMENT OF PATHOLOGY, [address] [place] [address] [facility] Permit #[id number] Reece Padilla M.D. Director Juancarlos Hartmann M.D. Economics Analyst Dir bita -- 44 RUN DATE: 08/27/11 [facility] NMI LIVE PAGE 1 RUN TIME: 2638 Specimen Inquiry RUN USER: INTERFACE Name: THERESA MARIE Status: REG REF Re08/25/11 Age/Sex: 31/F Unit#: [id number] Location: [facility] : [birth year] SPEC #: [id number] URSZULA: 08/25/11 STATUS: COMP REQ #: [id number] RECD: 08/25/[address]: Myrna Li MD SOURCE: ENDOCERVIX ENTR: 08/25/[address]: JOAN: ORDERED: GC/CHL APTIMA QUERIES: MEDENT REQUISITION # [id number] ACT WKST: [facility] 08/27/11 #1 Procedure Result [...] result may have adverse psychosocial impact, the [facility] recommends retesting by a method using an [...] than a true positive. DEPARTMENT OF PATHOLOGY, [address] [place] [address] [facility] Permit #[id number] Ramírez Ovalles M.D. Chute Tapper RUN DATE: 08/27/11 [facility] NMI LIVE PAGE 2 RUN TIME: 1358 Specimen Inquiry RUN USER: INTERFACE Name: THERESA MARIE Status: REG REF Re08/25/11 Age/Sex: 31/F Unit#: [id number] Location: [facility] : 80 -- -- CONTINU [...] may be higher than a true positive. [facility] Permit #[id number] [address] [place] [address] DEPARTMENT OF PATHOLOGY, [address] [place] [address] [facility] Permit #[id number] Reece Padilla M.D. Director Juancarlos Hartmann M.D. Chute Tapper Procedures Date Code Description Status 04/27/2016 [id number] Mammogram Completed Encounters Type Date Location Provider Dx Diagnosis Office Visit 09/12/2018 [facility] Internal Lucero Escalante, R11.2 Nausea with 4:00p Medicine - Ccmob N.P. vomiting, unspecified Office Visit 06/15/2018 [facility] Internal Lucero Escalante, L03.032 Cellulitis of left 11:00a Medicine - Ccmob N.P. toe Office Visit 05/19/2018 Leticia Escalante L60.0 Ingrowing nail 10:20a Internal N.P. Medicine-Arrowwo od Office Visit 03/21/2018 [facility] Internal Lucero Escalante, Z00.00 Encntr for general 9:20a Medicine - Ccmob N.P. adult medical exam w/o abnormal findings E78.00 Pure hypercholesterolemia, unspecified Z23 Encounter for immunization Office Visit 10/31/2017 11:40a [facility] Internal Valeriano Simental01.90 Acute sinusitis, Medicine - N.P. unspecified Ccmob Office Visit 08/15/2017 2:40p [facility] Internal Jigar Martinez NP H81.10 Benign paroxysmal Medicine - vertigo, Ccmob unspecified ear Office Visit 05/25/2017 1:40p [employer] [facility] Valreiano Pop01.90 Acute sinusitis, Internal MKim unspecified Medicine-Arroww ood Office Visit 03/17/2017 9:00a [facility] Internal Lucero Escalante, Z00.01 Encounter for Medicine - N.P. general adult Ccmob medical exam w abnormal findings E78.00 Pure hypercholesterolemia, unspecified J30.9 Allergic rhinitis, unspecified Z11.51 Encounter for screening for human papillomavirus (HPV) Z23 Encounter for immunization Z00.00 Encntr for general adult medical exam w/o abnormal findings Office Visit 11/01/2016 10:20a [facility] Internal Lucero Escalante, N39.0 Urinary tract Medicine - N.P. infection, site Ccmob not specified Office Visit 05/19/2016 3:20p [facility] Internal Lucero Escalante J01.00 Acute maxillary Medicine - N.P. sinusitis, Ccmob unspecified Office Visit 04/23/2016 9:40a [facility] Internal Lucero Escalante, R53.81 Other malaise Medicine - N.P. Ccmob Office Visit 03/15/2016 1:40p [facility] Internal Lucero Escalante, Z00.01 Encounter for Medicine - N.P. general adult Ccmob medical exam w abnormal findings Z12.31 Encntr screen mammogram for malignant neoplasm of breast E78.00 Pure hypercholesterolemia, unspecified J30.9 Allergic rhinitis, unspecified Z23 Encounter for immunization Office Visit 10/21/2015 [facility] Internal Dulce H10.9 Unspecified 11:20a Isai Cm M.D. conjunctivitis Ccmob Office Visit 10/14/2015 [facility] Internal Lucero Escalante, J06.9 Acute upper 9:40a Medicine - N.P. respiratory Ccmob infection, unspecified Office Visit 04/11/2015 [facility] Internal Lucero Escalante, J01.00 Acute maxillary 1:20p Medicine - N.P. sinusitis, Ccmob unspecified Office Visit 02/25/2015 [facility] Internal Lucero Escalante, R21 Rash and other 11:40a Medicine - N.P. nonspecific skin Ccmob eruption Office Visit 02/17/2015 [facility] Internal Lucero Escalante, J01.00 Acute maxillary 2:20p Medicine - N.P. sinusitis, Ccmob unspecified Office Visit 02/06/2015 [facility] Internal Gerardo Gaviria, V70.0 Examination General 10:00a Medicine - RUBBER LINER Medical Routine AT [facility] R 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 Unspec Ccmob Office Visit 04/24/2014 9:30a [facility] Internal Jigar Martinez RUBBER LINER 465.9 URI Upper Medicine - Respiratory Ccmob Infections Acute Unspec Sites Office Visit 02/15/2014 10:40a [facility] Internal Lucero Escalante, V70.0 Examination Medicine - N.P. General Medical Ccmob Routine AT [facility] V72.31 Routine [employer] Animal Caretaker Examination 305.1 Tobacco Use Disorder V04.81 Need For Prophylactic Vaccination & Inoculation/Influenza 272.4 Hyperlipidemia Other Unspec 706.1 Acne Other Office Visit 08/03/2013 9:40a [facility] Internal Lucero Escalante, 789.01 Pain Abdominal Medicine - N.P. Right Upper Ccmob Quadrant Office Visit 06/28/2013 11:20a [facility] Internal Lucero Escalante, 465.9 URI Upper Medicine - N.P. Respiratory Ccmob Infections Acute Unspec Sites Office Visit 02/14/2013 2:00p [facility] Corky Li, 305.1 Tobacco Use Medicine - M.D. Disorder Ccmob 477.9 Rhinitis Allergic Cause Unspec V70.0 Examination General Medical Routine AT [facility] V25.09 Contraceptive Management Other Office Visit 12/22/2012 2:20p [facility] Corky Li, 789.01 Pain Abdominal Medicine - Ccmob M.D. Right Upper Quadrant 305.1 Tobacco Use Disorder 733.6 Tietzes Disease 787.03 Vomiting Alone Office Visit 07/28/2012 1:20p [facility] Corky Escalante, 787.03 Vomiting Alone Medicine - Ccmob N.P. Office Visit 07/07/2012 11:20a [facility] Corky Li, 305.1 Tobacco Use Medicine - Ccmob M.D. Disorder 473.8 Sinusitis Chronic Other Office Visit 03/28/2012 10:40a [facility] Internal Lucero Escalante, 461.9 Sinusitis Acute Medicine - Ccmob N.P. Unspec Office Visit 01/07/2012 2:00p [facility] Internal Myrna Guillermo, 305.1 [facility] V25.09 Contraceptive Management Other Office Visit 11/03/2011 11:20a [facility] Internal Lucero Escalante, 733.6 Tietzes Disease Medicine - N.P. Ccmob Office Visit 08/25/2011 10:00a [facility] Internal Myrna Li, V72.31 Routine [employer] Animal Caretaker Medicine - M.D. Examination [facility] V[facility].2 Screening Malignant Neoplasm Cervix 305.1 Tobacco Use Disorder Plan of Treatment Future Appointment(s):03/22/2019 10:00 am - Lucero Escalante N.P. at [facility] - Lucero Escalante N.P.R11.2 Nausea with vomiting, [...] referring you to a GI specialist.Referral:Arlene Marie, RUBBER LINER, Family/RUBBER LINER
[2018-11-30 14:44] LABS: ABS Eosinophils 0.1 10^3/ul (0-0.6); ABS Lymphocytes 1.9 10^3/ul (1.0-4.8); ABS Monocytes 0.5 10^3/ul (0-0.8); Eosinophil % 0.9 %; Hematocrit 38 % (35-47); Hemoglobin 12.8 g/dL (12.0-16.0); Lymphocyte % 24.9 %; Mean Corpuscular HGB Conc 34 g/dL (31-36); Mean Corpuscular Hemoglobin 31 pg (27-31); Mean Corpuscular Volume 90 fL (80-97); Mean Platelet Volume 8.2 fL (7.4-10.4); Platelet Count 257 10^3/uL (150-450); Red Blood Count 4.18 10^6 /uL (3.70-4.87); Red Cell Distribution Width 12 % (10-15); White Blood Count 7.5 10^3/uL (3.5-10.8)
[2018-11-30 14:59] LABS: ALT 16 U/L (7-52); AST 18 U/L (13-39); Albumin 4.1 g/dL (3.2-5.2); Albumin/Globulin Ratio 1.3 (1-3); Alkaline Phosphatase 78 U/L (34-104); Anion Gap 7 mmol/L (2-11); Blood Urea Nitrogen 9 mg/dL (6-24); C Reactive Protein 179.95 mg/L (<8.01); CO2 Carbon Dioxide 28 mmol/L (22-32); Calcium 9.5 mg/dL (8.6-10.3); Chloride 103 mmol/L (101-111); EGFR African American 94.4 (>60); Globulin 3.1 g/dL (2-4); Glucose 93 mg/dL (70-100); Potassium 3.5 mmol/L (3.5-5.0); Sodium 138 mmol/L (135-145); Total Protein 7.2 g/dL (6.4-8.9)
[2018-11-30 15:02] LABS: HCG Pregnancy < 0.60 mIU/mL
--- NOTE | 2018-11-30 15:09 | ED ---
Abdominal Pain/Female - HPI Summary HPI Summary: This patient is a 38 year old F presenting to [facility] accompanied by mother with a chief complaint of upper and mid abdominal pain that began today. Pt came to the ED because her primary and GI doctor discussed her CT (ward of intestine thickened) and extremely elevated CRP, and concluded she should come to the ED. Pt reports having body aches, chills, sweats, fever over 100, nausea, loss of appetite. Pt denies diarrhea. Pt has a PMHx of gastritis (after having a stomach bug in August that caused her to constantly vomit) and endometriosis. The patient rates the pain 6/10 in severity. - History of Current Complaint Chief Complaint: EDAbdPain Stated Complaint: GASTRO ISSUES/SENT BY PER PATIENT Time Seen by Provider: 11/30/18 14:55 Hx Obtained From: Patient Hx Last Menstrual Period: 11/15/18 ?: No Onset/Duration: Lasting Hours, Still Present Timing: Constant Severity Initially: Moderate Severity Currently: Moderate Pain Intensity: 6 Pain Scale Used: 0-10 Numeric Location: Other - Upper Abdomen Character: Dull, Other: - Aching Associated Signs and Symptoms: Positive: Fever, Decreased Appetite, Nausea, Other: - pos - chills, sweats. Negative: Diarrhea Allergies/Adverse Reactions: Allergies Allergy/AdvReac Type Severity Reaction Status Date / Time azithromycin [From Zithromax] Allergy Hives Verified 11/30/18 16:17 clarithromycin [From Biaxin] Allergy Hives Verified 11/30/18 16:17 lactose Allergy GI Upset Verified 11/30/18 16:17 Penicillins Allergy Hives Verified 11/30/18 16:17 red dye Allergy Hives Verified 11/30/18 16:17 Home Medications: Home Medications Omeprazole (Nf) [Prilosec (NF)] 40 mg PO DAILY 11/30/18 [History Confirmed 11/30] PMH/Surg Hx/FS Hx/Imm Hx Endocrine/Hematology History: Denies: Hx Diabetes, Hx Thyroid Disease Cardiovascular History: Denies: Hx Hypertension Respiratory History: Denies: Hx Asthma, Hx Chronic Obstructive Pulmonary Disease (COPD) GI History: Denies: Hx Ulcer History: Denies: Hx Dialysis, Hx Renal Disease - Cancer History Hx Chemotherapy: No Hx Radiation Therapy: No - Surgical History Surgery Procedure, Year, and Place: Tonsillectomy. Laproscopy for Endometriosis. cholecystectomy July 2013. wisdom teeth Hx Anesthesia Reactions: No Infectious Disease History: No Infectious Disease History: Denies: Hx Clostridium Difficile, Hx Hepatitis, Hx Human Immunodeficiency Virus (HIV), Hx of Known/Suspected MRSA, Hx Shingles, Hx Tuberculosis, Hx Known/ Suspected VRE, Hx Known/Suspected VRSA, History Other Infectious Disease, Traveled Outside the [place] in Last 30 Days - Family History Known Family History: Positive: Hypertension, Diabetes, Respiratory Disease, Other - [place] - Social History Occupation: Employed Full-time Alcohol Use: Occasionally Alcohol Amount: states a couple times a month Substance Use Type: Reports: None Smoking Status (MU): Former Smoker Type: Cigarettes Amount Used/How Often: 1/2PPD Length of Time of Smoking/Using Tobacco: 10YRS Have You Smoked in the Last Year: Yes Review of Systems Positive: Fever, Chills, Other - pos - sweats, loss of appetite, body aches Positive: Abdominal Pain, Nausea. Negative: Diarrhea All Other Systems Reviewed And Are Negative: Yes Physical Exam - Summary Physical Exam Summary: VITAL SIGNS: Reviewed. GENERAL: Patient is a well-developed and nourished female who is lying comfortable in the stretcher. Patient is not in any acute respiratory distress. HEAD AND FACE: No signs of trauma. No ecchymosis, hematomas or skull depressions. No sinus tenderness. EYES: PERRLA, EOMI x 2, No injected conjunctiva, no nystagmus. EARS: Hearing grossly intact. Ear canals and tympanic membranes are within normal limits. MOUTH: Oropharynx within normal limits. NECK: Supple, trachea is midline, no adenopathy, no JVD, no carotid bruit, no c- spine tenderness, neck with full ROM. CHEST: Symmetric, no tenderness at palpation. LUNGS: Clear to auscultation bilaterally. No wheezing or crackles. CVS: Regular rate and rhythm, S1 and S2 present, no murmurs or gallops appreciated. ABDOMEN: Soft, diffuse abdomen discomfort. No signs of distention. No rebound, no guarding, and no masses palpated. Bowel sounds are normal. EXTREMITIES: FROM in all major joints, no edema, no cyanosis or clubbing. NEURO: Alert and oriented x 3. No acute neurological deficits. Speech is normal and follows commands. SKIN: Dry and warm Triage Information Reviewed: Yes Vital Signs On Initial Exam: Initial Vitals Temp Pulse Resp BP Pulse Ox 97.8 F 87 18 129/85 96 11/30/18 12:52 11/30/18 12:52 11/30/18 12:52 11/30/18 12:52 11/30/18 12:52 Vital Signs Reviewed: Yes Diagnostics - Vital Signs Vital Signs Temp Pulse Resp BP Pulse Ox 11/30/18 12:52 97.8 F 87 18 129/85 96 - Laboratory Lab Results: Lab Results 11/30/18 11/30/18 11/30/18 Range/Units 14:13 14:13 14:13 WBC 7.5 (3.5-10.8) 10^3/uL RBC 4.18 (3.70-4.87) 10^6 /uL Hgb 12.8 (12.0-16.0) g/dL Hct 38 (35-47) % MCV 90 (80-97) fL MCH 31 (27-31) pg MCHC 34 (31-36) g/dL RDW 12 (10-15) % Plt Count 257 (150-450) 10^3/uL MPV 8.2 (7.4-10.4) fL Neut % (Auto) 67.1 % Lymph % (Auto) 24.9 % [place] % (Auto) 6.8 % Eos % (Auto) 0.9 % Baso % (Auto) 0.3 % Absolute Neuts (auto) 5.0 (1.5-7.7) 10^3/ul Absolute Lymphs (auto) 1.9 (1.0-4.8) 10^3/ul Absolute Monos (auto) 0.5 (0-0.8) 10^3/ul Absolute Eos (auto) 0.1 (0-0.6) 10^3/ul Absolute Basos (auto) 0.0 (0-0.2) 10^3/ul Absolute Nucleated RBC 0.0 10^3/ul Nucleated RBC % 0.0 Sodium 138 (135-145) mmol/L Potassium 3.5 (3.5-5.0) mmol/L Chloride 103 (101-111) mmol/L Carbon Dioxide 28 (22-32) mmol/L Anion Gap 7 (2-11) mmol/L BUN 9 (6-24) mg/dL Creatinine 0.82 (0.51-0.95) mg/dL Est GFR ( Amer) 94.4 (>60) Est GFR (Non-Af Amer) 78.0 (>60) BUN/Creatinine Ratio 11.0 (8-20) Glucose 93 (70-100) mg/dL Lactic Acid 0.5 (0.5-2.0) mmol/L Calcium 9.5 (8.6-10.3) mg/dL Total Bilirubin 0.50 (0.2-1.0) mg/dL AST 18 (13-39) U/L ALT 16 (7-52) U/L Alkaline Phosphatase 78 (34-104) U/L C-Reactive Protein 179.95 H (<8.01) mg/L Total Protein 7.2 (6.4-8.9) g/dL Albumin 4.1 (3.2-5.2) g/dL Globulin 3.1 (2-4) g/dL Albumin/Globulin Ratio 1.3 (1-3) Lipase < 10 L (11.0-82.0) U/L Beta HCG, Quant Pending Result Diagrams: 11/30/18 14:13 11/30/18 14:13 Lab Statement: Any lab studies that have been ordered have been reviewed, and results considered in the medical decision making process. - CT Abd/Pel CT CT Interpretation Completed By: Radiologist Summary of CT Findings: The abdomino/pelvic CT going on 11/29/18 impression: The appendix is not clearly visualized. There is no inflammatory changes within the right lower quadrant. There is mucosal thickening of the terminal ileum. The differential includes inflammatory bowel disease. There is no obstruction. Small amount of free fluid within the pelvic cul-de-sac. ED physician has reviewed this report. - EKG 1258 Cardiac Rate: NL EKG Rhythm: Sinus Rhythm Summary of EKG Findings: EKG reveals sinus rhythm 77bpm, no ST elevations, t- wave inversion in II. Re-Evaluation - Re-Evaluation First Eval Re-Evaluation Time: 15:30 Comment: Discussed plan of care with pt. Patient is hemodynamically stable alert and oriented x 3. Abdominal Pain Fem Course/Dx - Course Course Of Treatment: This patient is a 38 year old F presenting to [facility] accompanied by mother with a chief complaint of upper and mid abdominal pain that began today. Pt came to the ED because her primary and GI doctor discussed her CT (ward of intestine thickened) and extremely elevated CRP, and concluded she should come to the ED. Pt reports having body aches, chills, sweats, fever over 100, nausea, loss of appetite. Pt denies diarrhea. Pt has a PMHx of gastritis (after having a stomach bug in August that caused her to constantly vomit) and endometriosis. The patient rates the pain 6/10 in severity. The abdomino/pelvic CT going on 11/29/18 impression: The appendix is not clearly visualized. There is no inflammatory changes within the right lower quadrant. There is mucosal thickening of the terminal ileum. The differential includes inflammatory bowel disease. There is no obstruction. Small amount of free fluid within the pelvic cul-de-sac. In the ED the patient was given IV fluids. Patient was given Toradol for the pain. I discussed the case with Dr. Vázquez from GI and he really recommends for the patient to be admitted to the hospitalist for further workup and management. I discuss my physical exam and test results with Dr. Fulton from the hospitalist services and she agrees to admit patient to her services. Patient is hemodynamically stable alert and oriented x 3. - Diagnoses Provider Diagnoses: Lower abdominal pain - Provider Notifications Discussed Care Of Patient With: Dionisio Vázquez Time Discussed With Above Provider: 15:28 Instructed by Provider To: Other - Discussed pt case with Dr. Vázquez who will come see pt; 1605 - Dr. Vázquez suggest pt be admitted; 1658 - Discussed patient 's case with Dr. Fulton, who accepts pt for admission Discharge - Sign-Out/Discharge Documenting (check all that apply): Patient Departure - Admit Patient Received Moderate/Deep Sedation with Procedure: No - Discharge Plan Condition: Good Disposition: ADMITTED TO [facility] - Billing Disposition and Condition Condition: GOOD Disposition: Admitted to [facility] - Attestation Statements Document Initiated by Scribe: Yes Documenting Scribe: Melita Walsh Provider For Whom Scribe is Documenting (Include Credential): Dr. Juan M Calvo MD Scribe Attestation: Melita Escudero, scribed for Dr. Juan M Calvo MD on 12/01/18 at 0819. Scribe Documentation Reviewed: Yes Provider Attestation: The documentation as recorded by the Melita scott accurately reflects the service I personally performed and the decisions made by me, Dr. Juan M Calvo MD Status of Dave Document: Viewed
[2018-11-30 15:21] LABS: Urine Appearance Clear; Urine Bilirubin Negative (Negative); Urine Blood Negative (Negative); Urine Color Amber; Urine Glucose Negative (Negative); Urine Ketones 1+ (Negative); Urine Nitrite Negative (Negative); Urine Protein Negative (Negative); Urine Specific Gravity 1.016 (1.010-1.030); Urine Urobilinogen Positive (Negative)
[2018-11-30] MEDS ORDERED: Ketorolac INJ* 30 MG/ML 1 ML VIAL IV PUSH ONE (15:28)
[2018-11-30] MEDS ORDERED: NS 0.9% 1000 ML** 1,000 ML IV ONE (15:28)
[2018-11-30] MEDS ORDERED: PEG 3000 GI LAVAGE* 1 GALLON PO ONE (17:00)
--- NOTE | 2018-11-30 17:24 | CONS ---
CONSULTATION REPORT: DATE OF CONSULT: 11/30/18 REQUESTING PROVIDER: Dr. Calvo. REASON FOR CONSULT: Abnormal CT scan, abdominal pain. HISTORY OF PRESENT ILLNESS: This is a 38-year-old female with a past medical history of chronic constipation, endometriosis, who presented to the emergency room after being sent in by her primary care provider, Lucero Escalante NP, for abnormal labs and CT scan. The patient states since roughly August, she has begun to have more gastrointestinal issues, describing initially periumbilical and epigastric pain that was postprandial in nature. No dysphagia, no odynophagia. Pain was cramping, 4/10, worse after eating. She did have some NSAID use at that point. Her PCP put her on omeprazole as a trial and this did significantly improve that pain; however, within the last 2 to 3 weeks, she has had increasing abdominal pain that has been more diffuse, periumbilical at times and at times localizing to the right lower quadrant with associated subjective fever and chills. She states that she has had slight worsening of her constipation. Normally, she moves her bowels every 2 to 3 days. She has started to take fiber and at times MiraLAX to facilitate a bowel movement. She has seen no black or blood in the stool. She admits to worsening of back pain, but no other joint issues or pains. No skin rashes or lesions. She denies any ulcerations of her legs and denies any eye or vision problems. She admits to a little bit of weight loss over the last 2 to 3 weeks, also associated nausea, prior emesis beginning on Tuesday, but no hematemesis or coffee emesis. At this point, she describes her pain as 6/10 and relatively constant in the right lower quadrant. Remainder of the 14-point review of systems is grossly negative. PAST MEDICAL HISTORY: Endometriosis. PAST SURGICAL HISTORY: Cholecystectomy, wisdom teeth. HOME MEDICATIONS: Include: 1. Xyzal. 2. Nasacort. 3. Occasional NSAIDs. ALLERGIES TO MEDICATIONS: Include AZITHROMYCIN, CLARITHROMYCIN, LACTOSE, PENICILLINS, and RED DYE; all which elicit hives. FAMILY HISTORY: No known family history of GI cancer or IBD. SOCIAL HISTORY: No tobacco, but prior smoker half pack a day. Denies any illicit substances. Social alcohol. REVIEW OF SYSTEMS: Remainder of the 14-point review of systems is grossly negative. PHYSICAL EXAM: Vital Signs: Blood pressure is 129/85, pulse 87, respiratory rate 18, temperature is 97.8, 96% on room air. In general, alert and oriented x3, in no acute distress. HEENT: Atraumatic, normocephalic. Pupils equal, round, reactive to light. Extraocular movements are intact. Conjunctivae are pink. Sclerae are anicteric. Cardiovascular: Regular rate and rhythm. S1, S2. Respiratory: Clear to auscultation bilaterally. Abdomen: Soft. Tenderness to palpation in the right lower quadrant with [id number] palpation. No guarding or rebound appreciated. No palpable hepatosplenomegaly. Extremities: No clubbing, no cyanosis, no edema. Skin is without rash or lesions. A few scattered tattoos are on the skin. Psych: Appropriate mood and affect. DIAGNOSTIC STUDIES/LAB DATA: Hemoglobin 12.8, WBC count 7.5. Sodium 138, potassium 3.5, lactic acid 0.5. CRP is 179. Albumin 4.1. Alkaline phosphatase 78, AST 18, ALT 16. She had a CT of the abdomen and pelvis that was done on 11/29/18. This showed thickening of the terminal ileum. The appendix was not visualized, but there was no inflammatory change within the right lower quadrant. ASSESSMENT AND PLAN: This is a 38-year-old female, who presented with right lower quadrant abdominal pain, elevated CRP and difficulty tolerating p.o. Right lower quadrant pain. CT reveals thickening of the terminal ileum. No gross inflammatory change in the right lower quadrant, but there is thickening of the terminal ileum. This can be suspicious for potential inflammatory bowel disease. She is nontoxic, but has not been able to tolerate oral food at home. Given the severity of her illness over the last couple weeks, I recommended admission and we will plan on colonoscopy with Dr. Patel on 12/01/18 to evaluate the terminal ileum. Discussed the risks, benefits, and alternatives to the procedure and the patient would like to proceed. [id number]/CPS #: [id number] MTDD
[2018-11-30] MEDS ORDERED: Morphine INJ* 2 MG/ML 1 ML SYRINGE (TWO MG - NEW SYRINGE VERSION) IV PRN (17:45)
[2018-11-30] MEDS ORDERED: Acetaminophen TAB* 325 MG PO PRN (17:45)
--- NOTE | 2018-11-30 19:13 | HP ---
CC: Lucero Escalante NP; Dr. Vázquez; Dr. Patel * HISTORY AND PHYSICAL: DATE OF ADMISSION: 11/30/18 PRIMARY CARE PROVIDER: Lucero Escalante NP CHIEF COMPLAINT: Abdominal pain. HISTORY OF PRESENT ILLNESS: Theresa Betancourt is a 38-year-old female with history of endometriosis, who has been having problems with abdominal pain for approximately a week and a half. She describes the pain as constant pressure localized periumbilically. It does not change with eating, but her appetite was down to the minimum to the point that she lost approximately 5 pounds in the past 1 week. She stated that she had been constipated for the past several days, but she finally had a bowel movement after MiraLAX a couple of days ago. That did not improve the pain. She stated that every morning she gets nauseated and the nausea does not really improve with food. Her primary care provider ordered CT of abdomen yesterday, which showed mucosal thickening of the terminal ileum with a differential that includes inflammatory bowel disease. Dr. Vázquez saw the patient in consultation from Gastroenterology and recommended a colonoscopy tomorrow. The patient is going to be placed on overnight observation as per Gastroenterology recommendation. PAST MEDICAL HISTORY: 1. History of endometriosis. 2. Status post cholecystectomy. MEDICATIONS: At home include: 1. Multivitamin 1 tablet daily. 2. Vitamin D3 1000 units daily. 3. Omeprazole 40 mg daily. 4. Nasonex nasal spray, 2 sprays both nostrils at bedtime. 5. Xyzal 5 mg daily. ALLERGIES: AZITHROMYCIN, CLARITHROMYCIN, LACTULOSE INTOLERANCE, PENICILLINS, RED DYE. FAMILY HISTORY: Negative for GI problems. SOCIAL HISTORY: The patient is an accountant cost and single. As her healthcare proxy, she requested her father, Kory Betancourt, his phone number is . REVIEW OF SYSTEMS: Please see history of present illness. All the remaining 12 systems were reviewed with the patient and were otherwise negative. PHYSICAL EXAMINATION GENERAL: The patient is a very pleasant 38-year-old female, who is in no acute distress, alert, awake, and oriented x3. VITAL SIGNS: Blood pressure of 119/82, heart rate of 79 and regular, respiratory rate 16, oxygen saturation 97% on room air, temperature 98.9. HEENT: Head: Atraumatic, normocephalic. Eyes: Pupils are equal and reactive to light and accommodation. Oropharynx clear. Mucosa moist. NECK: Supple. No JVD, no bruits bilaterally. RESPIRATORY: Clear to auscultation bilaterally. CARDIOVASCULAR: Regular rate and rhythm. No murmur. ABDOMEN: Soft. Mild diffuse tenderness on palpation, more so periumbilically with no rebound, no guarding. Bowel sounds are present in all 4 quadrants. EXTREMITIES: There is no edema. Pulses are +2 bilaterally. No clubbing or cyanosis. NEUROLOGIC: On neuro evaluation, speech is clear. Cranial nerves II through XII grossly intact. Motor strength is 5/5 bilaterally. SKIN: On evaluation of the skin, no ecchymotic areas or rashes noted. DIAGNOSTIC STUDIES/LAB DATA: Laboratory data was mostly unremarkable with a white blood cell count of 7.5, hemoglobin 12.8, hematocrit 38, and platelets 257. Sodium 138, potassium 3.5, chloride 103, carbon dioxide 28, BUN 9, creatinine 0.82. Liver function tests were unremarkable. C-reactive protein 179. Beta-hCG below 0.6. Lactic acid 0.5. Urinalysis positive for trace ketones and urobilinogen. ASSESSMENT AND PLAN: 1. Periumbilical abdominal pain with terminal ileitis noted on CT of the abdomen and pelvis on 11/29/18. As per Dr. Vázquez, recommendation was to keep the patient on overnight observation with colonoscopy prep today and colonoscopy in the morning. The patient is going to be placed on gentle intravenous hydration. 2. For DVT prophylaxis, the patient is low risk and ambulation is going to be encouraged. TIME SPENT: Approximately 55 minutes was spent on admission of this patient, more than half of that time was spent [id number] with the patient during the interview and physical exam. [id number]/[facility] #: [id number] [facility]
[2018-11-30] MEDS: NS 0.9% 1000 ML** 1,000 ML IV SCH (20:08)
[2018-11-30] MEDS ORDERED: Fluticasone NASAL SPRAY 50MCG* 16 gm SPRAY BTL BOTH NARES SCH (21:00)
[2018-12-01] MEDS: Ondansetron INJ* 2 MG/ML VIAL IV PRN ×3 (01:16→22:08)
[2018-12-01] MEDS ORDERED: PTO: Mometasone NASAL (NF) SPRAY BOTH NARES SCH (03:17)
[2018-12-01] MEDS: NS 0.9% 1000 ML** 1,000 ML IV SCH ×2 (05:47→19:00)
[2018-12-01] MEDS ORDERED: PEG 3000 GI LAVAGE* 1 GALLON PO ONE (07:00)
[2018-12-01] MEDS: Pantoprazole TAB * 40 MG TAB PO SCH (07:39)
[2018-12-01 08:57] LABS: BUN/Creatinine Ratio 11.7 (8-20); Calcium 8.7 mg/dL (8.6-10.3); EGFR African American 135.4 (>60); EGFR Non-African American 111.9 (>60); Potassium 3.4 mmol/L (3.5-5.0)
[2018-12-01] MEDS ORDERED: Midazolam* 1 MG/ML 10 ML VIAL (10 MG) ONE (15:03)
[2018-12-01] MEDS ORDERED: fentaNYL* 50 MCG/ML 2 ML VIAL (100 MCG VIAL) ONE (15:03)
[2018-12-01] MEDS ORDERED: KCL 20 MEQ/100 ML IVPREMIX* 20 MEQ/100 ML BAG IV ONE (16:07)
--- NOTE | 2018-12-01 16:07 | PN ---
Subjective Date of Service: 12/01/18 Interval History: pt is seen prior to colonoscopy. Abd pain is unchanged. C/o slight nausea. Bowel movements are clear and loose after prep Objective Active Medications: Acetaminophen (Tylenol Tab*) 650 mg PO Q4H PRN PRN Reason: PAIN - MILD Sodium Chloride (Ns 0.9% 1000 Ml) 1,000 mls @ 100 mls/hr IV PER RATE [facility] Last Admin: 12/01/18 05:47 Dose: 100 mls/hr Mometasone Furoate (Nasonex (Nf)) 2 spray BOTH NARES BEDTIME [facility] Morphine Sulfate (Morphine Inj (Syringe))*) 1 mg IV Q4H PRN PRN Reason: PAIN - MODERATE TO SEVERE Last Admin: 12/01/18 01:17 Dose: 1 mg Ondansetron HCl (Zofran Inj*) 4 mg IV Q4H PRN PRN Reason: NAUSEA/VOMITING Last Admin: 12/01/18 10:31 Dose: 4 mg Pantoprazole Sodium (Protonix Tab*) 40 mg PO DAILY [facility] Last Admin: 12/01/18 07:39 Dose: Not Given Vital Signs - 8 hr 12/01/18 08:06 Blood Pressure 102/70 (mmHg) Oxygen Devices in Use Now: None Appearance: 38 yo F in nAD, AAOx3 Eyes: No Scleral Icterus, PERRLA Ears/Nose/Mouth/Throat: NL Teeth, Lips, Gums, Mucous Membranes Moist Neck: NL Appearance and Movements; NL JVP, Trachea Midline Respiratory: Symmetrical Chest Expansion and Respiratory Effort, Clear to Auscultation Cardiovascular: NL Sounds; No Murmurs; No JVD, RRR Abdominal: - - mild periumbilical tenderness, no rebound, no guarding. BS+ Extremities: No Edema Skin: No Rash or Ulcers, No Nodules or Sclerosis Neurological: Alert and Oriented x 3, NL Muscle Strength and Tone Result Diagrams: 11/30/18 14:13 12/01/18 08:18 Additional Lab and Data: Lab Results 11/30/18 11/30/18 11/30/18 Range/Units 14:13 14:13 14:13 WBC 7.5 (3.5-10.8) 10^3/uL RBC 4.18 (3.70-4.87) 10^6 /uL Hgb 12.8 (12.0-16.0) g/dL Hct 38 (35-47) % MCV 90 (80-97) fL MCH 31 (27-31) pg MCHC 34 (31-36) g/dL RDW 12 (10-15) % Plt Count 257 (150-450) 10^3/uL MPV 8.2 (7.4-10.4) fL Neut % (Auto) 67.1 % Lymph % (Auto) 24.9 % [place] % (Auto) 6.8 % Eos % (Auto) 0.9 % Baso % (Auto) 0.3 % Absolute Neuts (auto) 5.0 (1.5-7.7) 10^3/ul Absolute Lymphs (auto) 1.9 (1.0-4.8) 10^3/ul Absolute Monos (auto) 0.5 (0-0.8) 10^3/ul Absolute Eos (auto) 0.1 (0-0.6) 10^3/ul Absolute Basos (auto) 0.0 (0-0.2) 10^3/ul Absolute Nucleated RBC 0.0 10^3/ul Nucleated RBC % 0.0 Sodium 138 (135-145) mmol/L Potassium 3.5 (3.5-5.0) mmol/L Chloride 103 (101-111) mmol/L Carbon Dioxide 28 (22-32) mmol/L Anion Gap 7 (2-11) mmol/L BUN 9 (6-24) mg/dL Creatinine 0.82 (0.51-0.95) mg/dL Est GFR ( Amer) 94.4 (>60) Est GFR (Non-Af Amer) 78.0 (>60) BUN/Creatinine Ratio 11.0 (8-20) Glucose 93 (70-100) mg/dL Lactic Acid 0.5 (0.5-2.0) mmol/L Calcium 9.5 (8.6-10.3) mg/dL Total Bilirubin 0.50 (0.2-1.0) mg/dL AST 18 (13-39) U/L ALT 16 (7-52) U/L Alkaline Phosphatase 78 (34-104) U/L C-Reactive Protein 179.95 H (<8.01) mg/L Total Protein 7.2 (6.4-8.9) g/dL Albumin 4.1 (3.2-5.2) g/dL Globulin 3.1 (2-4) g/dL Albumin/Globulin Ratio 1.3 (1-3) Lipase < 10 L (11.0-82.0) U/L Beta HCG, Quant Pending Assess/Plan/Problems-Billing Assessment: 38 yo F with h/o endometriosis with abd pain and poss terminal ileitis on CT - Patient Problems (1) Abdominal pain Comment: CT showing poss terminal ileitis for c-scope today (2) DVT prophylaxis Comment: low risk, ambulation Status and Disposition: OBV
--- NOTE | 2018-12-01 21:44 | PRO ---
DATE: 12/01/18 REFERRING PHYSICIAN: Dionisio Vázquez DO * PROCEDURE: Upper gastrointestinal endoscopy and CLOtest; colonoscopy and ileoscopy with biopsy of 2 areas of terminal ileal ulceration. INDICATION: This 38-year-old woman has had GI symptoms since mid August initially focused on dyspepsia with some heartburn tapering off in September and/or October following a brief course of omeprazole and then coming back. Her initial labs were normal Hg 13.4 albumin 4.4 ALT 15 - except CRP 48.86 There had been no sense of feverishness or fever until 4 days ago. There had been no vomiting since the first week or 2 of the illness. Her bowels have been constipated if anything with no report of diarrhea. Her CRP is grossly elevated in the 170 range. White count was normal. Two days ago on outpatient CT the terminal ileum was thickened and there was a minimal amount of pelvic fluid and a bilateral prominent though normal ovarian cysts that were small. ENDOSCOPIST: Dr. Patel MEDICATIONS: Midazolam 12, fentanyl 125. FINDINGS: She is a slender, healthy-appearing young woman in no overt distress. She was positioned in the left side down and moderation sedation induced with sequential doses of medication. EGD: Larynx - symmetric limited views. Esophagus - easily entered and the mucosa is normal in the upper, mid, and lower esophagus with a little bit of sliding prolapse with initial intubation, but this evens out easily. The distal esophageal mucosa appears normal. There are no erosions and no scar. During withdrawal, the area was completely normal. Stomach - generally normal mucosa in the cardia, fundus, body and antrum. Duodenum - the pylorus, bulb, and second through fourth portions were normal. A CLOtest taken during withdrawal. COLONOSCOPY: Initial views show an excellent prep and normal mucosa. The adult scope passes easily through the rectosigmoid, sigmoid, descending, transverse, and right colon. The mucosa appeared normal. The cecum was normal as was the ileocecal valve. Entering the terminal ileum, there were flat areas of superficial pink fleshy ulceration. They were broad and were 4 such areas, the second and third a little bit connected. They involved 30% to 40% of the mucosal surface. At about 16 to 17 cm, further advancement was difficult and not pursued. Biopsies were taken at 12 cm and from a separate area of the ulcerated flat denuded mucosa at 5 to 6 cm. During slow withdrawal, there were no additional findings. Rectal retroflexion was normal. IMPRESSION: 1. Normal EGD. Clotest negative 2. Normal colonoscopy. 3. Ileal ulcerations - probably represents inflammatory bowel disease. The biopsies are pending and the presentation is not completely typical and therapeutic decisions are deferred. Pentasa or budesonide are possible. [id number]/[facility] #: [id number] MTDD
[2018-12-02] MEDS: NS 0.9% 1000 ML** 1,000 ML IV SCH (05:34)
[2018-12-02 07:04] LABS: ABS Eosinophils 0.1 10^3/ul (0-0.6); ABS Lymphocytes 2.2 10^3/ul (1.0-4.8); ABS Monocytes 0.5 10^3/ul (0-0.8); ABS Neutrophils 3.9 10^3/ul (1.5-7.7); Hematocrit 31 % (35-47); Lymphocyte % 32.4 %; Mean Corpuscular HGB Conc 35 g/dL (31-36); Mean Corpuscular Hemoglobin 31 pg (27-31); Mean Corpuscular Volume 89 fL (80-97); Mean Platelet Volume 7.8 fL (7.4-10.4); Platelet Count 252 10^3/uL (150-450); Red Blood Count 3.52 10^6 /uL (3.70-4.87); Red Cell Distribution Width 12 % (10-15); White Blood Count 6.8 10^3/uL (3.5-10.8)
[2018-12-02 07:36] LABS: Albumin 3.1 g/dL (3.2-5.2); Calcium 8.8 mg/dL (8.6-10.3); Potassium 3.8 mmol/L (3.5-5.0); Total Bilirubin 0.3 mg/dL (0.2-1.0)
[2018-12-02 07:42] LABS: Albumin/Globulin Ratio 1.2 (1-3); BUN/Creatinine Ratio 9.1 (8-20); EGFR African American 149.7 (>60); EGFR Non-African American 123.7 (>60); Globulin 2.5 g/dL (2-4); Total Protein 5.6 g/dL (6.4-8.9)
[2018-12-02 09:11] LABS: Erythrocyte Sed Rate 52 mm/Hr (0-19)
[2018-12-02 09:15] LABS: C Reactive Protein 65.73 mg/L (<8.01)
[2018-12-02] MEDS: Pantoprazole TAB * 40 MG TAB PO SCH (09:56)
[2018-12-02 11:31] VITALS: BP 116/73
--- NOTE | 2018-12-02 12:37 | CONS ---
GASTROENTEROLOGY CONSULT FOLLOWUP: DATE OF CONSULT: 12/02 HISTORY: This 38-year-old woman admitted with lower abdominal pain and feverishness over 2 days,while in house has had a stable course with no documented fever and just a low background lower abdominal discomfort. She did prep very well for a colonoscopy. Upper endoscopy was negative. Colonoscopy showed broad terminal ileal ulcers that appeared fairly superficial. They corresponded very well with the CT scan coronal images. There were just a few aphthoid lesions and the visual impression was somewhat atypical. Biopsies are pending. Serology for saccharomyces antibody is pending. She felt well in general and it was noted her CRP fell from 194 on admission to 65, though her apparent baseline 09/07/18 (in the ER 2days after onset of acute diarrhea 2 days after 09/04 tax season) had been 48.86 and interpreting what her anticipated baseline would be is unclear. Her illness seemed to begin with a simultaneous outbreak of apparent viral gastroenteritis in multiple family members, though she continued to be ill later and actually was in the emergency room and potassium 2.8 on 09/07/18. The other family members have not had any extended course. Exam - alert comfortable in NAD afebrile. Chest clear. Abdomen soft with diffuse "touchiness" though no guarding. Skin normal At this time while inflammatory bowel disease seems quite likely, the somewhat atypical course is noted and the patient says that she tolerates prednisone poorly (psychological side effects 5 years ago with a sinus infection) and thus would prefer to avoid that if possible. Thus, she will be sent home on Pentasa 250 four three times a day and a bland diet and await further studies. [id number]/[facility] #: [id number] BRAULIO
--- NOTE | 2018-12-02 12:53 | DS ---
CC: Lucero Escalante NP; Dr. Patel * DISCHARGE SUMMARY: DATE OF ADMISSION: 11/30/18 DATE OF DISCHARGE: 12/02/18 PRIMARY CARE PROVIDER: Lucero Escalante NP DISCHARGE DIAGNOSIS: Abdominal pain in a patient with diagnosis of terminal ileitis, status post colonoscopy performed by Dr. Patel on 12/01/18. MEDICATIONS AT DISCHARGE: Include: 1. Vitamin D3 2000 units daily. 2. Xyzal 5 mg daily. 3. Nasonex 2 sprays both nostrils daily. 4. Multivitamin 1 tablet daily. 5. Omeprazole 40 mg daily. 6. Mesalamine 250 mg 3 times a day that is a new medication. DISCHARGE INSTRUCTIONS: The patient is instructed to have CBC, CMP, and CRP drawn on 12/05/18. The patient is instructed to call Dr. Patel's office early next week to schedule an appointment for 12/06/18. The patient is also recommended to follow up with her primary care provider in approximately 4 to 7 days. PROCEDURES PERFORMED DURING THE HOSPITAL STAY: Included colonoscopy on performed by Dr. Patel with impression: "Normal EGD. Normal colonoscopy. Ileal ulcerations probably representing inflammatory bowel disease. The biopsies are pending and the presentation is not completely typical and therapeutic decisions are deferred. Pentasa or budesonide is possible." DIAGNOSTIC STUDIES/LAB DATA: Laboratory data at discharge included white blood cell count 6.8, hemoglobin 11.0, hematocrit 31, and platelets 252. ESR was 52. Sodium 139, potassium 3.8, chloride 110, carbon dioxide 25, BUN 5, creatinine 0.55. Liver function tests were unremarkable. C-reactive protein at admission was 179 and on the day of discharge was 65. CLOtest from the gastric biopsy was negative. CONSULTATION DURING THE HOSPITAL STAY: Included Dr. Patel from Gastroenterology. HOSPITALIZATION COURSE: Theresa Betancourt is a 38-year-old female, who presented to the hospital complaining of abdominal pain. She has had some symptoms going on back to August of 2018. Initially, it was heartburn. At the end of August, she got gastrointestinal illness likely with viral gastroenteritis that all of her family members had with nausea, vomiting, and diarrhea. Post that illness, she started developing mid abdominal pain, which was mostly periumbilical, rather constant. She also started getting constipated. She followed up with Dr. Patel, who recommended for the patient to be seen in the ED for evaluation. Please also note that the patient had outpatient CT of the abdomen, which showed likely terminal ileitis. Dr. Patle performed colonoscopy, which showed inflammation of the terminal ileum. He discussed options with the patient and recommended at this point to discharge the patient on Pentasa as a new medication for likely inflammatory bowel disease. The patient is going to be following with Dr. Patel in the next several days once her pathology report is going to be back. DISPOSITION AT DISCHARGE: Home. CONDITION AT DISCHARGE: Stable. PHYSICAL EXAMINATION: At the time of discharge, blood pressure 116/73, heart rate of 71 and regular, respiratory rate 18, oxygen saturation 98% on room air, temperature 98.8. General: The patient is a very pleasant 38-year-old female, who is in no acute distress. Alert, awake, and oriented x3. HEENT: Head: Atraumatic, normocephalic. Eyes: Pupils are equal, reactive to light and accommodation. Oropharynx is clear. Mucosa moist. Neck: Supple. No JVD. No bruits bilaterally. Cardiovascular: Regular rate and rhythm. No murmur. Respiratory: Clear to auscultation bilaterally. Abdomen: Soft, mildly tender in the periumbilical area with no rebound and no guarding. Bowel sounds are present in all 4 quadrants. Extremities: There is no edema. Pulses are +2 bilaterally. There is no clubbing or cyanosis. On evaluation of the skin, no ecchymotic areas or rashes noted. Please note that this is a short summary of the patient's hospital stay. Please refer to further medical records for details. TIME SPENT: Approximately 40 minutes was spent on the patient's discharge. [id number]/[facility] #: [id number] [facility]
== END 2018-12-02 13:00 | disposition home or self-care (01) ==
LOC: ED 12:44 → MED 17:45
PROVIDERS: ADMIT Internal Medicine; ATTEND Internal Medicine
DX: K50.00 Crohn's disease of small intestine without complications (principal); R10.9 Unspecified abdominal pain; Z79.899 Other long term (current) drug therapy; Z88.0 Allergy status to penicillin
CPT/HCPCS: 36415; 80048; 80053; 81003; 83605; 83690; 84702; 85025; 85652; 86140; 86671; 87077; 88305; 93005; 96361; 96365; 96366; 96375; 96376; 99156; 99157; 99283; A9270-GY; G0378; J1885; J2250; J2270; J2405; J3010; J3480

== ENCOUNTER 2023-11-04 13:45 | Observation (INO) ==
[2023-11-04 14:11] LABS: ABS Eosinophils 0.1 10^3/uL (0.0-0.5); ABS Lymphocytes 2.2 10^3/uL (1.0-4.8); ABS Monocytes 0.4 10^3/uL (0.0-0.9); ABS Neutrophils 6.1 10^3/uL (1.5-7.6); Eosinophil % 0.6 %; Hematocrit 39.6 % (35-45); Hemoglobin 13.5 g/dL (11.5-14.3); Lymphocyte % 25.1 %; Mean Corpuscular Hemoglobin 31.1 pg (27-33); Mean Corpuscular Hgb Conc 34.2 g/dL (31-36); Mean Corpuscular Volume 90.9 fL (80-97); Mean Platelet Volume 7.8 fL (7.5-11.2); Platelet Count 322 10^3/uL (150-450); Red Blood Count 4.35 10^6/uL (3.63-4.92); Red Cell Distribution Width 12.8 % (12-17); White Blood Count 8.9 10^3/uL (3.8-11.8)
[2023-11-04 14:20] LABS: INR 0.97 (0.83-1.13)
[2023-11-04 14:47] LABS: High Sens Troponin Baseline < 3 pg/mL (<15)
[2023-11-04 15:11] LABS: ALT 15 U/L (7-52); AST 18 U/L (13-39); Albumin 4.3 g/dL (3.2-5.2); Albumin/Globulin Ratio 1.5 (1-3); Alkaline Phosphatase 69 U/L (35-149); Anion Gap 7 mmol/L (2-16); Blood Urea Nitrogen 14 mg/dL (6-24); CO2 Carbon Dioxide 24 mmol/L (22-32); Calcium 9.8 mg/dL (8.6-10.3); Chloride 106 mmol/L (101-111); Creatinine, Serum 0.87 mg/dL (0.51-0.95); Globulin 2.8 g/dL (2-4); Glucose 103 mg/dL (70-100); Potassium 3.7 mmol/L (3.5-5.0); Sodium 137 mmol/L (135-145); Total Bilirubin 0.5 mg/dL (0.2-1.0); Total Protein 7.1 g/dL (6.4-8.9); eGFR CKD-EPI 84.7 (>60)
[2023-11-04 15:35] LABS: High Sensitivity Troponin 1 Hr < 3 pg/mL (<15)
[2023-11-04] MEDS: Lactated Ringers 1000 ml BAG 1,000 ML IV ONE ×2 (19:37→23:25)
[2023-11-04] MEDS: Dexamethasone IV 4 MG/ML VIAL 1 ml VIAL IV SLOW PU ONE (19:42)
[2023-11-05] MEDS ORDERED: Levalbuterol HFA INHALER MDI INH PRN (02:53)
[2023-11-05] MEDS ORDERED: Fluticasone NASAL SPRAY 50MCG 16 gm SPRAY BTL BOTH NARES PRN (03:06)
[2023-11-05 05:00] LABS: ABS Lymphocytes 1.3 10^3/uL (1.0-4.8); ABS Monocytes 0.1 10^3/uL (0.0-0.9); ABS Neutrophils 5.7 10^3/uL (1.5-7.6); Hematocrit 36.3 % (35-45); Hemoglobin 12.6 g/dL (11.5-14.3); Lymphocyte % 17.8 %; Mean Corpuscular Hemoglobin 31.6 pg (27-33); Mean Corpuscular Hgb Conc 34.8 g/dL (31-36); Mean Corpuscular Volume 90.8 fL (80-97); Mean Platelet Volume 7.9 fL (7.5-11.2); Platelet Count 316 10^3/uL (150-450); Red Cell Distribution Width 12.8 % (12-17); White Blood Count 7.1 10^3/uL (3.8-11.8)
[2023-11-05 05:37] LABS: Albumin 3.8 g/dL (3.2-5.2); Albumin/Globulin Ratio 1.7 (1-3); Calcium 9.3 mg/dL (8.6-10.3); Creatinine, Serum 0.71 mg/dL (0.51-0.95); Globulin 2.3 g/dL (2-4); Potassium 4.1 mmol/L (3.5-5.0); Total Bilirubin 0.6 mg/dL (0.2-1.0); Total Protein 6.1 g/dL (6.4-8.9); eGFR CKD-EPI 108.1 (>60)
[2023-11-05] MEDS: NF: (Azelastine 137 mcg (0.1 %) Aerosol,Spray) INTRANASAL SCH (09:36)
[2023-11-05] MEDS: Enoxaparin 80 MG/0.8 ML SYR SUBCUT SCH (09:36)
[2023-11-05] MEDS: Iohexol 350 (CONTRAST) 500 ML MDV IV ONE (11:19)
[2023-11-05 11:27] VITALS: BP 130/95
== END 2023-11-05 13:15 | disposition home or self-care (01) ==
LOC: ED 13:45 → EDHOLD 13:45 → SUATTDRO 23:55 → EDHOLD 11-05 07:41 → MEDTELE 11-05 11:02
PROVIDERS: ADMIT Student in an Organized Health Care Education/Training Program; ATTEND Internal Medicine